=== PATIENT | female | born 1950 | race Caucasian/White ===

== ENCOUNTER → 2023-08-17 11:19 | Outpatient (BNVA) | payer OTHER, SELFPAY | PROVIDERS: PCP Physician Assistant; Visit Provider Internal Medicine Nephrology ==

== ENCOUNTER → 2023-10-24 11:42 | Outpatient (BNVA) | payer OTHER, SELFPAY | PROVIDERS: PCP Physician Assistant; Visit Provider Internal Medicine Nephrology | DX: Z94.0 Kidney transplant status (principal) ==

== ENCOUNTER 2024-05-08 12:15 | Outpatient (REF) | payer MEDICARE, OTHER, SELFPAY ==
--- OUTSIDE RECORDS SUMMARY | 2024-05-08 13:47 | XMS_ITS | Continuity of Care Document ---
Author Organization [facility] Address [address] [place] [id number]- Care Team Providers Care Supervisor Rubber Covering Name Role Phone Toñito Sharpe MD Primary Care Physician Encounter [facility] R [id number] Date(s): 03/11/24 - 04/10/24 [facility] [address] [place] [address] Encounter Type: Triage Allergies, Adverse Reactions, Alerts Substance Criticality Severity Reaction Reaction Severity Status codeine Itching Active Bactrim Tongue swelling Acti ve Immunizations Given and Recorded Vaccine Date Status Refusal Reason SARS-CoV-2 (COVID-19) mRNA BNT-162b2 vac 01/18/22 Recorded SARS-CoV-2 (COVID-19) mRNA BNT-162b2 vac 09/04/21 Recorded SARS-CoV-2 (COVID-19) mRNA BNT-162b2 vac 01/19/21 Recorded SARS-CoV-2 (COVID-19) mRNA BNT-162b2 vac 05/29/20 Recorded SARS-CoV-2 (COVID-19) mRNA BNT-162b2 vac 05/08/20 Recorded hepatitis B adult vaccine 11/08/21 Recorded hepatitis B adult vaccine 10/11/21 Recorded hepatitis B adult vaccine 09/03/21 Recorded hepatitis B adult vaccine 07/12/21 Recorded hepatitis B adult vaccine 04/09/21 Recorded hepatitis B adult vaccine 03/10/21 Recorded Medications aspirin 81 mg oral delayed release tablet 81 mg, 1, tablet, By Mouth, Daily, # 30 tablet, Refills 0, Maintenance, 02/18/22 11:57:00 AM EST, Partial fill upon patient request if the prescription is for a schedule II opioid drug. Start Date: 02/18/22 Status: Ordered Quantity: 30.0 Unit: tablet Repeat number: 1 atorvastatin 40 mg oral tablet 1 tablet = 40 mg, By Mouth, Daily, # 30 tablet, 5 Refills, Maintenance, 02/18/22 11:57:00 AM EST, Tablet, Partial fill upon patient request if the prescription is for a schedule II opioid drug. Start Date: 02/18/22 Status: Ordered Quantity: 30.0 Unit: tablet Repeat number: 1 carvedilol 25 mg oral tablet 25 mg, 1, tablet, By Mouth, 2 times a day, # 60 tablet, Refills 4, Tot. Refills 4, Maintenance, 10/06/22 11:13:00 AM EDT, Route to Pharmacy Electronically, [facility]/pharmacy #[id number], Partial fill upon patientrequest if the prescription is for a schedule II opioid drug., 154.94, cm, 10/06/22 10:41:00 EDT, Height, 64.8, kg, 09/30/22 6:41:00 EDT, Dry Weight Start Date: 10/06/22 Status: Ordered Quantity: 60.0 Unit: tablet Repeat number: 5 doxazosin 4 mg oral tablet 1 tablet = 4 mg, By Mouth, Daily at bedtime, Maintenance, 08/09/23 7:43:00 AM EDT, Tablet Start Date: 08/09/23 Status: Ordered Repeat number: 1 Envarsus XR 0.75 mg oral tablet, extended release See Instructions, 11/17/22 Take with 1mg tablets for a total daily dose of 3mg daily in the AM, # 75 tablet, 3 Refills, Maintenance, 11/03/22 3:42:00 PM EDT, [facility], Partial fill upon patient request if the prescription is for a schedule II opioid drug., 154.94, cm, 11/03/22 13:07:00 EDT, Height, 64.8, kg, 09/30/22 6:41:00 EDT, Dry Weight Start Date: 11/03/22 Status: Ordered Quantity: 75.0 Unit: tablet Repeat number: 4 Envarsus XR 1 mg oral tablet, extended release See Instructions, 11/17/22 Take with 0.75mg tablets for a total daily dose of 3 mg daily in the AM,# 240 tablet, 3 Refills, Maintenance, 09/30/22 3:20:00 PM EDT, [facility], Partial fill upon patient request if the prescription is for a schedule II opioid drug., 154.94, cm, 09/29/22 20:28:00 EDT, Height, 64.8, kg, 09/30/22 6:41:00 EDT, Dry Weight Start Date: 09/30/22 Status: Ordered Quantity: 240.0 Unit: tablet Repeat number: 4 folic acid 0.4 mg oral tablet 1 tablet = 0.4 mg, By Mouth, Daily, # 100 tablet, 0 Refills, Maintenance, 02/18/22 11:58:00 AM EST,Tablet, Partial fill upon patient request if the prescription is for a schedule II opioid drug. Start Date: 02/18/22 Status: Ordered Quantity: 100.0 Unit: tablet Repeat number: 1 levETIRAcetam 250 mg oral tablet 1 tablet, By Mouth, 2 times a day, # 60 tablet, 11 Refills, Maintenance, 11/16/22 8:32:00 AM EDT, [id number], 154.94, cm, 11/15/22 14:56:00 EDT, Height, 64.8, kg, 09/30/22 6:41:00 EDT, Dry Weight Start Date: 11/16/22 Status: Ordered Quantity: 60.0 Unit: tablet Repeat number: 1 losartan 50 mg oral tablet 50 mg, 1, tablet, By Mouth, Daily, # 30 tablet, Refills 3, Tot. Refills 3, Maintenance, 12/22/22 3:41:00 PM EDT, Route to Pharmacy Electronically, [facility], Partial fill upon patient request if the prescription is for a schedule II opioid drug., 154.94, cm, 12/22/22 8:01:00 EDT, Height, 64.8, kg, 09/30/22 6:41:00 EDT, Dry Weight Start Date: 12/22/22 Status: Ordered Quantity: 30.0 Unit: tablet Repeat number: 4 Tizanidine 4 mg, By Mouth, 3 times a day, PRN, Refills 0, Maintenance, Spasm, 03/08/17 2:11:33 PM EST Start Date: 03/08/17 Status: Ordered Repeat number: 1 Vitamin D3 = 2,000 units, By Mouth, Daily, 0 Refills, Maintenance, 01/17/18 9:05:21 AM EDT Start Date: 01/17/18 Status: Ordered Repeat number: 1 Problem List Condition Confirmation Course Effective Dates Status H ealth Status Informant Cardiomyopathy Confirmed Active GERD (gastroesophageal reflux disease) Confirmed Active Status post -donor kidney transplantation 1 Confirmed 09/29/22 Active History of subdural hematoma 2 Confirmed Active Hyperlipidemia Confirmed Active Hypertension Confirmed Active Iliopsoas bursitis Confirmed Active 1campath induction 2s/p Cyndy hole craniotomy Social History Social History Type Response Smoking Status Never smoker entered on: 01/25/16 Sex Sex Representation Female (finding) Patient Care team information Care Team Personnel Name: Nara Lema RN Position: [facility] SN RN Member Role: Primary Care Nurse Name: Jame Bennett MD Position: [facility] Renal MD Member Role: Lifetime Consulting Physician Address: [address] [place], [place] [address] [place] [address]- Telecom: Name: Tang KIM, Zluy Position: [facility] RN Member Role: Primary Care Nurse Name: Jinny Mcclain MD Position: [facility] Renal MD Member Role: Lifetime Consulting Physician Address: [address] [facility] [place] [place] [address]- Telecom: Name: Toñito Sharpe MD Position: [facility] Physician - Primary Care Member Role: PCP Address: [address] [place] [address]- Telecom: Name: Clarisa Rainey Position: [facility] AMB [place] Member Role: Primary Care Nurse Care Team Related Persons Name: HORACE ELIAS Name: IVAN ERWIN Name: FELICIANO WELLS Insurance Providers Guarantor name: MERCEDEZ ELIAS Health Plan Information #: 1 Payer: MEDICARE PART B OUTPT Member Number: NA Policy Number: NA Group Number: NA Health Plan Information #: 2 Payer: [facility] Member Number: NA Policy Number: NA Group Number: NA
--- OUTSIDE RECORDS SUMMARY | 2024-05-08 13:47 | XMS_ITS | Encounter Summary ---
Author Organization [facility] Address [address] [facility] [address] [place] [address] Phone Care Team Providers Care Capsule Maker Name Role Phone Monica Iniguez PA-C Primary Care Provider + Reason for Visit * Reason Comments Med Refill Encounter Details Date Type Department Care Team (Late st Contact Info) Description 06/27/2022 Refill [facility] [address] [place] [phone] David Ferrera MD Social History Tobacco Use Types Packs/Day Years Used Date Smoking Tobacco: Never Smokeless Tobacco: Never Alcohol Use Standard Drinks/Week Comments Yes 0 (1 standard drink = 0.6 oz pure alcohol) Alcoholic Drinks/day: 1-2 drinks per day Comments Unknown Sex and Gender Information Value Date Recorded Sex Assigned at Not on file Legal Sex Female 5:00 PM EST Gender Identity Not on file Sexual Orientation Not on file documented as of this encounter Plan of Treatment Not on file documented as of this encounter Visit Diagnoses Not on filedocumented in this encounter Care Teams Capsule Maker Relationship Specialty Start Date End Date Monica Iniguez PA-C [address] [place] [id number] PCP - General Physician Cloth Feeder 07/05/23 documented as of this encounter
--- OUTSIDE RECORDS SUMMARY | 2024-05-08 13:47 | XMS_ITS | Encounter Summary ---
Author Organization [facility] Address [address] [facility] [facility] [address] [place] [address] Phone Care Team Providers Care Business And Services Instructor Name Role Phone Monica Iniguez PA-C Primary Care Provider + Reason for Visit * Reason Comments Med Refill Encounter Details Date Type Department Care Team (Late st Contact Info) Description 07/11/2022 Refill [facility] [address] [place] [phone] David Ferrera MD Social History Tobacco Use [...] on filedocumented in this encounter Care Teams Business And Services Instructor Relationship Specialty Start Date End Date Monica Iniguez PA-C [address] [place] [address] PCP - General Physician Online Communications Manager 07/05/23 documented as of this encounter
--- OUTSIDE RECORDS SUMMARY | 2024-05-08 13:47 | XMS_ITS | Clinical Summary ---
Author Organization [facility] Address [address] [place] [address] Care Team Providers Care Commercial Sales Specialist Name Role Phone Dyana Lockhart MD Primary Care Provider [phone] Encounters Date Type Department Care Team Description 03/14/2024 8:15 AM EST - 03/14/2024 8:30 AM EST Surgery [facility] [place] [phone] Serjio Parada MD CAT W/IOL LENSX ORA 03/14/2024 6:46 AM EST - 03/14/2024 11:59 PM EST Hospital Encounter [place] [phone] Serjio Parada MD Discharge Disposition: Home or Self Care 03/13/2024 Travel 02/22/2024 9:30 AM EST - 02/22/2024 9:45 AM EST Surgery [facility] Surgery [place] [phone] Serjio Parada MD CAT W/IOL LENSX ORA 02/22/2024 7:54 AM EST - 02/22/2024 11:59 PM EST Hospital Encounter [place] [phone] Serjio Parada MD Discharge Disposition: Home or Self Care 02/21/2024 Travel from Last 3 Months Social History Tobacco Use Types Packs/Day Years Used Date Smoking Tobacco: Never Assessed Sex and Gender Information Value Date Recorded Sex Assigned at Female 02/22/2024 7:55 AM EST Gender Identity Female 02/22/2024 7:55 AM EST Sexual Orientation Heterosexual (straight) 02/21 7:55 AM EST Plan of Treatment Health Maintenance Due Date Last Done Comments Hepatitis C Virus Screening 1950 DTaP/Tdap/Td Vaccines (1 - Tdap) 1969 Pneumococcal Vaccines 50+ (1 of 2 - PCV) 1969 Hepatitis B Vaccines (1 of 3 - Risk Dialysis 4-dose series) 1970 Mammogram 1990 Colonoscopy 1995 Zoster (Shingles) Vaccine (1 of 2) 02/17/2000 DXA Bone Density (Females,Ag es 65 and older) 2015 Influenza Vaccine 11/02/2023 12/25/2016, , 02/26/2014 COVID-19 Vaccine (2023-2 5 season) 2023 01/18/2022, 09/04/2021, 01/19/2021, Additional history exists RSV Vaccine 60 years and old er and Patients (1 - 1-dose 75+ series) 2025 Medical Devices Implanted Type Area General Dentist Device Identifier Shelf Expiration Date Model / Serial / Lot [id number] Lens Iol +24.5 Batool Mod C 13mm 6mm Posterior Chamber 1 Pc - [id number] Implanted:Qty: 1 on 02/22/2024 by Serjio Parada MD at [facility] [place], [place] [employer] CAR [id number] / [id number] / [id number] Lens Iol +23.5 Batool Mod C 13mm 6mm Posterior Chamber 1 Pc - [id number] Implanted:Qty: 1 on 03/14/2024 by Serjio Parada MD at [facility] [place], [place] [employer] CAR [id number] / [id number] / Procedures Procedure Name Priority Date/Time Associated Diagnosis Comments CA XCAPSL CTRC RMVL INSJ IO LENS PROSTH W/O ECP 03/14/2024 8:15 AM EST Nuclear sclerotic cataract of right eye HX PHYSICIAN ORDER 03/14/2024 CA XCAPSL CTRC RMVL INSJ IO LENS PROSTH W/O ECP 02/22/2024 9:30 AM EST Nuclear sclerotic cataract of left eye HX PHYSICIAN ORDER 02/22/2024 from Last 3 Months Results * Physician Order (03/14/2024) Only the most recent of2 resultswithin the time period is included. Narrative 03/14/2024 Ordered by an unspecified provider. Generic Provider HX AMB PROCEDURES from Last 3 Months Care Teams Commercial Sales Specialist Relationship Specialty Start Date End Date Dyana Lockhart MD [address] [place] [id number] PCP - General Family Medicine 03/16/23
--- OUTSIDE RECORDS SUMMARY | 2024-05-08 13:47 | XMS_ITS ---
Author Name [facility] Organization Unknown Problems Problem Status Onset Date Problem Type Date of Resoluti on Source Nuclear sclerotic cataract of left eye active EncounterDiagnosisAct CCT
--- OUTSIDE RECORDS SUMMARY | 2024-05-08 13:47 | XMS_ITS | Clinical Summary ---
Author Organization [facility], Address [address] [place] [address] Phone Care Team Providers Care Rheumatologist Name Role Phone Monica Iniguez PA-C Primary Care Provider + Allergies Active Allergy Reactions Criticality Noted Date Comments Sulfamethoxazole-Trimethop rim Swelling,Other (see comments) High 10/23/2020 Tongue swelling Codeine Itching Medium 10/23/2020 Sulfamethoxazole Other (see comments) High 10/06/2021 Tongue swelling Trimethoprim Other (see comments) High 10/29/2020 Tongue swelling Medications tiZANidine (ZANAFLEX) 4 MG tablet Take 1 tablet by mouth if needed 1 Active Cholecalciferol (Vitamin D) 25 MCG (1000 UT) tablet Take 2,000 Units by mouth 1 (one) time each day Active aspirin (ST QUITA) 81 MG EC tablet Take 81 mg by mouth 1 (one) time each day Active folic acid (FOLVITE) 400 MCG tablet TAKE 1 TABLET (0.4 MG) BY ORAL ROUTE ONCE DAILY 2 Active calcium carbonate (TUMS) 500 MG chewable tablet Chew 1 tablet 1 (one) time each day Active B complex-vitamin C-folic acid (NEPHROCAPS) 1 MG capsule Take 1 capsule by mouth 1 (one) time each day Active valGANciclovir (VALCYTE) 450 MG tablet Take 450 mg by mouth 1 (one) time each day 3 Active levETIRAcetam (KEPPRA) 750 MG tablet Take 750 mg by mouth in the morning and 750 mg in the evening. Active doxazosin (Cardura) 4 MG tablet Take 1 tablet (4 mg total) by mouth every night 90 tablet 3 3 Active losartan (COZAAR) 100 MG tablet 3 Active atorvastatin (LIPITOR) 40 MG tabletIndication s:Hyperlipidemia , not otherwise specified Take 1 tablet (40 mg total) by mouth 1 (one) time each day 30 tablet 11 3 Active carvedilol (COREG) 6.25 MG tabletIndication s:Stage 5 chronic kidney disease (HCC),Essential hypertension Take 4 tablets (25 mg total) by mouth in the morning and 4 tablets (25 mg total) in the evening. Take with meals. 720 tablet 3 3 Active cinacalcet (SENSIPAR) 30 MG tablet Take 1 tablet (30 mg total) by mouth 1 (one) time each day 30 tablet 11 3 Active Additional Information Patient taking differently:30 mg Oral Daily, Pt is now taking them 3 times a weekMond, Mon and Monday., Reported on 04/19/2023 furosemide (LASIX) 20 MG tabletIndication s:Edema, not otherwise specified Take 1 tablet (20 mg total) by mouth 1 (one) time each day 30 tablet 2 3 Active cetirizine (ZyrTEC) 5 MG chewable tablet Chew 1 tablet (5 mg total) 1 (one) time each day if needed for allergies 30 tablet 4 Active entecavir (BARACLUDE) 0.5 MG tablet Take 0.5 mg by mouth 1 (one) time each day 4 Active LORazepam (Ativan) 0.5 MG tabletIndication s:Insomnia, not otherwise specified Take 1 tablet (0.5 mg total) by mouth at night if needed for anxiety 30 tablet 4 Active Envarsus XR 1 MG tablet sustained-releas e 24 hourIndications: Kidney transplant status Take 3 mg by mouth 1 (one) time each day Take three 1 mg tablets along with one 0.75 mg tablet for a total daily dose of 3.75 mg 90 tablet 11 4 025 Active Envarsus XR 0.75 MG tablet sustained-releas e 24 hourIndications: Kidney transplant status Take 0.75 mg by mouth 1 (one) time each day Take one 0.75 mg tablet along with three 1 mg tablets for a total daily dose of 3.75 mg 30 tablet 11 4 025 Active tiZANidine (ZANAFLEX) 2 MG capsuleIndicatio ns:Spasm of back muscles Take 1 capsule (2 mg total) by mouth 3 (three) times a day if needed for muscle spasms 30 capsule 4 025 Active magnesium oxide 400 (240 Mg) MG tabletIndication s:Hypomagnesemia Take 400 mg by mouth in the morning and 400 mg in the evening. 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 History of renal transplant 09/29/202201/01 Overview (01/19/2023): campath induction Subdural hematoma 10/08/2021 Iliopsoas bursitis 10/06/2021 Degenerative joint disease involving multiple rahul ints 12/23/2020 Dependence on renal dialysis 12/23/2020 Dyslipidemia 12/23/2020 End stage renal disease 12/23/2020 Gastroesophageal reflux disease 12/23/2020 Low back pain 12/23/2020 Sacroiliac disorder 12/23/2020 Type 2 diabetes mellitus 12/23/2020 Stage 5 chronic kidney disease 11/02/2020 Secondary hyperparathyroidism of renal origin Essential hypertension 10/23/2020 Immunizations Name Administration Dates Next Due Hepatitis B 11/08/2021,,09/03/2021,07/12/2021,04/09/2021,11/2020 Pfizer SARS-COV-2 01/18/2022,09/04/2021,01/20/20 21,05/29/2020,05/08/2020 Family History Medical History Relation Comments Hypertension Father Heart disease Mother Hypertension Mother Relation Status Comments Father Mother Social History Tobacco Use Types Packs/Day Years Used Date Smoking Tobacco: Never Smokeless Tobacco: Never Tobacco Cessation:Counseling Given: No Alcohol Use Standard Drinks/Week Comments Yes 0 (1 standard drink = 0.6 oz pure alcohol) Alcoholic Drinks/day: 1-2 drinks per day Comments Unknown Sex and Gender Information Value Date Recorded Sex Assigned at Not on file Legal Sex Female 5:00 PM EST Gender Identity Not on file Sexual Orientation Not on file Last Filed Vital Signs Vital Sign Reading Time Taken Comments Blood Pressure 130/70 07/05/2023 11:17 AM EDT Pulse 58 07/05/2023 11:17 AM EDT Temperature 36.3 ??C (97.4 ??F) 10/10/2022 8:57 AM ED T Respiratory Rate 16 04/11/2022 7:58 AM EST Oxygen Saturation 99% 07/05/2023 11:17 AM EDT Inhaled Oxygen Concentration - - Weight 63.5 kg (140 lb) 07/05/2023 11:17 AM EDT Height 154.9 cm (5' 1 ) 01/03/2023 9:10 AM EDT Body Mass Index 26.45 01/03/2023 9:10 AM EDT Plan of Treatment Health Maintenance Due Date Last Done Comments Breast Cancer Screening 1950 Pneumococcal Vaccine: 65+ Years (1 of 2 - PCV) 02[birth year]17/1956 Diabetes: Ophthalmology Exam 11/02/2020 Diabetes: Pedal Pulse Checked 11/02/2020 Diabetes: Sensory Foot Exam 11/02/2020 Diabetes: Visual Foot Exam 11/02/2020 Diabetes: Hemoglobin A1C 04/07/2022 022, 10/06/2021, 07/07/2021, Additional history exists Colonoscopy (Post-Transplant Patient) 10/05/2022 Mammogram (Post-Transplant Patient) 10/05/2022 Pelvic Exam (Post-Transplant Patient) 10/05/2022 Influenza Vaccine (#1) 2023 Hepatitis B Vaccine Aged Out 11/08/2021, 10/11/2021, 09/03/2021, Additional history exists No longer eligible based on patient's age to complete this topic Procedures Procedure Name Priority Date/Time Associated Diagnosis Comments SPECIAL CHEMISTRY Routine 01/05/2022 3:3 0 PM EDT from Last 3 Months or Most Recently Relevant to Health Maintenance Results * (ABNORMAL) SPECIAL CHEMISTRY (01/05/2022 3:30 PM EDT) Hemoglobin A1C 4.3(L) 4.8 - 5.9 % APS SPECTRA PVNMA 01/05/2022 3:30 PM EDT 01/06/2022 7:16 AM EDT Narrative APS SPECTRA PVNMA - 01/05/2022 3:30 PM EDT Unless otherwise specified, test(s) performed at: [facility], [address] [place] [address] [employer]: Rosendo Long M.D. For any questions, please call customer service at FREQUENCY:QUARTERLY Resulting Agency Comment Specimen source: Blood David Ferrera MD LAB BLOOD BANK TEST ORDERABLES F inal Result APS SPECTRA PVNMA from Last 3 Months or Most Recently Relevant to Health Maintenance Insurance UNICARE Member Subscriber Plan / Payer (Ef fective 2015-Present) Name:Daisy Reyes Relation to Subscriber:Self Name:Daisy Reyes Payer ID:Not on file Type:Not on file Address: [place] [id number] MEDICARE [facility] MEDICARE Care Teams Rheumatologist Relationship Specialty Start Date End Date Monica Iniguez PA-C [address] [place], [place] [id number] PCP - General Physician Child & Adolescent Psychiatrist 07/05/23
--- OUTSIDE RECORDS SUMMARY | 2024-05-08 13:47 | XMS_ITS | Clinical Summary ---
Author Organization [facility] Address [address] [place] [address] Phone Care Team Providers Care Produce Wrapper Name Role Phone Dyana Lockhart MD Primary Care Provider [phone] Allergies Active Allergy Reactions Criticality Noted Date Comments Codeine 12/16/2020 Sulfamethoxazole-Trimethoprim 2020 Medications Medication Sig Dispensed Refills Start Date End Date Status aspirin 81 mg EC tablet Take 1 Tablet by mouth daily. Active atorvastatin (LIPITOR) 40 mg tablet Take 1 Tablet by mouth daily. Active atovaquone (MEPRON) 750 mg/5 mL suspension Take 10 mL by mouth daily. Active cetirizine (ZyrTEC) 5 mg chewable tablet Take 1 Tablet by mouth. 04/19/2023 Active cholecalciferol (VITAMIN D-3) 25 mcg (1,000 unit) tablet Take 2 Tablets by mouth daily. Active cinacalcet (SENSIPAR) 30 mg tablet Take 1 Tablet by mouth. 03/15/2023 Active cyclobenzaprine (FLEXERIL) 5 mg tablet Take 1 Tablet by mouth. 05/31/2023 05/30/2024 Active entecavir (BARACLUDE) 0.5 mg tablet Take 1 Tablet by mouth every morning. Active levETIRAcetam (KEPPRA) 750 mg tablet Take 1 Tablet by mouth 2 times daily. Active losartan (COZAAR) 100 mg tablet daily. 01/07/2023 Active mirtazapine (REMERON) 7.5 mg tablet Take 1 Tablet by mouth daily. Active tacrolimus (Envarsus XR) 0.75 mg extended release tablet Take 1 Tablet by mouth every morning. Active tiZANidine (ZANAFLEX) 4 mg capsule Take 1 Capsule by mouth as needed. Active valGANciclovir (VALCYTE) 450 mg tablet Take 1 Tablet by mouth daily. Active magnesium oxide (MAG-OX) 400 mg (241.3 elemental magnesium) tablet Take 400 mg by mouth. 04/19/2023 04/18/2024 Active Problems Problem Noted Date Diagnosed Date Cardiomyopathy 03/24/2022 Overview (03/11/2024): - See echo under NSTEMI section Last Assessment & Plan: Patient is euvolemic on exam. Unclear if she will have significant resolution of her LV hypertrophy even after renal transplant but her EF has been normal and she has no heart failure symptoms. Continue current Lasix every other day. See further medication recommendations on her hypertension section. Non-ST elevation IN (NSTEMI) 03/24/2022 Overview (03/11/2024): - I met her in consultation in the hospital in November into early December 2021- she presented with hypoxic respiratory failure ultimately secondary to COVID-19 pneumonia - In the midst of all this, she had high-sensitivity troponins checked and trended and there was an acute rise going from 248 [id number] down to 832 with flat CK but mildly elevated MB fraction; this was also associated with deep T wave inversions in the anterolateral leads making acute coronary syndrome a possibility - An echocardiogram was performed (I have independently reviewed images) it showed moderate, concentric left ventricular hypertrophy with normal LV cavity size and systolic function, normal regional wall motion with ejection fraction of 60 to 65%, normal RV size and systolic function with pronounced RV hypertrophy, severe left atrial enlargement, grade 2 diastolic dysfunction consistent with increased left atrial pressure, evidence of pulmonary hypertension, evidence of high rate atrial pressure, trileaflet aortic valve with mild aortic stenosis with dimensionless index of 0.64 and calculated aortic valve area of 1.8 cm??- 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; alternatively, 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 though it does not have the classic apical variant appearance - Cath eventually performed on 04/28/2022 showing LVEDP of 8 mmHg with 18 mmHg mean gradient across the aortic valve consistent with mild aortic stenosis, normal left main, minor luminal irregularities of the LAD, normal circumflex, minor luminal irregularities of the RCA - Given hypertrophic left ventricle, proceeded with PYP scan which was negative for TTR amyloid - Also proceeded with a basic AL amyloid screening with SIFE, UIFE, serum free light chains, and urine free light chains- all unremarkable and not suggestive of AL amyloid Last Assessment & Plan: Recurrent symptoms, 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 So as to avoid confusion, I believe that the laborer prestressed concrete should be the sole person in charge of blood pressure medication alterations versus her primary care. This is mainly so we avoid any interactions with transplant medications. She has regularly been following with her laborer prestressed concrete and during those visits her blood pressures have been steadily in the 130s systolic. I have not made any changes today in spite of elevated blood pressures at today's visit. I suspect this is whitecoat phenomenon. Continue current regimen of losartan 100 mg daily, carvedilol 6.25 twice daily, Lasix 20 mg every other day, doxazosin 4 mg daily TIA (transient ischemic attack) 03/24/2022 Aortic stenosis 03/22/2022 Overview (03/11/2024): Mild / moderate Last Assessment & Plan: See echocardiogram under NSTEMI section, mild most recently and mild by exam to at most moderate, surveillance echo prior to next year's visit Immunizations Name Administration Dates Next Due Pfizer SARS-CoV-2 COVID-19, mRNA, LNP-S, preservative free 01/18/2022,09/04/2021,01/19/2021,2020,05/08/2020 Family History Medical History Relation Name Comments No Known Problems Father No Known Problems Mother Relation Name Status Comments Father Mother Social History Tobacco Use Types Packs/Day Years Used Date Smoking Tobacco: Never Smokeless Tobacco: Never Alcohol Use Standard Drinks/Week Comments Yes 0 (1 standard drink = 0.6 oz pur e alcohol) Sex and Gender Information Value Date Recorded Sex Assigned at Not on file Gender Identity Not on file Sexual Orientation Not on file Obstetrics History Last Filed Vital Signs Vital Sign Reading Time Taken Comments Blood Pressure 155/70 06/15/2023 10:20 AM EDT Pulse 72 06/15/2023 10:20 AM EDT Temperature - - Respiratory Rate - - Oxygen Saturation - - Inhaled Oxygen Concentration - - Weight 62.4 kg (137 lb 9.6 oz) 06/15/2023 10:20 AM EDT Height 157.5 cm (5' 2 ) 06/15/2023 10:20 AM EDT Body Mass Index 25.17 06/15/2023 10:20 AM EDT Plan of Treatment Upcoming Encounters Date Type Department Care Team (Late st Contact Info) Description 06/13/2024 11:00 AM EDT Ancillary Procedure [facility] [address] [place] [address] [place] [address] Health Maintenance Due Date Last Done Comments Breast Cancer Screening 1950 Pneumococcal Vaccine: 65+ Years (1 of 2 - PCV) 02/17/1956 DTaP,Tdap,and Td Vaccines (1 - Tdap) 1969 Zoster Vaccines (1 of 2) 1969 RSV Immunization Patients 60+ Years Old (1 - Risk 60-74 years 1-dose series) 2010 Cholesterol Screening (Lipid Panel) 03/05/2022 Colorectal Cancer Screening: Colonoscopy 03/05/2022 Depression Screening 03/05/2022 Falls Risk Assessment 03/05/2022 Hepatitis C Screening 03/05/2022 Medicare Annual Wellness Visit 03/05/2022 Osteoporosis Screening (Bone Density Screening) 03/05/2022 Social Influencers of Health Screening 03/05/2022 Hypertension/CHF/CAD Annual BMP Blood Test 05/03/2023 COVID-19 Vaccine ( season) 2023 01/18/2022, 09/04/2021, 01/19/2021, Additional history exists Influenza Vaccine (#1) 2023 HIB Vaccines Aged Out No longer eligi ble based on patient's age to complete this topic HPV Vaccines Aged Out No longer eligi ble based on patient's age to complete this topic Hepatitis A Vaccines Aged Out No long er eligible based on patient's age to complete this topic Hepatitis B Vaccines Aged Out No long er eligible based on patient's age to complete this topic IPV Vaccines Aged Out No longer eligi ble based on patient's age to complete this topic MMR Vaccines Aged Out No longer eligi ble based on patient's age to complete this topic Meningococcal ACWY Vaccine Aged Out N o longer eligible based on patient's age to complete this topic RSV Immunization Patients Under 20 months Aged Out No longer eligible based on patient's age to complete this topic Varicella Vaccines Aged Out No longer eligible based on patient's age to complete this topic Advance Directives Documents on File Type Date Recorded Patient Wafer Fabricator Expl anation Health Care Decision (hx) 09/25/2015 AD KERR DIRECTIVE Health Care Decision (hx) 09/25/2015 AD KERR DIRECTIVE Health Care Decision (hx) 09/25/2015 AD KERR DIRECTIVE Health Care Decision (hx) 09/25/2015 AD KERR DIRECTIVE Health Care Decision (hx) 09/25/2015 AD KERR DIRECTIVE Health Care Decision (hx) 09/25/2015 AD KERR DIRECTIVE Health Care Decision (hx) 09/25/2015 AD KERR DIRECTIVE Health Care Decision (hx) 09/25/2015 AD KERR DIRECTIVE Health Care Decision (hx) 09/25/2015 AD KERR DIRECTIVE Health Care Decision (hx) 09/25/2015 AD KERR DIRECTIVE Health Care Decision (hx) 09/25/2015 AD KERR DIRECTIVE Health Care Decision (hx) 09/25/2015 AD KERR DIRECTIVE Health Care Decision (hx) 09/25/2015 AD KERR DIRECTIVE Health Care Decision (hx) 09/25/2015 AD KERR DIRECTIVE Health Care Decision (hx) 09/25/2015 AD KERR DIRECTIVE Health Care Decision (hx) 09/25/2015 AD KERR DIRECTIVE Health Care Decision (hx) 09/25/2015 AD KERR DIRECTIVE Health Care Decision (hx) 09/25/2015 AD KERR DIRECTIVE Health Care Decision (hx) 09/25/2015 AD KERR DIRECTIVE Health Care Decision (hx) 09/25/2015 AD KERR DIRECTIVE Health Care Decision (hx) 09/25/2015 AD KERR DIRECTIVE Health Care Decision (hx) 09/25/2015 AD KERR DIRECTIVE Health Care Decision (hx) 09/25/2015 AD KERR DIRECTIVE Health Care Decision (hx) 09/25/2015 AD KERR DIRECTIVE Care Teams Produce Wrapper Relationship Specialty Start Date End Date Dyana Lockhart MD [address] [place] [address] PCP - General 09/24/15
[2024-05-08 18:27] LABS: MANUAL DIFF FLAG NO
[2024-05-08 18:36] LABS: Basophils Percent Auto 0.4 % (0-2); Eosinophils Absolute Auto 0.3 X10*3/uL (0.0-0.4); Eosinophils Percent Auto 5.7 % (0-4); Hematocrit 31.6 % (37.0-47.0); Hemoglobin 10.5 g/dl (12.0-16.0); Imm Gran Abs Auto 0.01 X10*3/uL (0.00-0.03); Imm Gran Pct Auto 0.2 % (0.0-0.4); Lymphocytes Absolute Auto 1.1 X10*3/uL (1.2-4.9); Mean Corpuscular HGB Conc 33.2 g/dl (31.0-35.0); Mean Corpuscular Hemoglobin 30.6 pg (27.0-33.0); Mean Corpuscular Volume 92.1 fL (80.0-98.0); Mean Platelet Volume 9.2 fL (9.4-12.3); Monocytes Absolute Auto 0.6 X10*3/uL (0.1-1.2); Monocytes Percent Auto 12.2 % (2-11); Neutrophils Absolute Auto 2.7 x10*3/uL (2.0-8.3); Neutrophils Percent Auto 57.5 % (45-73); Platelet Count 170 X10*3/uL (160-400); Red Blood Count 3.43 X10*6/uL (4.20-5.50); Red Cell Distribution Width 13.3 % (11.0-16.0); White Blood Count 4.8 X10*3/uL (4.8-10.8)
[2024-05-08 18:44] LABS: Estimated Average Glucose 137 mg/dL; Hemoglobin A1C 131.5048 umol/L; Hemoglobin A1c % 6.4 % (<6.0); Total Hemoglobin (HGBA1C) 2842.6896 umol/L
[2024-05-08 18:44] LABS: Anion Gap 7 (12-20); Blood Urea Nitrogen 27 mg/dL (9-16); Calcium 10.4 mg/dL (8.4-10.2); Carbon Dioxide 22 mmol/L (22-29); Chloride 112 mmol/L (96-108); Estimated Glomerular Filt Rate > 60; Potassium 4.5 mmol/L (3.3-5.1); Sodium 136 mmol/L (135-145)
[2024-05-08 18:59] LABS: Alanine Aminotransferase 25 U/L (0-31); Albumin Level 3.7 g/dL (3.5-5.0); Alkaline Phosphatase 70 U/L (39-117); Anion Gap 7 (12-20); Aspartate Amino Transferase 25 U/L (5-31); Bilirubin Total 0.4 mg/dL (0.0-1.0); Blood Urea Nitrogen 27 mg/dL (9-16); Calcium 10.4 mg/dL (8.4-10.2); Carbon Dioxide 22 mmol/L (22-29); Chloride 112 mmol/L (96-108); Cholesterol 158 mg/dL (<200); Estimated Glomerular Filt Rate > 60; Glucose Random 107 mg/dL (60-115); Potassium 4.5 mmol/L (3.3-5.1); Sodium 136 mmol/L (135-145); Total Protein 7.3 g/dL (6.5-8.0)
[2024-05-08 19:15] LABS: TSH reflex Free T4 0.49 uIU/mL (0.32-4.0)
[2024-05-09 20:01] LABS: Tacrolimus Prograf 6.9 mcg/L
== END 2024-05-08 12:16 | disposition home or self-care (01) ==
LOC: HO.HKASLDS 12:15
PROVIDERS: PCP Internal Medicine; Visit Provider Internal Medicine Nephrology
DX: Z94.0 Kidney transplant status (principal); I10 Essential (primary) hypertension; B34.8 Other viral infections of unspecified site; K21.9 Gastro-esophageal reflux disease without esophagitis; I12.9 Hypertensive chronic kidney disease with stage 1 through stage 4 chronic kidney disease, or unspecified chronic kidney disease; E11.22 Type 2 diabetes mellitus with diabetic chronic kidney disease; N18.6 End stage renal disease; E55.9 Vitamin D deficiency, unspecified; E78.00 Pure hypercholesterolemia, unspecified; G40.909 Epilepsy, unspecified, not intractable, without status epilepticus
CPT/HCPCS: 36415; 80051; 80053; 80197; 82310; 82465; 82565; 83036; 84443; 84520; 85025

== ENCOUNTER → 2024-05-14 10:36 | Outpatient (BNVA) | payer MEDICARE, OTHER, SELFPAY | PROVIDERS: PCP Physician Assistant; Visit Provider Internal Medicine Nephrology | DX: I10 Essential (primary) hypertension (principal); I42.9 Cardiomyopathy, unspecified; E78.5 Hyperlipidemia, unspecified; B34.8 Other viral infections of unspecified site; Z94.0 Kidney transplant status | CPT/HCPCS: 99212 ==

== ENCOUNTER 2024-08-20 14:58 | Outpatient (REF) | payer MEDICARE, OTHER, SELFPAY ==
--- OUTSIDE RECORDS SUMMARY | 2024-08-20 16:07 | XMS_ITS | Clinical Summary ---
Author Organization [facility], Address [address] [place] [address] Phone Care Team Providers Care Licensed Practical Nurse Instructor Name Role Phone Monica Iniguez PA-C [...] needed for anxiety 30 tablet 4 Active tiZANidine (ZANAFLEX) 2 MG capsuleIndicatio ns:Spasm of back muscles Take 1 capsule (2 mg total) by mouth 3 (three) times a day if needed for muscle spasms 30 capsule 4 Active Envarsus XR 1 MG tablet sustained-releas e 24 hourIndications: Kidney transplant status Take 3 mg by mouth 1 (one) time each day Take three 1 mg tablets along with one 0.75 mg tablet for a total daily dose of 3.75 mg 90 tablet 11 4 025 Envarsus XR 0.75 MG tablet sustained-releas e 24 hourIndications: Kidney transplant status Take 0.75 mg by mouth 1 (one) time each day Take one 0.75 mg tablet along with three 1 mg tablets for a total daily dose of 3.75 mg 30 tablet 11 4 025 Active Problems Problem Noted Date Diagnosed Date Cardiomyopathy 01/19/2023 01/19/2023 History of subdural hematoma 01/19/2023 Overview (01/19/2023): s/p Lawler hole craniotomy Hyperlipidemia 01/19/2023 01/19/2023 Anemia in [...] of renal origin Essential hypertension 10/23/2020 Immunizations Immunization Administration Dates Next Due Hepatitis B 11/08/2021, 2,09/03/2021,07/12/2021,04/09/2021,11/2020 Pfizer SARS-COV-2 01/18/2022,09/04/2021,01/20/20 21,05/29/2020,05/08/2020 Family History Medical [...] Comments Breast Cancer Screening 1950 Pneumococcal Vaccine: 50+ Years (1 of 2 - PCV) 1969 Diabetes: Ophthalmology Exam 11/02/2020 Diabetes: Pedal Pulse Checked 11/02/2020 Diabetes: Sensory Foot Exam 11/02/2020 Diabetes: Visual Foot Exam 11/02/2020 Diabetes: Hemoglobin A1C 04/07/2022 022, 10/06/2021, 07/07/2021, Additional history exists Colonoscopy (Post-Transplant Patient) 10/05/2022 Mammogram (Post-Transplant Patient) 10/05/2022 Pelvic Exam (Post-Transplant Patient) 10/05/2022 Influenza Vaccine (Season Ended) 2024 Hepatitis B Vaccine Aged Out 11/08/2021, 10/11/2021, [...] EDT Unless otherwise specified, test(s) performed at: [place] [address] FIRER LOCOMOTIVE: Rosendo Long M.D. For any questions, please call customer service at FREQUENCY:QUARTERLY Resulting Agency Comment Specimen source: Blood David Ferrera MD LAB BLOOD BANK TEST ORDERABLES F inal Result APS SPECTRA PVNMA from Last 3 Months or Most Recently Relevant to Health Maintenance Insurance Medicare [facility] Medicare Care Teams Licensed Practical Nurse Instructor Relationship Specialty Start Date End Date Monica Iniguez PA-C [address] [place] [id number] PCP - General Physician Or Rn 07/05/23
--- OUTSIDE RECORDS SUMMARY | 2024-08-20 16:07 | XMS_ITS | Encounter Summary ---
Author Organization [facility] Address [address] [facility] [address] [facility] [address] [place] [address] Phone Care Team Providers Care Ambulatory Services Representative Name Role Phone Monica Iniguez PA-C Primary Care Provider + Reason for Visit * Reason Comments Med Refill Encounter Details Date Type Department Care Team (Late st Contact Info) Description 06/27/2022 Refill [facility] [address] [place] [phone] David Ferrera MD Social History Tobacco Use [...] on filedocumented in this encounter Care Teams Ambulatory Services Representative Relationship Specialty Start Date End Date Monica Iniguez PA-C [address] [place] [phone] PCP - General Physician Textile Colorist Dyer 07/05/23 documented as of this encounter
--- OUTSIDE RECORDS SUMMARY | 2024-08-20 16:07 | XMS_ITS | Clinical Summary ---
Author Organization [facility] Address [address] [place] [address] Care Team Providers Care Mechanical Piping Designer Name Role Phone Dyana Lockhart MD Primary Care Provider [phone] Social History Tobacco Use Types Packs/Day Years Used Date Smoking Tobacco: Never Assessed Comments Unknown Sex and Gender Information Value Date Recorded Sex Assigned at Female 02/22/2024 7:55 AM EST Legal Sex Female 4:12 PM EST Gender Identity Female 02/22/2024 7:55 AM [...] Density (Females,Ag es 65 and older) 2015 COVID-19 Vaccine (2023-2 5 season) 2023 01/18/2022, 09/04/2021, 01/19/2021, Additional history exists Influenza Vaccine 11/01/2024 12/25/2016, , 02/26/2014 RSV Vaccine 60 years and old er and Patients (1 - 1-dose 75+ series) 2025 Medical Devices Implanted Type Area Instrument Engineer Device Identifier Shelf Expiration Date Model / Serial / Lot [id number] Lens Iol +24.5 Batool Mod C 13mm 6mm Posterior Chamber 1 - [id number] Implanted:Qty: 1 on 02/22/2024 by Srejio Parada MD at [facility] [place] Lens [employer] [id number] / [id number] / [id number] Lens Iol +23.5 Batool Mod C 13mm 6mm Posterior Chamber 1 - [id number] Implanted:Qty: 1 on 03/14/2024 by Serjio Parada MD at [facility] [place] Lens [employer] CAR [id number] / [id number] / Insurance MEDICARE PART A & B [facility] MEDICARE Care Teams Mechanical Piping Designer Relationship Specialty Start Date End Date Dyana Lockhart MD [address] [facility] [address] [place] [address] PCP - General Family Medicine 03/16/23
--- OUTSIDE RECORDS SUMMARY | 2024-08-20 16:07 | XMS_ITS | Encounter Summary ---
Author Organization [facility] Address [address] [facility] [address] [place] [address] Phone Care Team Providers Care Pick Up Operator Name Role Phone Monica Iniguez PA-C Primary Care Provider + Reason for Visit * Reason Comments Med Refill Encounter Details Date Type Department Care Team (Late st Contact Info) Description 07/11/2022 Refill [facility] [address] [place] [phone] David Ferrera MD Social History Tobacco Use [...] on filedocumented in this encounter Care Teams Pick Up Operator Relationship Specialty Start Date End Date Monica Iniguez PA-C [address] [place] [address] PCP - General Physician Ice Cream Freezer 07/05/23 documented as of this encounter
--- OUTSIDE RECORDS SUMMARY | 2024-08-20 16:07 | XMS_ITS | Clinical Summary ---
Author Organization [facility] Address [address] [facility] [place] [address] Phone Care Team Providers Care Spring Machine Operator Name Role Phone Dyana Lockhart MD Primary Care Provider [phone] Allergies Active Allergy Reactions Criticality Noted Date Comments Codeine 12/16/2020 Sulfamethoxazole-Trimethoprim Angioedema High 2020 Medications aspirin 81 mg EC tablet Take 1 Tablet by mouth daily. Active atovaquone (MEPRON) 750 mg/5 mL suspension Take 10 mL by mouth daily. Active cetirizine (ZyrTEC) 5 mg chewable tablet Take 1 Tablet by mouth. 4 Active cholecalcifero l (VITAMIN D-3) 25 mcg (1,000 unit) tablet Take 2 Tablets by mouth daily. Active cinacalcet (SENSIPAR) 30 mg tablet Take 1 Tablet by mouth. 3 Active entecavir (BARACLUDE) 0.5 mg tablet Take 1 Tablet by mouth every morning. Active levETIRAcetam (KEPPRA) 750 mg tablet Take 1 Tablet by mouth 2 times daily. Active mirtazapine (REMERON) 7.5 mg tablet Take 1 Tablet by mouth daily. Active valGANciclovir (VALCYTE) 450 mg tablet Take 1 Tablet by mouth daily. Active losartan (COZAAR) 50 mg tablet Take 1 tablet (50 mg total) by mouth 2 (two) times a day. 3 Active doxazosin (CARDURA) 4 mg tablet Take 1 tablet (4 mg total) by mouth. 3 Active carvediloL (COREG) 6.25 mg tablet Take 1 tablet (6.25 mg total) by mouth 2 (two) times a day with meals. 3 Active Envarsus XR 1 mg extended release tablet Take 4 tablets (4 mg total) by mouth 1 (one) time each day before breakfast. 3 Active magnesium oxide (MAG-OX) 400 mg (241.3 elemental magnesium) tablet 5 Active folic acid (FOLVITE) 400 mcg tablet Take 1 tablet (0.4 mg total) by mouth 1 (one) time each day. Active atorvastatin (LIPITOR) 40 mg tablet Take 1 tablet (40 mg total) by mouth at bedtime. Active omeprazole OTC (PriLOSEC OTC) 20 mg EC tablet Take 1 tablet (20 mg total) by mouth 1 (one) time each day. Do not crush, chew, or split. Active polyethylene glycol (Golytely) 236-22.74-6.74 -5.86 gram solution Take 4L by mouth once for one dose. May substitue any PEG. Starting at 6PM the night before your procedure drink 1 8oz glasses at your own pace until you complete half of the gallon. Finish 2nd half of the gallon 5 hours before your procedure. 4000 mL 5 Active bisacodyL (DULCOLAX) 5 mg EC tablet Take 2 tablets by mouth right before beginning bowel prep. See instructions provided by the office 2 tablet 5 Active omeprazole (PriLOSEC) [address] capsule 5 Active tiZANidine (ZANAFLEX) 4 mg tablet Take 1 tablet (4 mg total) by mouth 2 (two) times a day if needed. 5 Active atorvastatin (LIPITOR) 40 mg tablet Take 1 Tablet by mouth daily. 025 Discontin ued(Dupli sammy order) tacrolimus (Envarsus XR) 0.75 mg extended release tablet Take 1 Tablet by mouth every morning. 025 Discontin ued(Dose adjustmen t) tiZANidine (ZANAFLEX) 4 mg capsule Take 1 Capsule by mouth as needed. 025 Discontin ued(Dupli sammy order) cholecalcifero l (Vitamin D3) 50 mcg (2,000 unit) capsule Take 1 capsule (2,000 Units total) by mouth. 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 Unclear if she will have significant resolution of her LV hypertrophy even after renal transplant but her EF has been normal and she has no heart failure symptoms. Continue current Lasix every other day. See further medication recommendations on her hypertension section. Non-ST elevation MD (NSTEMI) (CMS/HCC V24, CMS/H CC V28) 03/24/2022 Overview (03/11/2024): - I met her in consultation in the hospital in November into early December 2021- she presented with hypoxic respiratory failure ultimately secondary to COVID-19 pneumonia - In the midst of all this, she had high-sensitivity troponins checked and trended and there was an acute rise going from 248 [id number] down to 832 with flat CK but [...] to avoid confusion, I believe that the cloth dyer should be the sole person in charge of blood pressure medication alterations versus her primary care. This is mainly so we avoid any interactions with transplant medications. She has regularly been following with her cloth dyer and during those visits her blood pressures [...] surveillance echo prior to next year's visit Intracranial subdural hematoma ([facility] V24, [facility] V28) 10/08/2021 Iliopsoas bursitis 10/06/2021 Degenerative joint disease involving multiple rahul ints 12/23/2020 Disorder of sacroiliac joint 12/23/2020 Dyslipidemia 12/23/2020 End stage renal disease ([facility] V24, [facility] V2 8) 12/23/2020 Gastroesophageal reflux disease 12/23/2020 Assessment & Plan (07/09/2024 4:48 PM EDT): Controlled with PPI daily, continue as directed Discussed EGD add-on given she is due for colonoscopy, patient declined today. Reviewed return precautions if symptoms persist. Reviewed risks of missed lesion, delay in diagnosis with EGD. Low back pain 12/23/2020 Type 2 diabetes mellitus ([facility] V24, [facility] V 28) 12/23/2020 Secondary hyperparathyroidism of renal origin ([facility] [place] V24) 11/02/2020 Stage 5 chronic kidney disease ([facility] V24, [facility] V28) 11/02/2020 Resolved Problems Problem Noted Date Diagnosed Date Resolved Date Dependence on renal dialysis ([facility] V24) 12/23/2020 07/09/2024 Encounters Date Type Department Care Team Description 07/09/2024 11:20 AM EDT Consult Gastroenterology - [address] [facility] 299 [facility] [address] [place] [address] Vivian Camarillo PA Gastroesophageal reflux disease without esophagitis (Primary Dx); Colon cancer screening 06/18/2024 Telephone Gastroenterology - [place] [address] [facility] [address] [place] [address] Ebony Bradley MD information needed from Last 3 Months Immunizations Name Administration Dates Next Due Pfizer SARS-CoV-2 COVID-19, mRNA, LNP-S, preservative free 01/18/2022,09/04/2021,01/19/2021,2020,05/08/2020 Surgical History Surgery Date Site/Laterality Comments HYSTERECTOMY BACK SURGERY TRIGGER FINGER RELEASE 07/03/2011 - 08/01/2011 KRYSTA HOLE FOR SUBDURAL HEMATOMA 09/24/2015 Right HIP SURGERY 04/03/2010 - 04/02/2011 AV FISTULA REPAIR 01/18/2022 Right Right arm fistula repair TRANSPLANTATION RENAL 09/30/2022 N/A COLONOSCOPY 06/15/2021 TAx8 recall 3 years COLONOSCOPY 06/10/2015 Medical History Medical History Date Comments Dependence on renal dialysis ([facility] V24) 12/23 Family History Medical History Relation Name Comments Depression Brother Hypertension Brother Kidney failure Brother Suicide Attempts Brother Heart disease Father Hypertension Father COPD Mother Coronary artery disease Mother at years old Emphysema Mother Hypertension Mother Colon cancer Neg Hx Colon polyps Neg Hx Relation Name Status Comments Brother Alive Father Maternal Grandfather Maternal Grandmother Mother Sister 1 Alive Sister 2 Sister 2 Social History Tobacco Use Types Packs/Day Years Used Date Smoking Tobacco: Never Smokeless Tobacco: Never Alcohol Use Standard Drinks/Week Comments Yes 0 (1 standard drink = 0.6 oz pur e alcohol) social Comments Unknown Sex and Gender Information Value Date Recorded Sex Assigned at Not on file Legal Sex Female 6:25 PM EST Gender Identity Not on file Sexual Orientation Not on file Obstetrics History Last Filed Vital Signs Vital Sign Reading Time Taken Comments Blood Pressure 155/70 06/15/2023 10:20 AM EDT Pulse 72 06/15/2023 10:20 AM EDT Temperature - - Respiratory Rate - - Oxygen Saturation - - Inhaled Oxygen Concentration - - Weight 65.8 kg (145 lb) 08/20/2024 12:00 PM EDT Height 157.5 cm (5' 2 ) 08/20/2024 12:00 PM EDT Body Mass Index 26.52 08/20/2024 12:00 PM EDT Plan of Treatment Upcoming Encounters Date Type Department Care Team (Late st Contact Info) Description 08/23/2024 9:00 AM EDT Ancillary Procedure [facility] [address] [facility] [address] [place] [address] 08/29/2024 3:00 PM EDT Hospital Encounter [facility] Endoscopy [address] [place] [phone] Ebony Bradley MD 299 [facility] [address] [place] [address] Health Maintenance Due Date Last Done Comments Breast Cancer Screening 1950 Diabetes: Annual Foot Exam 02/17/1960 Diabetes: Annual Retina Eye Exam 02/17/1960 Pneumococcal Vaccine: 50+ Years (1 of 2 - PCV) 1969 Zoster Vaccines (2 of 2) 06/04/2020 04/09/2020 Cholesterol Screening (Lipid Panel) 03/05/2022 Depression Screening 03/05/2022 Falls Risk Assessment 03/05/2022 Hepatitis C Screening 03/05/2022 Medicare Annual Wellness Visit 03/05/2022 Osteoporosis Screening (Bone Density Screening) 03/05/2022 Social Influencers of Health Screening 03/05/2022 Hypertension/CHF/CAD Annual BMP Blood Test 05/03/2023 COVID-19 Vaccine (9 - Pfizer risk 2023- season) 2024 12/13/2023, 01/03/2023, 01/18/2022, Additional history exists Diabetes: Blood Sugar Control Test (HGBA1C) 07/08/2024 DTaP,Tdap,and Td Vaccines (2 - Td or Tdap) 01/23/2031 01/23/2021 Colorectal Cancer Screening: Colonoscopy 07/11/2034 07/11/2024 Hepatitis B Vaccines Completed 11/08/2021, 10/11/2021, 09/03/2021, Additional history exists RSV Immunization Adult Patients Completed 03/21/2023 Influenza Vaccine Completed 12/13/2023, , 12/07/2019, Additional history exists HIB Vaccines Aged Out No longer eligi [...] patient's age to complete this topic Meningococcal B Vaccine Aged Out No l onger eligible based on patient's age to complete this topic RSV Immunization Patients Under 20 months Aged Out No longer eligible based on patient's age to complete this topic Varicella Vaccines Aged Out No longer eligible based on patient's age to complete this topic Procedures Procedure Name Priority Date/Time Associated Diagnosis Comments COLONOSCOPY Routine 07/11/2024 1:49 PM EDT from Last 3 Months Results * COLONOSCOPY (07/11/2024 1:49 PM EDT) Anatomical Region Laterality Modality Endoscopy us Historical Provider GI~PROCEDURE ORDERABLES F inal Result from Last 3 Months Insurance MEDICARE [facility] Advance Directives Documents on File Type Date Recorded Patient Arborist Representative Expl anation Health Care Decision (hx) 09/25/2015 [...] (hx) 09/25/2015 AD KERR DIRECTIVE Care Teams Spring Machine Operator Relationship Specialty Start Date End Date Dyana Lockhart MD [address] [place] [address] PCP - General 09/24/15
[2024-08-20 18:34] LABS: Anion Gap 11 (12-20); Blood Urea Nitrogen 23 mg/dL (9-16); Calcium 11.1 mg/dL (8.4-10.2); Carbon Dioxide 24 mmol/L (22-29); Chloride 105 mmol/L (96-108); Estimated Glomerular Filt Rate > 60; Magnesium 1.7 mg/dL (1.6-2.6); Phosphorus 2.1 mg/dL (2.7-4.5); Potassium 4.2 mmol/L (3.3-5.1); Sodium 136 mmol/L (135-145)
[2024-08-21 10:53] LABS: Tacrolimus Prograf 4.3 mcg/L
[2024-08-23 18:02] LABS: BK Virus DNA QL Urine Detected (Not Detected)
== END 2024-08-20 14:59 | disposition home or self-care (01) ==
LOC: HO.HKASLDS 14:58
PROVIDERS: Visit Provider Internal Medicine Nephrology
DX: Z94.0 Kidney transplant status (principal); B34.8 Other viral infections of unspecified site; I10 Essential (primary) hypertension
CPT/HCPCS: 36415; 80051; 80197; 82310; 82565; 83735; 84100; 84520; 87798

== ENCOUNTER 2024-08-27 15:06 | Outpatient (AMB) | payer MEDICARE, OTHER, SELFPAY ==
--- OUTSIDE RECORDS SUMMARY | 2024-08-27 15:08 | XMS_ITS | Encounter Summary ---
Author Organization [facility] Address [address] [facility] [address] [place] [address] Phone Care Team Providers Care Carbide Grinder Name Role Phone Monica Iniguez PA-C Primary Care Provider + Reason for Visit * Reason Comments Med Refill Encounter Details Date Type Department Care Team (Late st Contact Info) Description 07/11/2022 Refill [facility] [address] [place] [phone] David Ferrera MD Social History Tobacco Use [...] on filedocumented in this encounter Care Teams Carbide Grinder Relationship Specialty Start Date End Date Monica Iniguez PA-C [address] [place] [address] PCP - General Physician Power Plant Technician 07/05/23 documented as of this encounter
--- NOTE | 2024-08-27 15:27 | HO.NEPHOV ---
Vital Signs 08/27/24 15:29 Height 5 ft 2 in Weight 148 lb 2 oz BMI 27.1 BP 140/70 H Blood Pressure Location Lt brachial Position Sitting Pulse 94 Pulse Source Pulse Oximeter Pulse Oximetry (%) 97 Oxygen Delivery Method Room Air Intake Visit Reasons: 3 mo follow up-Conf House Mover Helper Required: No Accompanied by: Self / Same As Patient Allergies codeine Allergy (Verified 08/27/24 15:28) Itching sulfamethoxazole [From Sulfamethoxazole-Trimethoprim] Allergy (Verified 08/27/24 15:28) Swelling trimethoprim [From Sulfamethoxazole-Trimethoprim] Allergy (Verified 08/27/24 15:28) Swelling HPI Comments Details: Daisy is 74 years of age and had 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 She has history of cardiomyopathy and dyslipidemia as well as prior subdural hematoma needing craniotomy. She underwent a donor renal transplant on 09/29/2022. Induction was done using Campath and Solu-Medrol. She was on hemodialysis for 2 years prior to her transplant. Recipient CMV was negative/ EBV positive. Donor was CMV positive, hepatitis C core antibody positive, toxoplasma positive. She used to take Atovaquone until March of 2023. She was on Valcyte which was discontinued on September. She had a PRA of 0. She has no fever, chills, rigors, hematuria, dysuria, pedal edema, chest pain, shortness of breath, tremor, new skin rashes or any joint swellings. She is compliant with her medications. She has no history of any rejections. 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 Her BP has been at goal and her renal function has been stable. She has some back issues for which she has seen Orthopedician and has a follow up appointment with pain management. [facility] Medical History (Updated 08/27/24 @ 22:19 by David Ferrera MD) Disorder of SI (sacroiliac) joint Hypokalemia Hypertension GERD (gastroesophageal reflux disease) Diabetes mellitus Acute kidney injury Surgical History History of angioplasty Family History Father Hypertension Mother Heart disease Hypertension Social History Alcohol intake: current Patient Tobacco Use Status: Never used Tobacco Review of Systems Const All systems reviewed & are unremarkable except as noted in HPI and below Physical Exam Vital Signs: Last Vital Signs Pulse 94 08/27/24 15:29 BP 140/70 H 08/27/24 15:29 Pulse Ox 97 08/27/24 15:29 Oxygen Delivery Method Room Air 08/27/24 15:29 BMI result Body Mass Index 27.1 Const General: comfortable and no acute distress Orientation/consciousness: patient oriented x3 HEENT Head: Yes normocephalic Mouth: Normal oral and palatal mucosa present Eyes EOM: EOMs intact bilaterally Neck Neck: Yes supple Resp Auscultation: clear to auscultation bilaterally Cardio Jugular venous distension: no JVD Rate: regular rate GI Palpation (GI): Soft to palpation Auscultation: normal bowel sounds General: Yes no CVA tenderness Back/Spine/Pelvis Back: no CVA tenderness Skin General skin exam: no rashes or lesions noted Neuro General: patient oriented x3 and moves all extremities Extrem General: Yes no pedal edema Results Reviewed Nephrology Results: Hgb 10.5 g/dl (12.0-16.0) L 05/08/24 WBC 4.8 X10*3/uL (4.8-10.8) 05/08/24 Plt Count 170 X10*3/uL (160-400) 05/08/24 Sodium 136 mmol/L (135-145) 08/20/24 Potassium 4.2 mmol/L (3.3-5.1) 08/20/24 Chloride 105 mmol/L (96-108) 08/20/24 Carbon Dioxide 24 mmol/L (22-29) 08/20/24 BUN 23 mg/dL (9-16) H 08/20/24 Creatinine 0.88 mg/dL (0.5-1.4) 08/20/24 Calcium 11.1 mg/dL (8.4-10.2) H 08/20/24 Phosphorus 2.1 mg/dL (2.7-4.5) L 08/20/24 Assessment & Plan Assessment & Plan (1) Hypertension: Code(s): I10 - Essential (primary) hypertension Category: Medical Qualifiers: Hypertension type: primary hypertension Qualified Code(s): I10 - Essential (primary) hypertension (2) Renal transplant recipient: Code(s): Z94.0 - Kidney transplant status Category: Surgical (3) 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 Her last serum creatinine has been close to 0.8. Her DSA has been negative. Her Trugraf was [place]. Her urine protein creatinine ratio was within normal limits. She had it transplant Doppler which did not show any renal artery stenosis. She is on Envarsus monotherapy. She does not have any side effects from it. I increased the dose to 5 mg daily. She had history of BK virus infection and her levels have been kept low. She had a CMV high-risk donor positivity with the recipient being negative and was maintained on Valcyte 450 mg daily. Her hepatitis-B & C PCR has been negative. Her last CMV and EBV PCR has been negative as well. Blood pressure is very well controlled on the current medication regimen at home. She is off calcium supplements. Her serum calcium is high. I D/Weston her vitamin D and ordered W/U. She may need sensipar. Follow-up lab work was ordered. Follow-up appointment given. Answered all questions Orders: Orders Complete Blood Count Auto Diff 2 Months I10 - Essential (primary) hypertension, Z94.0 - Kidney transplant status Creatinine 2 Months I10 - Essential (primary) hypertension, Z94.0 - Kidney transplant status Electrolytes 2 Months I10 - Essential (primary) hypertension, Z94.0 - Kidney transplant status Calcium 2 Months I10 - Essential (primary) hypertension, Z94.0 - Kidney transplant status Phosphorus 2 Months I10 - Essential (primary) hypertension, Z94.0 - Kidney transplant status Tacrolimus Prograf 2 Months I10 - Essential (primary) hypertension, Z94.0 - Kidney transplant status Aspartate Amino Transferase 2 Months I10 - Essential (primary) hypertension, Z94.0 - Kidney transplant status Protein Creatinine Ratio, Ur 2 Months I10 - Essential (primary) hypertension, Z94.0 - Kidney transplant status Blood Urea Nitrogen 2 Months I10 - Essential (primary) hypertension, Z94.0 - Kidney transplant status Parathyroid Hormone Intact 2 Months I10 - Essential (primary) hypertension, Z94.0 - Kidney transplant status Alanine Aminotransferase 2 Months I10 - Essential (primary) hypertension, Z94.0 - Kidney transplant status Coding Level of Care Code Est Pt Level 4 (95651) Diagnoses Primary hypertension I10 Hypertension type: primary hypertension Renal transplant recipient Z94.0 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
[2024-08-27 15:29] VITALS: BP 140/70; PULSE 94; O2SAT 97; BMI 27.1
== END 2024-08-27 16:09 | disposition home or self-care (01) ==
LOC: HO.HKAS 15:06
PROVIDERS: PCP Physician Assistant; Visit Provider Internal Medicine Nephrology
DX: I10 Essential (primary) hypertension (principal); Z94.0 Kidney transplant status; B34.8 Other viral infections of unspecified site
CPT/HCPCS: 99214

== ENCOUNTER → 2024-08-27 15:06 | Outpatient (BNVA) | payer MEDICARE, OTHER, SELFPAY | PROVIDERS: PCP Physician Assistant; Visit Provider Internal Medicine Nephrology | DX: I10 Essential (primary) hypertension (principal); B34.8 Other viral infections of unspecified site; Z94.0 Kidney transplant status | CPT/HCPCS: 99212 ==

== ENCOUNTER 2024-12-19 11:06 | Outpatient (REF) | payer MEDICARE, OTHER, SELFPAY ==
--- OUTSIDE RECORDS SUMMARY | 2024-12-19 13:25 | XMS_ITS | Encounter Summary ---
Author Organization [facility] [place] [address] Care Team Providers Care Cras Name Role Phone Toñito Sargent MD Primary Care Provider [phone] Reason for Visit * Reason Onset Date Comments rescheduling appt 12/13/2024 Encounter Details Date Type Department Care Team (Late st Contact Info) Description 12/13/2024 Telephone [facility] - [facility] [address] [facility] [address] [place] [phone] Galina Yusuf MD [address] [place] [address] [place] [phone] Social History Tobacco Use Types Packs/Day Years Used Date Smoking Tobacco: Never Smokeless Tobacco: Never Alcohol Use Standard Drinks/Week Comments Yes 0 (1 standard drink = 0.6 oz pur e alcohol) social Interpersonal Safety Answer Date Record ed Physical Abuse 08/29/2024 Verbal Abuse 08/29/2024 Comments Unknown Sex and Gender Information Value Date Recorded Sex Assigned at Not on file Legal Sex Female 6:25 PM EST Gender Identity Not on file Sexual Orientation Not on file documented as of this encounter Progress Notes * Maryann Cannon - 12/13/2024 11:16 AM EDT Left Message for patient to reschedule appt with Dr. Yusuf in September 2024. Patient can be scheduled on 02/14/25 @ 1020am with Dr. Yusuf documented in this encounter Plan of Treatment Upcoming Encounters Date Type Department Care Team (Late st Contact Info) Description 02/14/2025 10:20 AM EST Office Visit [facility] - [address] [facility] [address] [place] [phone] Galina Yusuf MD [address] [place] [address] [address] [place] [address] documented as of this encounter Visit Diagnoses Not on filedocumented in this encounter Care Teams Cras Relationship Specialty Start Date End Date Toñito Sargent MD [address] [place] [address] PCP - General Internal Medicine 08/23/24 documented as of this encounter
--- OUTSIDE RECORDS SUMMARY | 2024-12-19 13:25 | XMS_ITS | Encounter Summary ---
Author Organization [facility] Address [address] [address] [place] [address] Phone Care Team Providers Care Senior Corporate Recruiter Name Role Phone Monica Iniguez PA-C Primary Care Provider + Reason for Visit * Reason Comments Med Refill Encounter Details Date Type Department Care Team (Late st Contact Info) Description 07/11/2022 Refill [facility] [address] [place] [phone] David Ferrera MD Social History Tobacco Use [...] on filedocumented in this encounter Care Teams Senior Corporate Recruiter Relationship Specialty Start Date End Date Monica Iniguez PA-C [address] [place] [phone] PCP - General Physician Health Promotion Officer 07/05/23 documented as of this encounter
--- OUTSIDE RECORDS SUMMARY | 2024-12-19 13:25 | XMS_ITS | Clinical Summary ---
Author Organization [facility], Address [address] [place] [address] Phone Care Team Providers Care Developmental Education Instructor Name Role Phone Monica Iniguez PA-C [...] for muscle spasms 30 capsule 4 Active Active Problems Problem Noted Date Diagnosed Date Cardiomyopathy 01/19/2023 01/19/2023 History of subdural hematoma 01/19/2023 Overview (01/19/2023): s/p [place] hole craniotomy Hyperlipidemia 01/19/2023 01/19/2023 Anemia in [...] Immunization Administration Dates Next Due Hepatitis B 11/08/2021,,09/03/2021,07/12/2021,04/09/2021,11/2020 [...] 58 07/05/2023 11:17 AM EDT Temperature 36.3 C (97.4 F) 10/10/2022 8:57 AM EDT Respiratory Rate 16 04/11/2022 7:58 AM EST [...] Exam (Post-Transplant Patient) 10/05/2022 Influenza Vaccine (#1) 2024 Hepatitis B Vaccine Aged Out 11/08/2021, [...] EDT Unless otherwise specified, test(s) performed at: [facility], [address] [place] [address] RADIOLOGICAL TECHNOLOGIST: Rosendo Long M.D. For any questions, please call customer service at [facility] Resulting Agency Comment Specimen source: Blood David Ferrera MD LAB BLOOD BANK TEST ORDERABLES F inal Result APS ROBYN PVNMA from Last 3 Months or Most Recently Relevant to Health Maintenance Insurance [address] [place] [address] Medicare Care Teams Developmental Education Instructor Relationship Specialty Start Date End Date Monica Iniguez PA-C [address] [place] [phone] PCP - General Physician Public Relations Supervisor 07/05/23
--- OUTSIDE RECORDS SUMMARY | 2024-12-19 13:25 | XMS_ITS | Clinical Summary ---
Author Organization [facility] Address [address] [place] [address] Care Team Providers Care Plate Grainer Name Role Phone Dyana Lockhart MD Primary Care Provider [phone] Social History Tobacco Use Types Packs/Day Years Used Date Smoking Tobacco: Never Assessed Comments Unknown Sex and Gender Information Value Date Recorded Sex Assigned at Female 02/22/2024 7:55 AM EST Legal Sex Female 4:12 PM EST Gender Identity Female 02/22/2024 7:55 AM EST Sexual Orientation Heterosexual (straight) 02/21 7:55 AM EST Plan of Treatment Health Maintenance Due Date Last Done Comments Advance Care Planning 1950 Hepatitis C Virus Screening 1950 DTaP/Tdap/Td Vaccines (1 - Tdap) 1969 Pneumococcal Vaccines 50+ (1 of 2 - PCV) 1969 Hepatitis B Vaccines (1 of 3 - Risk Dialysis 4-dose series) 1970 Mammogram 1990 Colonoscopy 1995 Zoster (Shingles) Vaccine (1 of 2) 02/17/2000 DXA Bone Density (Females,Ag es 65 and older) 2015 Influenza Vaccine 11/01/2024 12/25/2016, , 02/26/2014 COVID-19 Vaccine ( - 2024-2 6 season) 2024 01/18/2022, 09/04/2021, 01/19/2021, Additional history exists RSV Vaccine 60 years and old er and Patients (1 - 1-dose 75+ series) 2025 Medical Devices Implanted Type Area Interior Decorator Device Identifier Shelf Expiration Date Model / Serial / Lot [id number] Lens Iol +24.5 Batool Mod C 13mm 6mm Posterior Chamber 1 Pc - [id number] Implanted:Qty: 1 on 02/22/2024 by Serjio Parada MD at [facility] [place] [employer] [id number] / [id number] / [id number] Lens Iol +23.5 Batool Mod C 13mm 6mm Posterior Chamber 1 Pc - [id number] Implanted:Qty: 1 on 03/14/2024 by Serjio Parada MD at [facility] [place] [employer] [id number] / [id number] / Insurance MEDICARE PART A & B [facility] Care Teams Plate Grainer Relationship Specialty Start Date End Date Dyana Lockhart MD [address] [place] [phone] PCP - General Family Medicine 03/16/23
--- OUTSIDE RECORDS SUMMARY | 2024-12-19 13:25 | XMS_ITS | Encounter Summary ---
Author Organization [facility] Address [address] [address] [facility] [address] [place] [address] Phone Care Team Providers Care Video Intern Name Role Phone Monica Iniguez PA-C Primary Care Provider + Reason for Visit * Reason Comments Med Refill Encounter Details Date Type Department Care Team (Late st Contact Info) Description 06/27/2022 Refill [facility] [address] [place] [phone] David Ferrera MD Social History Tobacco Use [...] on filedocumented in this encounter Care Teams Video Intern Relationship Specialty Start Date End Date Monica Iniguez PA-C [address] [place] [id number] PCP - General Physician Integrated Circuit Design Engineer 07/05/23 documented as of this encounter
--- OUTSIDE RECORDS SUMMARY | 2024-12-19 13:26 | XMS_ITS | Clinical Summary ---
Author Organization [facility] [email or web address] Address [address] [place] [address] Phone Care Team Providers Care Pipe Organ Tuner And Repairer Name Role Phone Toñito Sargent MD Primary Care Provider [phone] Allergies Active Allergy Reactions Criticality Noted Date Comments Codeine 12/16/2020 Sulfamethoxazole-Trimethoprim Angioedema High 2020 Medications aspirin 81 mg EC tablet Take 1 Tablet by mouth daily. Active atovaquone (MEPRON) 750 mg/5 mL suspension Take 10 mL by mouth daily. Active cetirizine (ZyrTEC) 5 mg chewable tablet Take 1 Tablet by mouth. 4 Active cholecalciferol (VITAMIN D-3) 25 mcg (1,000 [...] times a day if needed. 5 Active Active Problems Problem Noted Date Diagnosed [...] recommendations on her hypertension section. 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 This is mainly so we avoid any interactions with transplant medications. She has regularly been following with her animal killer and during those visits her blood pressures [...] to next year's visit Intracranial subdural hematoma ([facility] V24, [facility] V28) 10/08/2021 Iliopsoas bursitis 10/06/2021 Degenerative joint disease involving multiple rahul ints 12/23/2020 Disorder of sacroiliac joint 12/23/2020 Dyslipidemia 12/23/2020 End stage renal disease ([facility] V24, [facility] V2 8) 12/23/2020 Gastroesophageal reflux disease 12/23/2020 Assessment & Plan (07/09/2024 4:48 PM EDT): Controlled with PPI daily, continue as directed Discussed EGD add-on given she is due for colonoscopy, patient declined today. Reviewed return precautions if symptoms persist. Reviewed risks of missed lesion, delay in diagnosis with EGD. Low back pain 12/23/2020 Type 2 diabetes mellitus ([facility] V24, [facility] V 28) 12/23/2020 Secondary hyperparathyroidism of renal origin ([facility] [place] V24) 11/02/2020 Stage 5 chronic kidney disease ([facility] V24, [facility] V28) 11/02/2020 Resolved Problems Problem Noted Date Diagnosed Date Resolved Date Dependence on renal dialysis ([facility] V24) 12/23/2020 07/09/2024 Encounters Date Type Department Care Team Description 12/13/2024 Telephone [facility] - [address] [place] [address] Galina Yusuf MD from Last 3 Months Immunizations Name Administration [...] History Date Comments Dependence on renal dialysis ([facility] V24) 12/23 Diabetes mellitus ([facility] V24, [facility] V28) Hypertension GERD (gastroesophageal reflux disease) Thyroid nodule Family History Medical History Relation Name Comments [...] Sign Reading Time Taken Comments Blood Pressure 178/82 08/29/2024 4:04 PM EDT Pulse 58 08/29/2024 4:04 PM EDT Temperature 36.2 C (97.2 F) 08/29/2024 3:44 PM EDT Respiratory Rate 17 08/29/2024 4:04 PM EDT Oxygen Saturation 100% 08/29/2024 4:04 PM EDT Inhaled Oxygen Concentration - - Weight 67.1 kg (148 lb) 08/23/2024 10:09 AM EDT Height 157.5 cm (5' 2 ) 08/23/2024 10:09 AM EDT Body Mass Index 27.07 08/23/2024 10:09 AM EDT Plan of Treatment Upcoming Encounters Date Type Department Care Team (Late st Contact Info) Description 02/14/2025 10:20 AM EST Office Visit [facility] - [facility] [address] [facility] [address] [place] [phone] Galina Yusuf MD [address] [place] [address] [place] [phone] Health Maintenance Due Date Last Done Comments Breast Cancer Screening 1950 Diabetes: Annual Foot Exam 02/17/1960 Diabetes: Annual Retina Eye Exam 02/17/1960 Zoster Vaccines (2 of 2) 06/04/2020 04/09/2020 Cholesterol Screening (Lipid Panel) 03/05/2022 Hepatitis C Screening 03/05/2022 Medicare Annual Wellness Visit 03/05/2022 Osteoporosis Screening (Bone Density Screening) 03/05/2022 Social Influencers of Health Screening 03/05/2022 Hypertension/CHF/CAD Annual BMP Blood Test 05/03/2023 Depression Screening 04/03/2024 Diabetes: Blood Sugar Control Test (HGBA1C) 07/08/2024 COVID-19 Vaccine (9 - Pfizer risk season) 2024 12/13/2023, 01/03/2023, 01/18/2022, Additional history exists Influenza Vaccine (#1) 2024 , 01/03/2023, 12/07/2019, Additional history exists Falls Risk Assessment 08/29/2025 08/29/2024 DTaP,Tdap,and Td Vaccines (2 - Td or Tdap) 01/23/2031 01/23/2021 Colorectal Cancer Screening: Colonoscopy 08/29/2034 08/29/2024, 07/11/2024 Hepatitis B Vaccines Completed 11/08/2021, 10/11/2021, 09/03/2021, Additional history exists RSV Immunization Adult Patients Completed 03/21/2023 Pneumococcal Vaccine: 50+ Years Completed 07/23/2024 HIB Vaccines Aged Out No longer eligi [...] Priority Date/Time Associated Diagnosis Comments COLONOSCOPY Routine 08/29/2024 3:43 PM EDT History of colon polyps from Last 3 Months or Most Recently Relevant to Health Maintenance Results * COLONOSCOPY Anesthesia - MAC; [facility] ENDOSCOPY (08/29/2024 3:43 PM EDT) Anatomical Region Laterality Modality Other 08/29/2024 2:57 PM EDT Impressions 08/29/2024 3:45 PM EDT - Hemorrhoids found on perianal exam. - One 5 mm polyp in the ascending colon, removed with a hot snare. Resected and retrieved. - One 15 mm polyp in the ascending colon, removed with a hot snare. Complete resection. Polyp tissue not retrieved. Clip (MR conditional) was placed. - Two 4 mm polyps in the transverse colon, removed with a cold snare. Resected and retrieved. - Diverticulosis in the entire examined colon. - Internal hemorrhoids. Recommendation: - Await pathology results. - Repeat colonoscopy in 3 months for surveillance. Narrative 08/29/2024 3:45 PM EDT [facility] GI Patient Name: Daisy Reyes Procedure Date: 08/29/2024 2:57 PM Date of : 1950 Age: 74 Gender: Female Note Status: Finalized Attending MD: Ebony Bradley MD, Procedure Date No Time: 08/29/2024 Procedure: Colonoscopy Indications: High risk colon cancer surveillance: Personal history of multiple (3 or more) adenomas Providers: Ebony Bradley MD Referring MD: Toñito Vanegas MD Medicines: Propofol per Anesthesia Complications: No immediate complications. Estimated Blood Loss: Estimated blood loss: none. Procedure: Pre-Anesthesia Assessment: - ASA Grade Assessment: III - A patient with severe systemic disease. After I obtained informed consent, the scope was passed under direct vision. Throughout the procedure, the patient's blood pressure, pulse, and oxygen saturations were monitored continuously.The Olympus Pediatric Colonoscope was introduced through the anus and advanced to the cecum, identified by appendiceal orifice and ileocecal valve. The colonoscopy was performed with difficulty due to restricted mobility of the colon. Successful completion of the procedure was aided by applying abdominal pressure. The patient tolerated the procedure well. The quality of the bowel preparation was excellent. Findings: Hemorrhoids were found on perianal exam. A 5 mm polyp was found in the ascending colon. The polyp was semi-pedunculated. The polyp was removed with a hot snare. Resection and retrieval were complete. A 15 mm polyp was found in the ascending colon. The polyp was pedunculated. The polyp was removed with a hot snare. Resection was complete, but the polyp tissue was not retrieved. To prevent bleeding after the polypectomy, one hemostatic clip was successfully placed (MR conditional). There was no bleeding during, or at the end, of the procedure. Two sessile polyps were found in the transverse colon. The polyps were 4 mm in size. These polyps were removed with a cold snare. Resection and retrieval were complete. Multiple small and large-mouthed diverticula were found in the entire colon. Internal hemorrhoids were found during retroflexion. The hemorrhoids were Grade I (internal hemorrhoids that do not prolapse). Procedure Code(s): --- Professional --- 12571, Colonoscopy, flexible; with removal of tumor(s), polyp(s), or other lesion(s) by snare technique Diagnosis Code(s): --- Professional --- Z86.010, Personal history of colonic polyps D12.2, Benign neoplasm of ascending colon D12.3, Benign neoplasm of transverse colon (hepatic flexure or splenic flexure) CPT copyright 2020 [employer]. All rights reserved. The codes documented in this report are preliminary and upon data coder operator review may be revised to meet current compliance requirements. Ebony Bradley MD 08/29/2024 3:44:34 PM This report has been signed electronically.Ebony Bradley MD Number of Addenda: 0 Note Initiated On: 08/29/2024 2:57 PM Scope In: Scope Out: Endoscopy Department at [facility] - [address] [place] [phone] Procedure Note Ebony Bradley MD - 08/29/2024 [facility] GI Patient Name: Daisy Reyes Procedure Date: 08/29/2024 2:57 PM Date of : 1950 Age: 74 Gender: Female Note Status: Finalized Attending MD: Ebony Bradley MD, Procedure Date No Time: 08/29/2024 Procedure: Colonoscopy Indications: High risk colon cancer surveillance: Personalhistory of multiple (3 or more) adenomas Providers: Ebony Bradley MD Referring MD: Toñito Vanegas MD Medicines: Propofol per Anesthesia Complications: No immediate complications. Estimated Blood Loss: Estimated blood loss: none. Procedure: Pre-Anesthesia Assessment: - ASA Grade Assessment: III - A patient with severe systemic disease. After I obtained informed consent, the scope was passed under direct vision. Throughout theprocedure, the patient's blood pressure, pulse, and oxygen saturations were monitored continuously.The Olympus Pediatric Colonoscope was introduced through theanus and advanced to the cecum, identified byappendiceal orifice and ileocecal valve. The colonoscopy was performed with difficulty due to restrictedmobility of the colon. Successful completion of theprocedure was aided by applying abdominal pressure. Thepatient tolerated the procedure well. The quality of thebowel preparation was excellent. Findings: Hemorrhoids were found on perianal exam. A 5 mm polyp was found in the ascending colon. The polyp was semi-pedunculated. The polyp was removed with a hot snare. Resection and retrieval were complete. A 15 mm polyp was found in the ascending colon. The polyp was pedunculated. The polyp was removed witha hot snare. Resection was complete, but the polyp tissue was not retrieved. To prevent bleeding after the polypectomy, one hemostatic clip wassuccessfully placed (MR conditional). There was no bleedingduring, or at the end, of the procedure. Two sessile polyps were found in the transversecolon. The polyps were 4 mm in size. These polyps were removed with a cold snare. Resection and retrieval were complete. Multiple small and large-mouthed diverticula were found in the entire colon. Internal hemorrhoids were found duringretroflexion. The hemorrhoids were Grade I (internal hemorrhoids that do not prolapse). Procedure Code(s): --- Professional --- 46805, Colonoscopy, flexible; with removal of tumor(s), polyp(s), or other lesion(s) by snare technique Diagnosis Code(s): --- Professional --- Z86.010, Personal history of colonic polyps D12.2, Benign neoplasm of ascending colon D12.3, Benign neoplasm of transverse colon (hepatic flexure or splenic flexure) CPT copyright 2020 [employer]. All rights reserved. The codes documented in this report are preliminary and upon data coder operator reviewmay be revised to meet current compliance requirements. Ebony Bradley MD 08/29/2024 3:44:34 PM This report has been signed electronically.Ebony Bradley MD Number of Addenda: 0 Note Initiated On: 08/29/2024 2:57 PM Scope In: Scope Out: Endoscopy Department at [facility] - [address] [place] [phone] IMPRESSION: - Hemorrhoids found on perianal exam. - One 5 mm polyp in the ascending colon, removedwith a hot snare. Resected and retrieved. - One 15 mm polyp in the ascending colon, removedwith a hot snare. Complete resection. Polyp tissue not retrieved. Clip (MR conditional) was placed. - Two 4 mm polyps in the transverse colon, removed with a cold snare. Resected and retrieved. - Diverticulosis in the entire examined colon. - Internal hemorrhoids. Recommendation: - Await pathology results. - Repeat colonoscopy in 3 months forsurveillance. Ebony Bradley MD GI~PROCEDURE ORDERABLES Final Result from Last 3 Months or Most Recently Relevant to Health Maintenance Insurance MEDICARE [facility] Advance Directives Documents on File Type Date Recorded Patient Bulb Packer Expl anation Health Care Decision (hx) 09/25/2015 [...] (hx) 09/25/2015 AD KERR DIRECTIVE Care Teams Pipe Organ Tuner And Repairer Relationship Specialty Start Date End Date Toñito Sargent MD [address] [place] [address] PCP - General Internal Medicine 08/23/24
--- OUTSIDE RECORDS SUMMARY | 2024-12-19 13:26 | XMS_ITS ---
Author Name [facility] Organization Unknown Problems Problem Status Onset Date Problem Type Date of Resoluti on Source Nuclear sclerotic cataract of left eye active EncounterDiagnosisAct CCT Encounters Encounter Type Encounter Reason Primary Diagnosis Location Date Ambulatory Age-related nuclear cataract, right eye Age-related nuclear cataract, right eye [employer] 03/14/2024 Ambulatory Age-related nuclear cataract, left eye Age-related nuclear cataract, left eye [employer] 02/22/2024 Ambulatory Unspecified complication of kidney transplant Unspecified complication of kidney transplant [employer] 04/07/2023 Care Team Organization Name Specialty Phone Email Start Date End Da te [facility] 04/23/[address] [facility] 04/23/2023 06/19/2024 [employer] Dyana Lockhart Primary Care 04/07/[address]2320[address] [employer] [address] [facility]
[2024-12-19 14:29] LABS: Protein/Creatinine Ratio, Ur 0.10 (<0.2); Total Protein Urine Random 28 mg/dL (<12)
== END 2024-12-19 11:07 | disposition home or self-care (01) ==
LOC: HO.HKASLDS 11:06
PROVIDERS: Visit Provider Internal Medicine Nephrology
DX: I10 Essential (primary) hypertension (principal); Z97.0 Presence of artificial eye
CPT/HCPCS: 82570; 84156

== ENCOUNTER 2024-12-23 11:24 | Outpatient (REF) | payer MEDICARE, OTHER, SELFPAY ==
--- OUTSIDE RECORDS SUMMARY | 2024-10-28 10:56 | XMS_ITS ---
Author Organization [facility] Address [address] [place], [place] [id number] Care Team Providers Care Home Appraiser Name Role Phone DEZ OREILLY Primary Care Provider MARLA RICHARDS Unavailable [phone] REASON FOR VISIT rescheduled appt Encounters Encounter Location Date Provider Diagnosis [address] [address] 10/28/2024 DEZ OREILLY PLAN OF TREATMENT Next Appt Details Provider Name:DEZ Sparks, 05/27/2025 11:00:00 AM, [address] [place] [address], [phone],
--- OUTSIDE RECORDS SUMMARY | 2024-11-01 04:45 | XMS_ITS ---
Author Organization [facility] Address [facility] [place], [place] [id number] Care Team Providers Care Rolling Chair Pusher Name Role Phone DEZ OREILLY Primary Care Provider MARLA RICHARDS Unavailable [phone] REASON FOR VISIT 27/6mo f/u Encounters Encounter Location Date Provider Diagnosis [address] [address] 11/01/2024 DEZ OREILLY PLAN OF TREATMENT Next Appt Details Provider Name:DEZ Sparks, 05/27/2025 11:00:00 AM, [address] [place], [address],
--- OUTSIDE RECORDS SUMMARY | 2024-12-06 05:46 | XMS_ITS ---
Author Organization [facility] Address [facility] [place], [place] [id number] Care Team Providers Care Oracle Specialist Name Role Phone DEZ OREILLY Primary Care Provider MARLA RICHARDS Unavailable [phone] REASON FOR VISIT r/s f/u today to a VV Encounters Encounter Location Date Provider Diagnosis [address] [address] 12/06/2024 DEZ OREILLY PLAN OF TREATMENT Next Appt Details Provider Name:DEZ Sparks, 05/27/2025 11:00:00 AM, [address] [place], [address],
--- OUTSIDE RECORDS SUMMARY | 2024-12-06 11:15 | XMS_ITS ---
Author Organization [facility] Address [address] [place], [place] [address] Care Team Providers Care Hydrogen Plant Operations Manager Name Role Phone DEZ OREILLY Primary Care Provider [phone] MARLA RICHARDS Unavailable [phone] ALLERGIES Allergen (clinical drug ingredient) Drug/Non Drug Allergy documented on EMR Reaction Allergy Type Onset Date Status sulfamethoxazole / trimethoprim Bactrim tongue swelling Drug Allergy Active codeine Codeine itching Drug Allergy Active REASON FOR VISIT 27/DOXIMITY/[phone]/6mo f/u MEDICATIONS Medication SIG (Take, Route, Frequency, Duration) Notes Start Date End Date Status Losartan Potassium 50 MG 1 tab(s) Orally two times a day Active Carvedilol 6.25 MG 1 tab Orally two marjorie es a day Active Doxazosin Mesylate 4 MG 1 tablet Orally nightly Active Aspirin 81 81 MG 1 tablet Orally Once a day Active Vitamin D3 50 MCG (1999) 1 capsule or ally once a day Active Folic Acid 400 MCG 1 tablet Orally Once a day Active Magnesium Oxide 400 MG 1 tablet Orally bid Active Keppra 750 MG 1 tab(s) Orally 2 ti mes a day Active tiZANidine HCl 4 MG TAKE 1 TABLET BY TWICE A DAY Active Omeprazole 20 MG TAKE 1 CAPSULE BY H DAILY 0.5 TO 1 HOUR BEFORE BREAKFAST Active Tacrolimus ER 1 MG 4 tabs Orally once daily Active Atorvastatin Calcium 40 MG 1 tablet Oral ly Once a day Active PROBLEMS Problem Type ICD Code Onset Dates Problem Status W/U Status Risk SNOMED Code Notes Problem Other hyperlipidemia (E78.49) Active confirmed [id number] Encounters Encounter Location Date Provider Diagnosis 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 ASSESSMENTS Encounter Date Diagnosis Assessment Notes Treatment Notes Treatment Clinical Notes Section Notes 12/06/2024 Type 2 diabetes mellitus without complication (ICD-10 - E11.9) she will get me a copy of all of her labs 12/06/2024 Acute bilateral low back pain without sciatica (ICD-10 - M54.50) visit last ed from to 40 ..i have agrreed to track down her mri xrays and orho /pain mgmt eval and give her a call in a week or so with a treatment plan 12/06/2024 Essential hypertension (ICD-10 - I10) 12/06/2024 Seizure disorder (ICD-10 - G40.909) 12/06/2024 Other hyperlipidemia (ICD-10 - E78.49) 12/06/2024 -donor kidney transplant recipient (ICD-10 - Z94.0) PLAN OF TREATMENT Medication Medication Name Sig Start Date Stop Date Notes Losartan Potassium 50 MG 1 tab(s) Orally two times a day Carvedilol 6.25 MG 1 tab Orally two times a day Doxazosin Mesylate 4 MG 1 tablet Orally nightly Aspirin 81 81 MG 1 tablet Orally Once a day Keppra 750 MG 1 tab(s) Orally 2 times a day tiZANidine HCl 4 MG TAKE 1 TABLET BY PETER TH TWICE A DAY Omeprazole 20 MG TAKE 1 CAPSULE BY MO [facility] DAILY 0.5 TO 1 HOUR BEFORE BREAKFAST Tacrolimus ER 1 MG 4 tabs Orally once daily Atorvastatin Calcium 40 MG 1 tablet Orally Once a day Treatment Notes Assessment Notes Type 2 diabetes mellitus wit hout complication she will get me a copy of all of her lab s Acute bilateral low back job n without sciatica visit last ed from to 40 ..i have agrreed to track down her mri xrays and orho /pain mgmt eval and give her a call in a week or so with a treatment plan Next Appt Details Follow Up: 6 Months, Reason: Provider Name:DEZ Sparks, 05/27/2025 11:00:00 AM, [address] [place], [address], History and Physical Notes * HPI (History of Present Illness) Category Sub-Category Detail Notes Category Not es General This visit was conducted remotely while pt was at home and i am in my office using audio/visual modality doximitywith pt's permisison given COVID-19 pandemic..thus is a f/u for her typemII DM..she has ronal taking her meds as directed....her main concern is low back pain..she is having chronic pain...she hsa seen two orthopedists and has been followed by pain mgmt and done shots
--- OUTSIDE RECORDS SUMMARY | 2024-12-13 12:57 | XMS_ITS ---
Author Organization [facility] Address [facility] [place], [place] [id number] Care Team Providers Care Credit Union Field Examiner Name Role Phone DEZ OREILLY Primary Care Provider MARLA RICHARDS Unavailable [phone] Encounters Encounter Location Date Provider Diagnosis [address] [address] 12/13/2024 DEZ OREILLY PLAN OF TREATMENT Next Appt Details Provider Name:DEZ Sparks, 05/27/2025 11:00:00 AM, [address] [place] [address], [phone],
--- OUTSIDE RECORDS SUMMARY | 2024-12-23 14:07 | XMS_ITS | Clinical Summary ---
Author Organization [facility] Address [address] [place] [address] Care Team Providers Care Child And Family Services Worker Name Role Phone Dyana Lockhart MD Primary Care Provider [phone] Social History Tobacco Use Types Packs/Day Years [...] series) 2025 Medical Devices Implanted Type Area High [employer] Band Teacher Device Identifier Shelf Expiration Date Model / Serial / Lot [id number] Lens Iol +24.5 Batool Mod C 13mm 6mm Posterior Chamber 1 Pc - [id number] Implanted:Qty: 1 on 02/22/2024 by Serjio Parada MD at [facility] [employer] HE[employer] CAR [id number] / [id number] / [id number] Lens Iol +23.5 Batool Mod C 13mm 6mm Posterior Chamber 1 Pc - [id number] Implanted:Qty: 1 on 03/14/2024 by Serjio Parada MD at [facility] [employer] HEALTH CAR [id number] / [id number] / Insurance MEDICARE PART A & B [facility] MEDICARE Care Teams Child And Family Services Worker Relationship Specialty Start Date End Date Dyana Lockhart MD [address] [place] [id number] PCP - General Family Medicine 03/16/23
--- OUTSIDE RECORDS SUMMARY | 2024-12-23 14:07 | XMS_ITS | Clinical Summary ---
Author Organization [facility] [employer] Address [address] [facility] [place] [address] Phone Care Team Providers Care Funeral Home Attendant Name Role Phone Toñito Sargent MD Primary Care Provider [phone] Allergies Active Allergy Reactions Criticality Noted Date [...] recommendations on her hypertension section. Non-ST elevation [place] (NSTEMI) (CMS/HCC V24, CMS/H CC V28) 03/24/2022 Overview (03/11/2024): - I met her in consultation in the hospital in November into early December 2021- she presented with hypoxic respiratory failure ultimately secondary to COVID-19 pneumonia - In the midst of all this, she had high-sensitivity troponins checked and trended and there was an acute rise going from 248 [id number] down to 832 with flat CK but [...] to avoid confusion, I believe that the drag out worker should be the sole person in charge of blood pressure medication alterations versus her primary care. This is mainly so we avoid any interactions with transplant medications. She has regularly been following with her drag out worker and during those visits her blood pressures [...] to next year's visit Intracranial subdural hematoma ([facility] V24, [facility] V28) 10/08/2021 Iliopsoas bursitis 10/06/2021 Degenerative joint disease involving multiple rahul ints 12/23/2020 Disorder of sacroiliac joint 12/23/2020 Dyslipidemia 12/23/2020 End stage renal disease ([facility] V24, [facility] V2 8) 12/23/2020 Gastroesophageal reflux disease 12/23/2020 Assessment & Plan (07/09/2024 4:48 PM EDT): Controlled with PPI daily, continue as directed Discussed EGD add-on given she is due for colonoscopy, patient declined today. Reviewed return precautions if symptoms persist. Reviewed risks of missed lesion, delay in diagnosis with EGD. Low back pain 12/23/2020 Type 2 diabetes mellitus ([facility] V24, [facility] V 28) 12/23/2020 Secondary hyperparathyroidism of renal origin ([facility] V24) 11/02/2020 Stage 5 chronic kidney disease ([facility] V24, [facility] V28) 11/02/2020 Resolved Problems Problem Noted Date Diagnosed Date Resolved Date Dependence on renal dialysis ([facility] V24) 12/23/2020 07/09/2024 Encounters Date Type Department Care Team Description 12/13/2024 Telephone [facility] - [address] [place] [address] Galina Yusuf MD from Last [...] History Date Comments Dependence on renal dialysis ([facility] V24) 12/23 Diabetes mellitus ([facility] V24, [facility] V28) Hypertension GERD [...] Description 02/14/2025 10:20 AM EST Office Visit [facility] - [facility] [address] [facility] [address] [place] [phone] Galina Yusuf MD [address] [place] [address] [place] [phone] Health Maintenance Due Date Last Done Comments [...] Maintenance Results * COLONOSCOPY Anesthesia - MAC; [facility] ENDOSCOPY (08/29/2024 3:43 PM EDT) Anatomical Region [...] for surveillance. Narrative 08/29/2024 3:45 PM EDT [facility] GI Patient Name: Daisy Reyes Procedure [...] not prolapse). Procedure Code(s): --- Professional --- 01861, Colonoscopy, flexible; with removal of tumor(s), polyp(s), or other lesion(s) by snare technique Diagnosis Code(s): --- Professional --- Z86.010, Personal history of colonic polyps D12.2, Benign neoplasm of ascending colon D12.3, Benign neoplasm of transverse colon (hepatic flexure or splenic flexure) CPT copyright 2020 [employer]. All rights reserved. The codes documented in this report are preliminary and upon hospital coder review may be revised to meet current compliance requirements. Ebony Bradley MD 08/29/2024 3:44:34 PM This report has been signed electronically.Ebony Bradley MD Number of Addenda: 0 Note Initiated On: 08/29/2024 2:57 PM Scope In: Scope Out: Endoscopy Department at [facility] - [address] [place] [phone] Procedure Note Ebony Bradley MD - 08/29/2024 [facility] GI Patient Name: Daisy Reyes Procedure [...] not prolapse). Procedure Code(s): --- Professional --- 76339, Colonoscopy, flexible; with removal of tumor(s), polyp(s), or other lesion(s) by snare technique Diagnosis Code(s): --- Professional --- Z86.010, Personal history of colonic polyps D12.2, Benign neoplasm of ascending colon D12.3, Benign neoplasm of transverse colon (hepatic flexure or splenic flexure) CPT copyright 2020 [employer]. All rights reserved. The codes documented in this report are preliminary and upon hospital coder reviewmay be revised to meet current compliance requirements. Ebnoy Bradley MD 08/29/2024 3:44:34 PM This report has been signed electronically.Ebony Bradley MD Number of Addenda: 0 Note Initiated On: 08/29/2024 2:57 PM Scope In: Scope Out: Endoscopy Department at [facility] - [address] [place] [phone] IMPRESSION: - Hemorrhoids found on perianal exam. [...] Recently Relevant to Health Maintenance Insurance MEDICARE [facility] Advance Directives Documents on File Type Date Recorded Patient Painting Department Supervisor Expl anation Health Care Decision (hx) 09/25/2015 [...] (hx) 09/25/2015 AD KERR DIRECTIVE Care Teams Funeral Home Attendant Relationship Specialty Start Date End Date Toñito Sargent MD [address] [place] [address] PCP - General Internal Medicine 08/23/24
--- OUTSIDE RECORDS SUMMARY | 2024-12-23 14:07 | XMS_ITS | Encounter Summary ---
Author Organization [facility] [place] [address] Care Team Providers Care Offshore Wind Turbine Technician Name Role Phone Toñito Sargent MD Primary Care Provider [phone] Reason for Visit * Reason Onset Date Comments rescheduling appt 12/13/2024 Encounter Details Date Type Department Care Team (Late st Contact Info) Description 12/13/2024 Telephone [facility] - [facility] [address] [facility] [address] [place] [phone] Galina Yusuf MD [address] [place] [address] [place] [phone] Social History Tobacco Use Types Packs/Day Years [...] Description 02/14/2025 10:20 AM EST Office Visit [facility] - [address] [facility] [address] [place] [phone] Galina Yusuf MD [address] [place] [address] [address] [place] [address] documented as of this encounter Visit Diagnoses Not on filedocumented in this encounter Care Teams Offshore Wind Turbine Technician Relationship Specialty Start Date End Date Toñito Sargent MD [address] [place] [address] PCP - General Internal Medicine 08/23/24 documented as of this encounter
--- OUTSIDE RECORDS SUMMARY | 2024-12-23 14:07 | XMS_ITS | Encounter Summary ---
Author Organization [facility] Address [address] [facility] [address] [place] [address] Phone Care Team Providers Care Chemical Test Engineer Name Role Phone Monica Iniguez PA-C Primary Care Provider + Reason for Visit * Reason Comments Med Refill Encounter Details Date Type Department Care Team (Late st Contact Info) Description 07/11/2022 Refill [facility] [address] [place] [phone] David Ferrera MD Social History Tobacco Use [...] on filedocumented in this encounter Care Teams Chemical Test Engineer Relationship Specialty Start Date End Date Monica Iniguez PA-C [address] [place] [id number] PCP - General Physician Weigher Alloy 07/05/23 documented as of this encounter
--- OUTSIDE RECORDS SUMMARY | 2024-12-23 14:07 | XMS_ITS | Encounter Summary ---
Author Organization [facility] Address [address] [facility] [address] [place] [address] Phone Care Team Providers Care Strategy Associate Name Role Phone Monica Iniguez PA-C Primary Care Provider + Reason for Visit * Reason Comments Med Refill Encounter Details Date Type Department Care Team (Late st Contact Info) Description 06/27/2022 Refill [facility] [address] [place] [phone] David Ferrera MD Social History Tobacco Use [...] on filedocumented in this encounter Care Teams Strategy Associate Relationship Specialty Start Date End Date Monica Iniguez PA-C [address] [place] [id number] PCP - General Physician Adjunct Faculty Mathematics Department 07/05/23 documented as of this encounter
--- OUTSIDE RECORDS SUMMARY | 2024-12-23 14:07 | XMS_ITS | Clinical Summary ---
Author Organization [facility], Address [address] [place] [address] Phone Care Team Providers Care Sales And Service Associate Name Role Phone Monica Iniguez PA-C [...] of subdural hematoma 01/19/2023 Overview (01/19/2023): s/p [place] hole craniotomy Hyperlipidemia 01/19/2023 01/19/2023 Anemia in [...] EDT Unless otherwise specified, test(s) performed at: [facility], [address] [place] [address] EAR FLAP BINDER: Rosendo Long M.D. For any questions, please call customer service at FREQUENCY:QUARTERLY Resulting Agency Comment Specimen source: Blood David Ferrera MD LAB BLOOD BANK TEST ORDERABLES F inal Result APS ROBYN PVNMA from Last 3 Months or Most Recently Relevant to Health Maintenance Insurance [address] [place] [address] Medicare Care Teams Sales And Service Associate Relationship Specialty Start Date End Date Monica Iniguez PA-C [address] [place] [phone] PCP - General Physician Pbx Installer 07/05/23
--- OUTSIDE RECORDS SUMMARY | 2024-12-23 14:08 | XMS_ITS | Patient Health Record ---
Author Organization [facility] Address [facility] [place], [place] [id number] Care Team Providers Care Maintenance Person Name Role Phone DEZ OREILLY Primary Care Provider [phone] MARLA RICHARDS Unavailable [phone] [facility], NURSING Unavailable [phone] KATTY GLASER Unavailable [phone] ALLERGIES Allergen (clinical drug ingredient) Drug/Non Drug Allergy documented on EMR Reaction Allergy Type Onset Date Status sulfamethoxazole / trimethoprim Bactrim tongue swelling Drug Allergy Active codeine Codeine itching Drug Allergy Active REASON FOR REFERRAL Reason (2)back pain (, 04/30/24 W appt Referral Organization [facility] Referring Provider First Name DEZ Referring Provider Last Name AFIA Referring Provider Speciality Internal M edicine Referred Provider [facility] Referred Provider Specialty Physical The rapist General Notes Cristin ORR [place] 03:15:01 PM > back pain, Cristin ORR [place] 04/30/2024 03:40:06 PM > referral faxed with recent note, Jeaneth ORR Call Center 07/15/2024 02:20:59 PM >Pt asking for PSS referral to be sent to [facility], she does not want to go to [facility]., see message started., Zulema ORR Referrals 07/16/2024 02:27:51 PM > noted, medical referral and notes have been faxed to [facility] at [phone], Zulema ORR Referrals 10/09/2024 11:09:03 AM > per ale correspondenced from [facility]. the patient was seen on 09/05/24 Referral Priority Routine Reason (06/25/24 W appt) Tri caleb GI Referral Organization [facility] Referring Provider First Name MARLA Referring Provider Last Name RICHARDS Referring Provider Speciality Nurse Prac titioner Referred Provider Specialty Gastroentero logy General Notes Zulema ORR Referrals 06/25/2024 02:51:43 PM > reqest for last ov note/demo/med and allergy list received from [facility], fax: [phone], medical referral and notes have been faxed to [facility] at [phone] Referral Priority Routine Reason please call and cons ult dr valdes at [facility] for dx hip pain ??redo THR....appt has to be with dr bravo so ok to [facility] Referral [facility] Referring Provider First Name DEZ Referring Provider Last Name OREILLY Referring Provider Speciality Internal M edicine General Notes Cristin ORR JOSIE 02:40:21 PM > please call and consult dr valdes at [facility] for dx hip pain ??redo THR....appt has to be with dr bravo so ok to [facility] Referral Priority Routine MEDICATIONS Medication SIG (Take, Route, Frequency, Duration) Notes Start Date End Date Status Folic Acid 400 MCG 1 tablet Orally Once a day Active Losartan Potassium 50 MG 1 tab(s) Orally two times a day Active Carvedilol 6.25 MG 1 tab Orally two marjorie es a day Active Doxazosin Mesylate 4 MG 1 tablet Orally nightly Active Tacrolimus ER 1 MG 4 tabs Orally once daily Active Aspirin 81 81 MG 1 tablet Orally Once a day Active Magnesium Oxide 400 MG 1 tablet Orally bid Active Keppra 750 MG 1 tab(s) Orally 2 ti mes a day Active Atorvastatin Calcium 40 MG 1 tablet Oral ly Once a day Active tiZANidine HCl 4 MG TAKE 1 TABLET BY TWICE A DAY for 30 Active Omeprazole 20 MG TAKE 1 CAPSULE BY DAILY 0.5 TO 1 HOUR BEFORE BREAKFAST Active Vitamin D3 50 MCG (1999) 1 capsule or ally once a day Active IMMUNIZATIONS Vaccine Route Administration Date Status Comme nts FLU- FLUVIRIN, PRE-FILLED SYRINGE 0.5 ml IM Intramuscular 02/26/2014 Administered Fluad Dont use IM Intramuscular 03/02/2018 Administered Fluad Dont use IM Intramuscular 03/02/2018 Administered Fluad Dont use IM Intramuscular 01/17/2019 Administered Se Antuit. Influenza Unknown 02/05/2010 Administered Influenza Unknown 12/22/2010 Administered Influenza Unknown 2012 Administered Influenza Unknown 02/02/2015 Administered recieved at pharm Influenza, Fluvirin multi dose IM Intramuscular 12/25/2016 Administered Pneumococcal, PPV 23 IM Intramuscular 05/03/2017 Administered Pneumococcal,Prevn ar 13, PEDS STATE SUPPLIED IM Intramuscular 04/16/2015 Administered Zostavax (Shingles) Unknown 10/27/2011 Administered DO NOT USE Influenza Unknown 02/18/2005 Administered Influenza, Fluzone, High-Dose, 65+ IM Intramuscular 02/22/2016 Administered SOCIAL HISTORY Tobacco Use: Social History Observation Description Date Details (start date - stop date) Never Smoker NA - NA Sex Assigned At : Social History Observation Description Sex Assigned At Unknown Smoking Question Answer Notes Are you a: never smoker Alcohol Screen Question Answer Notes Did you have a drink contain ing alcohol in the past year? Yes How often did you have a dri nk containing alcohol in the past year? Two to four times a month (2 points) How many drinks did you have on a tpical day when you were drinking in the past year? 1 or 2 (0 points) How often did you have six o r more drinks on one occassion in the past year? Never (0 points) Points 2 Interpretation Negative Section Notes: never smoked never smoked PROBLEMS Problem Type ICD Code Onset Dates Problem Status W/U Status Risk SNOMED Code Notes Problem Anxiety disorder NOS (300.00) Active confirmed Anxiety disorde r (128355080) Problem osteoarthritis (715.90) Active confirmed Osteoarthritis (367140135) Problem Essential hypertension (I10) Active confirmed Essential hypertension (00248514) Problem Vitamin D deficiency (E55.9) Active confirmed 65789535 Problem Nausea (R11.0) Active confirmed 5232572 07 Problem Multinodular goiter (E04.2) Active confirmed 136107380 Problem Abnormal mammogram (R92.8) Active confirmed 698455454 Problem 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.29) Active confirmed 14336869 Problem End stage renal disease (N18.6) Active confirmed End stage re nal disease (68499140) Problem Proteinuria, unspecified (R80.9) Active confirmed 83209028 Problem Seizure disorder (G40.909) Active confirmed 563366703 Problem Gastroesophageal reflux disease without esophagitis (K21.9) Active confirmed 943620836 Problem Type 2 diabetes mellitus without complication (E11.9) Active confirmed Type II diabetes mellitus without complication (013358633) Problem Psychophysiological insomnia (F51.04) Active confirmed 126518075 Problem Aortic stenosis, moderate (I35.0) Active confirmed 640314541 Problem PTSD (post-traumatic stress disorder) (F43.10) Active confirmed 04547195 Problem NSTEMI (non-ST elevated myocardial infarction) (I21.4) Active confirmed Acute no n-ST segment elevation myocardial infarction (645161631) Problem Non-STEMI (non-ST elevated myocardial infarction) (I21.4) Active confirmed 35432316 Problem Otalgia, right (H92.01) Active confirmed 32863873 Problem Primary hypertension (I10) Active confirmed 01645292 Problem Pure hypercholesterolemia (E78.00) Active confirmed 152123871 Problem Pure hypercholesterolemia, unspecified (E78.00) Active confirmed Pure hypercholesterolemia (295218324) Problem Auditory hallucination (R44.0) Active confirmed 37259781 Problem Cardiomyopathy, unspecified type (I42.9) Active confirmed 25967460 Problem Secondary hyperparathyroidism (of renal origin) (N25.81) Active confirmed 66769561 Problem Other hyperlipidemia (E78.49) Active confirmed 95340177 Problem Low back pain, unspecified (M54.50) Active confirmed 366663092 Problem Chronic kidney disease due to diabetes mellitus (E11.22) Active confirmed 854185383 Problem -donor kidne y transplant recipient (Z94.0) Active confirmed 537425992 VITAL SIGNS Blood pressure diastolic 68 mm Hg 04/30/2024 Height 61.5 in 04/30/2024 Blood pressure systolic 13- mm Hg 04/30/2024 Weight 152.2 lbs 04/30/2024 BMI 28.29 kg/m2 04/30/2024 Encounters Encounter Location Date Provider Diagnosis [place] [address] [address] 02/19/2024 [place] [id number] 02/21/2024 MARLA RICHARDS Pre-op evaluation Z0 1.818 ; Aortic stenosis, moderate I35.0 ; Cardiomyopathy, unspecified type I42.9 ; -donor kidney transplant recipient Z94.0 ; White coat syndrome with hypertension I10 ; Vitamin D deficiency E55.9 and Seizure disorder G40.909 [place] [id number] 02/21/[address] 03/11/2024 N[place] [id number] 03/11/2024 KATTY GLASER [place] [id number] 04/06/2024 [place] [id number] 04/30/2024 DARREN ONEILL Medicare annual well ness visit, subsequent Z00.00 [place] [id number] 04/30/2024 [facility] Gastroesophageal ref lux disease without esophagitis K21.9 ; Type 2 diabetes mellitus without complication E11.9 ; Essential hypertension I10 ; Seizure disorder G40.909 ; Pure hypercholesterolemia E78.00 ; End stage renal disease N18.6 ; -donor kidney transplant recipient Z94.0 and Vitamin D deficiency E55.[address] [address] 04/30/2024 DE[place] [id number] 05/27/2024 [facility] Encounter for screen ing mammogram for malignant neoplasm of breast Z12.[address] [address] 06/17/2024 [place] [id number] 07/15/2024 [facility] [address] [place] [address] 08/23/[address] [address] 08/28/[address] [address] 09/02/[address] [address] 10/28/[address] [address] 11/01/[address] [address] 12/06/[address] [address] 12/06/2024 [facility] Type 2 diabetes rylee itus without complication E11.9 ; Acute bilateral low back pain without sciatica M54.50 ; Essential hypertension I10 ; Seizure disorder G40.909 ; Other hyperlipidemia E78.49 and -donor kidney transplant recipient Z94.[address] [address] 12/13/2024 [facility] Encounter Date Diagnosis Assessment Notes Treatment Notes Treatment Clinical Notes Section Notes 12/06/2024 Acute bilateral low back pain without sciatica (ICD-10 - M54.50) visit last ed from 2;15 to 3;40 ..i have agrreed to track down her mri xrays and orho /pain mgmt eval and give her a call in a week or so with a treatment plan 12/06/2024 Type 2 diabetes mellitus without complication (ICD-10 - E11.9) she will get me a copy of all of her labs 05/27/2024 Encounter for screening mammogram for malignant neoplasm of breast (ICD-10 - Z12.31) 04/30/2024 Type 2 diabetes mellitus without complication (ICD-10 - E11.9) slip for labs..diet and exercise..slip for labs given tp pt 04/30/2024 Gastroesophageal reflux disease without esophagitis (ICD-10 - K21.9) rec contined avoidance of spicy foods..wt loss..no nsaids..will rx PPI for 2 months..call me INB 1-2 weeks 04/30/2024 Medicare annual wellness visit, subsequent (ICD-10 - Z00.00) AWV form reviewed with pt 02/21/2024 Aortic stenosis, moderate (ICD-10 - I35.0) Asymptomatic 02/21/2024 Pre-op evaluation (ICD-10 - Z01.818) According to this exam patient is at acceptable risk for this low risk surgery given age and comorbidities. No apparent contraindications to surgery. According to AHA/ACC guidelines no further cardiac testing is necessary for risk stratification. This exam is valid for 30 days. 02/21/2024 Cardiomyopathy, unspecified type (ICD-10 - I42.9) Asymptomatic, follows with cardiology 04/30/2024 Essential hypertensi on (ICD-10 - I10) rec low salt diet and exercise and wt loss.. 12/06/2024 Essential hypertensi on (ICD-10 - I10) 04/30/2024 Seizure disorder (ICD-10 - G40.909) cont rx..call if issues 12/06/2024 Seizure disorder (ICD-10 - G40.909) 02/21/2024 -donor kidne y transplant recipient (ICD-10 - Z94.0) 04/30/2024 Pure hypercholesterolemia (ICD-10 - E78.00) cont rx..follow labs..low fat diet 02/21/2024 White coat syndrome with hypertension (ICD-10 - I10) BP elevated in office which is usual for her when in any MD office 12/06/2024 Other hyperlipidemia (ICD-10 - E78.49) 12/06/2024 -donor kidne y transplant recipient (ICD-10 - Z94.0) 04/30/2024 End stage renal disease (ICD-10 - N18.6) cont rx and care with renal 02/21/2024 Vitamin D deficiency (ICD-10 - E55.9) 04/30/2024 -donor kidne y transplant recipient (ICD-10 - Z94.0) cont rx and care with renal 02/21/2024 Seizure disorder (ICD-10 - G40.909) No seizures 04/30/2024 Vitamin D deficiency (ICD-10 - E55.9) 04/30/2024 Other refill sent..wi ll refer to [facility] per her request 02/21/2024 Other I am seeing the patient under the supervision of the co-signing physician. The physician was available for consultation at the time of the office visit. PLAN OF TREATMENT Pending Test Test Name Order Date Echocardiogram 02/08/2022 US : ABDOMEN UPPER QUADRANTS 10/16/2020 CBC W/OUT AUTOMATED DIFF 10/19/2020 URINALYSIS WITH REFLEX MICROSCOPIC 10/19 Future Test Test Name Order Date LIPID PROFILE 05/02/2017 TSH WITH REFLEX TO FT4 01/29/2020 LIPID PROFILE 02/09/2021 GLYCOHEMOGLOBIN (HBA1C) 02/09/2021 GLYCOHEMOGLOBIN (HBA1C) 08/13/2021 AST ( SGOT) 08/13/2021 LDL DIRECT 08/13/2021 ALT(DO NOT USE) 08/13/2021 LIPID PROFILE 02/08/2022 HEPATIC FUNCTION PANEL 02/08/2022 Mammogram Diagnostic Left Br east, Perform breast US and/or US guided aspiration or breast biopsy if warranted. 10/06/2022 Mammogram Screening Bilatera l, Perform Breast US and/or US-guided aspiration and/or breast biopsy if warranted 10/16/2023 Hemoglobin [id number] 04/30/2024 CBC With Differential/Platelet-[id number] TSH Rfx on Abnormal to Free [id number] LP+Non-HDL Cholesterol-076000 04/30/2024 Comp. Metabolic Panel [id number] 2024 Next Appt Details Provider Name:DEZ Sparks, 05/27/2025 11:00:00 AM, [address] [place], [address], Insurance Providers Payer Name Payer Address Payer Phone Subscriber Number Group Number Insured Name Patient Relationship to Insured Coverage Start Date Coverage End Date MEDICARE [employer] [address] [place] [address] [id number] MERCEDEZ HOFFMAN Self - patient is the insured [address] [place] [address] [address] [place] [id number] MERCEDEZ HOFFMAN Self - patient is the insured MEDICAL (GENERAL) HISTORY Medical History History ICD Code Hypertension Type II DM Hyperlipidemia gerd colon 2021...due 2026 Thyroid nodules: US 10/2015: right side with one small nodule, left side with four nodules, largest in inferior area measuring 1.6x0.9x1.2 cm advised bx and US follow up ESRD, now s/p renal transpla nt, DDKT (donor hep C core ab, hep C core ab, toxoplasma ab +) Surgical History Surgery Date(Month/Year) renal transplant 09/30/2022 Right arm fistula repair 01/18/2022 hip 2010 Right renee hole drainage of subdural hem atoma. 09/24/2015 trigger finger surgery 07/2011 [facility] as a child Back surgery Hysterectomy - [facility] Hospitalization History Reason Date(Month/Year) [facility]: pneumonia versus asymmetric pulmona ry edema 12/01/21 [facility] ED: partial seizure 06/18/2021 [facility]: Acute renal failure 10/19/2020 [facility]-Right cerebral infarct. 09/28/2015 [facility]-Acute subdural hematoma. 09/24/2015
[2024-12-23 18:04] LABS: MANUAL DIFF FLAG NO
[2024-12-23 18:19] LABS: Hematocrit 34.0 % (37.0-47.0); Hemoglobin 10.9 g/dl (12.0-16.0); Imm Gran Abs Auto 0.01 X10*3/uL (0.00-0.03); Imm Gran Pct Auto 0.2 % (0.0-0.4); Lymphocytes Absolute Auto 1.4 X10*3/uL (1.2-4.9); Mean Corpuscular HGB Conc 32.1 g/dl (31.0-35.0); Mean Corpuscular Hemoglobin 30.0 pg (27.0-33.0); Mean Corpuscular Volume 93.7 fL (80.0-98.0); NRBC Abs Auto 0.000 X10*3/uL (0.0-0.012); NRBC Pct Auto 0.0 /100WBC (0.0-0.2); Platelet Count 166 X10*3/uL (160-400); Red Blood Count 3.63 X10*6/uL (4.20-5.50); White Blood Count 5.3 X10*3/uL (4.8-10.8)
[2024-12-23 18:27] LABS: Alanine Aminotransferase 23 U/L (0-31); Anion Gap 11 (12-20); Aspartate Amino Transferase 29 U/L (5-31); Blood Urea Nitrogen 14 mg/dL (9-16); Calcium 10.7 mg/dL (8.4-10.2); Carbon Dioxide 21 mmol/L (22-29); Chloride 109 mmol/L (96-108); Estimated Glomerular Filt Rate 58; Potassium 4.1 mmol/L (3.3-5.1); Sodium 137 mmol/L (135-145)
[2024-12-23 18:39] LABS: Parathyroid Hormone Intact 142.9 pg/mL (8.7-77.1)
[2024-12-24 05:28] LABS: Tacrolimus Prograf 9.3 mcg/L
== END 2024-12-23 11:25 | disposition home or self-care (01) ==
LOC: HO.HKASLDS 11:24
PROVIDERS: Visit Provider Internal Medicine Nephrology
DX: I10 Essential (primary) hypertension (principal); Z94.0 Kidney transplant status
CPT/HCPCS: 36415; 80051; 80197; 82310; 82565; 83970; 84100; 84450; 84460; 84520; 85025

== ENCOUNTER 2025-03-11 15:22 | Outpatient (REF) | payer MEDICARE, OTHER, SELFPAY ==
--- OUTSIDE RECORDS SUMMARY | 2024-03-15 08:56 | XMS_ITS | Continuity of Care Document ---
Author Organization [facility] Address [address] [place] [address] Phone Care Team Providers Care Datacap Developer Name Role Phone Serjio Parada MD Unavailable Unavailable Allergies, Adverse Reactions, Alerts Substance Reaction Status Criticality codeine Active No Information trimethoprim Active No Information sulfamethoxazole Active No Informat ion Medications Medication Instructions Dosage Effective Dates (start - stop) Status Comments ketorolac 0.5 % eye drops instill 1 drop by ophthalmic route 2 times every day into operative eye begin 3 days prior to surgery - Active prednisolone acetate 1 % eye drops,suspension instill 1 drop by ophthalmic route 2 times every day into operative eye begin 3 days prior to surgery - Active moxifloxacin 0.5 % eye drops instill 1 drop by ophthalmic route 4 times every day into operative eye, begin 3 day prior to surgery - Active Envarsus XR 1 mg tablet,extended release - Active atorvastatin 40 mg tablet - Active zolpidem 10 mg tablet TAKE 1 TABLET BY MOUTH AT BEDTIME NEEDED FOR INSOMNIA - Active Envarsus XR 0.75 mg tablet,extended release - Active doxazosin 4 mg tablet - Acti ve losartan 50 mg tablet - Acti ve tizanidine 4 mg tablet - Act marciano folic acid 400 mcg tablet TAKE 1 TABLET BY MOUTH EVERY DAY - Active levetiracetam 750 mg tablet - Active magnesium oxide 400 mg (241.3 mg magnesium) tablet - Active cinacalcet 30 mg tablet TAKE 1 TABLET BY MOUTH 1 TIME EACH DAY. - Active acetaminophen 500 mg tablet TAKE 1 TABLET BY MOUTH EVERY 6 HOURS NEEDED FOR PAIN - Active chlorhexidine gluconate 0.12 % mouthwash RINSE WITH 15 ML, HOLD X 30 SECONDS AND EXPECTORATE TWICE DAILY X 4 DAYS. START DAY AFTER SURGERY - Active entecavir 0.5 mg tablet - Ac tive valganciclovir 450 mg tablet - Active cyclobenzaprine 5 mg tablet - Active lorazepam 0.5 mg tablet TAKE 1 TABLET BY MOUTH AT NIGHT NEEDED ANXIETY - Active zolpidem 5 mg tablet TAKE 1 TABLET BY MOUTH EVERY DAY AT BEDTIME NEEDED FOR SLEEP - Active cetirizine 5 mg tablet - Act marciano pramipexole 0.25 mg tablet - Active furosemide 20 mg tablet TAKE 1 TABLET (2 0 MG TOTAL) BY MOUTH ONE TIME EACH DAY - Active carvedilol 6.25 mg tablet PLEASE SEE ATTACHED FOR DETAILED DIRECTIONS - Active Procedures Procedure Date [employer] F[employer] IOL Master Calculation RT Post Op Visit [employer] Fee Ophthalmic IOL Master SCODI--Retina WOOD 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 [address] [place], [place], [id number] , . tel: [phone] [facility], [address] [place] [address], [facility], tel: [phone] [place] No Information 4 Karma Bassett. [address] [place] [address], [id number] , . tel: [phone] Referring Provider: Ahsan Wayne OD E, [address] [place] [address], [address]. tel:[phone] [facility], [address] [place] [address], [facility], tel:[phone] [place] s/p PCIOL OS (chief complaint) Combined forms of age-related cataract, right eyePseudophakia of left eyeRegular astigmatism, right eye 4 Karma Bassett. [address] [place] [address], [id number] , . tel: [phone] Referring Provider: Serjio Parada, [address] [place] [address], [id number] . tel:[phone] [facility], [address] [place] [address], [facility], tel:[phone] [place] No Information 4 Karma Bassett. [address] [place] [address], [id number] , . tel: [phone] Referring Provider: Ahsan Wayne OD E, [address] [place] [address], [address]. tel:[phone] WOOD HEEL FLAP INSERTER Moderate MDM [facility], [address] [place] [address], [facility], tel:[phone] [place] blurry vision (chief complaint) Combined forms of age-related cataract, bilateralHypertens marciano retinopathy, bilateralRegular astigmatism, bilateral 4 Karma Bassett. [address] [place] [address], [id number] , . tel: [phone] Referring Provider: Serjio Parada, [address] [facility], [place], [address] . tel:[phone] Family History Family Member Type Diagnosis Age At Onset Problem Family history of Arthritis Payers Payer name Insurance type Covered green party ID Authoriza tion(s) No Information Social History Type Description Quantity Date Captured Comments Alcohol Use Details Unknown Caffeine Use Details Unknown Tobacco Use Status No Information Smoking Status No Information Sex Female Chief Complaint And Reason For Visit No Information Reason For Referral Reason For Referral No Information History Of Present Illness Encounter Date Complaint History Of Prese nt Illness s/p PCIOL OS The 74 year old patient presents for evaluation of s/p PCIOL OS. Pt reports he is doing well, denies any complaints or concerns regarding OS. Pt denies any pain, states VA OS is improved. Pt using all PO gtts as directed.Pt would like to continue tx OD, will begin pre-op gtts as directed. Pt VA OD could not be improved further with a refraction. blurry vision The 73 year old patient presents for evaluation of blurry vision in the right eye and left eye. Pt referred by Dr. Wayne who was unable to improve pt VA OU further with a refraction. It occurs all the time. The onset was gradual. It affects both near and far vision. The symptom is constant. The condition is significant. Pt reports trouble seeing street signs, poor night V, glares/halos, and hazy/blurred V. Pt having difficulty driving at night. Pt is not using any gtts - denies any pain or discomfort at this time. Functional Status Date Functional Assessmen t No Information Instructions Date Instruction Additional Infor mation Impression/Plan Related to Pseud ophakia of left eye Impression/Plan Related to Regul ar astigmatism, right eye Impression/Plan Related to Combi victorina forms of age-related cataract, right eye Impression/Plan Related to Combi victorina forms of age-related cataract, bilateral Impression/Plan Related to Hyper tensive retinopathy, bilateral Impression/Plan Related to Regul ar astigmatism, bilateral Assessments Type Assessment Date No Information Patient Care Teams Name Effective Dates (start - stop) Status Members No Information
--- OUTSIDE RECORDS SUMMARY | 2024-11-01 03:45 | XMS_ITS ---
Author Organization [facility] Address [address] [place] [address] Care Team Providers Care Disk Sharpener Name Role Phone DEZ SHARPE Primary Care Provider MARLA RICHARDS Unavailable [phone] REASON FOR VISIT 27/6mo f/u Encounters Encounter Location Date Provider Diagnosis [address] [address] 11/01/2024 DEZ SHARPE Plan Of Treatment Next Appt Details Provider Name:DEZ Sparks, 05/27/2025 11:00:00 AM, [address] [place] [address], [phone], Progress Notes * MERCEDEZ ELIAS MDOB:[birth year] (75 yo F)Acc No.[id number]:11/01/2024 Progress Notes Patient: MERCEDEZ PATRICIA Provider: Yesenia Sharpe MD :1950 A ge:74 Y S ex:Female Date:11/01/2024 Address:[address] [facility] Subjective: * Chief Complaints: * 2 7/6mo f/u * Electronic signature of LAURYN SHARPE M.D. on 03/11/2025 at 09:56 PM EST Sign off status: Pending * Provider: Yesenia Sharpe MD Date: 0 11/01/2024 Generated for Paddy morris/Nahum/Dianna on: 1 05/12/2024 09:56 PM EST
[2025-03-11 18:16] LABS: MANUAL DIFF FLAG NO
[2025-03-11 18:19] LABS: Hematocrit 30.2 % (37.0-47.0); Hemoglobin 9.8 g/dl (12.0-16.0); Imm Gran Abs Auto 0.01 X10*3/uL (0.00-0.03); Imm Gran Pct Auto 0.2 % (0.0-0.4); Lymphocytes Absolute Auto 1.1 X10*3/uL (1.2-4.9); Mean Corpuscular HGB Conc 32.5 g/dl (31.0-35.0); Mean Corpuscular Hemoglobin 30.3 pg (27.0-33.0); Mean Corpuscular Volume 93.5 fL (80.0-98.0); NRBC Abs Auto 0.000 X10*3/uL (0.0-0.012); NRBC Pct Auto 0.0 /100WBC (0.0-0.2); Platelet Count 152 X10*3/uL (160-400); Red Blood Count 3.23 X10*6/uL (4.20-5.50); White Blood Count 6.6 X10*3/uL (4.8-10.8)
[2025-03-11 18:56] LABS: Alanine Aminotransferase 17 U/L (0-31); Anion Gap 9 (12-20); Aspartate Amino Transferase 24 U/L (5-31); Blood Urea Nitrogen 35 mg/dL (9-16); Calcium 10.4 mg/dL (8.4-10.2); Carbon Dioxide 21 mmol/L (22-29); Chloride 106 mmol/L (96-108); Estimated Glomerular Filt Rate 27; Potassium 4.7 mmol/L (3.3-5.1); Sodium 131 mmol/L (135-145)
--- OUTSIDE RECORDS SUMMARY | 2025-03-11 21:56 | XMS_ITS | Clinical Summary ---
Author Organization 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 For any questions, please call customer service at FREQUENCY:QUARTERLY Resulting Agency Comment Specimen source: Blood David Ferrera MD LAB BLOOD BANK TEST ORDERABLES F inal Result APS ROBYN PVNMA from Last 3 Months or Most Recently Relevant to Health Maintenance Insurance [id number] Medicare [facility] Medicare Care Teams Aerospace Project Engineer Relationship Specialty Start Date End Date Monica Iniguez PA-C [address] [place] [id number] PCP - General Physician Blood Coordinator 07/05/23
--- OUTSIDE RECORDS SUMMARY | 2025-03-11 21:56 | XMS_ITS | Clinical Summary ---
Author Organization [facility] Address [address] [place] [address] Phone Care Team Providers Care Glass Polisher Name Role Phone Toñito Sargent MD Primary Care Provider [phone] Allergies Active Allergy Reactions Criticality Noted Date [...] transplant 09/29/2022 Overview (07/08/2024): campath induction Cardiomyopathy 03/24/2022 Overview (03/11/2024): - See echo under NSTEMI section Last Assessment & Plan: Patient is euvolemic on exam. Unclear if she will have significant resolution of her LV hypertrophy even after renal transplant but her EF has been normal and she has no heart failure symptoms. Continue current Lasix every other day. See further medication recommendations on her hypertension section. Non-ST elevation NV (NSTEMI) 03/24/2022 Overview (03/11/2024): - I met her in consultation in the hospital in November into early December 2021- she presented with hypoxic respiratory failure ultimately secondary to COVID-19 pneumonia - In the midst of all this, she had high-sensitivity troponins checked and trended and there was an acute rise going from 248 [id number] down to 832 with flat CK but [...] to avoid confusion, I believe that the exotic dancer should be the sole person in charge of blood pressure medication alterations versus her primary care. This is mainly so we avoid any interactions with transplant medications. She has regularly been following with her exotic dancer and during those visits her blood pressures [...] to next year's visit Intracranial subdural hematoma 10/08/2021 Iliopsoas bursitis 10/06/2021 Degenerative joint disease involving multiple rahul ints 12/23/2020 Disorder of sacroiliac joint 12/23/2020 Dyslipidemia 12/23/2020 End stage renal disease 12/23/2020 Gastroesophageal reflux disease 12/23/2020 Assessment & Plan (07/09/2024 4:48 PM EDT): Controlled with PPI daily, continue as directed Discussed EGD add-on given she is due for colonoscopy, patient declined today. Reviewed return precautions if symptoms persist. Reviewed risks of missed lesion, delay in diagnosis with EGD. Low back pain 12/23/2020 Type 2 diabetes mellitus 12/23/2020 Secondary hyperparathyroidism of renal origin 08 /05/2020 Stage 5 chronic kidney disease 11/02/2020 Resolved Problems Problem Noted Date Diagnosed Date Resolved Date Dependence on renal dialysis 12/23/2020 07/09/2024 Encounters Date Type Department Care Team Description 12/13/2024 Telephone [facility] [address] [facility] [address] [place] [address] Galina Yusuf MD from Last 3 Months Immunizations Immunization Administration Dates Next Due Pfizer SARS-CoV-2 COVID-19, [...] History Date Comments Dependence on renal dialysis ([facility] V24) 12/23 Diabetes mellitus ([facility] V24, [facility] V28) Hypertension GERD (gastroesophageal reflux disease) Thyroid [...] Safety Answer Date Record ed Physical Abuse Unrecognized value 08/29/2024 Verbal Abuse Unrecognized value 08/29/2024 Comments Unknown Sex and Gender Information [...] 08/23/2024 10:09 AM EDT Plan of Treatment Health Maintenance Due Date Last Done Comments Diabetes: Annual Foot Exam 02/17/1960 Diabetes: Annual Retina Eye Exam 02/17/1960 Zoster Vaccines (2 of 2) 06/04/2020 04/09/2020 Cholesterol Screening (Lipid Panel) 03/05/2022 Hepatitis C Screening 03/05/2022 Medicare Annual Wellness Visit 03/05/2022 Osteoporosis Screening (Bone Density Screening) 03/05/2022 Social Influencers of Health Screening 03/05/2022 Hypertension/CHF/CAD Annual BMP Blood Test 05/03/2023 Depression Screening 04/03/2024 Diabetes: Blood Sugar Control Test (HGBA1C) 07/08/2024 COVID-19 Vaccine ( season) 2024 12/13/2023, 01/03/2023, 01/18/2022, Additional history [...] Maintenance Results * COLONOSCOPY Anesthesia - MAC; [facility] ENDOSCOPY (08/29/2024 3:43 PM EDT) Anatomical Region [...] for surveillance. Narrative 08/29/2024 3:45 PM EDT [facility] Patient Name: Daisy Reyes Procedure Date: [...] not prolapse). Procedure Code(s): --- Professional --- 95522, Colonoscopy, flexible; with removal of tumor(s), polyp(s), or other lesion(s) by snare technique Diagnosis Code(s): --- Professional --- Z86.010, Personal history of colonic polyps D12.2, Benign neoplasm of ascending colon D12.3, Benign neoplasm of transverse colon (hepatic flexure or splenic flexure) CPT copyright 2020 [employer]. All rights reserved. The codes documented in this report are preliminary and upon horse identifier review may be revised to meet current compliance requirements. Ebony Bradley MD 08/29/2024 3:44:34 PM This report has been signed electronically.Ebony Bradley MD Number of Addenda: 0 Note Initiated On: 08/29/2024 2:57 PM Scope In: Scope Out: Endoscopy Department at [facility] - [address] [place] [phone] Procedure Note Ebony Bradley MD - 08/29/2024 [facility] Patient Name: Daisy Reyes Procedure Date: [...] not prolapse). Procedure Code(s): --- Professional --- 83318, Colonoscopy, flexible; with removal of tumor(s), polyp(s), or other lesion(s) by snare technique Diagnosis Code(s): --- Professional --- Z86.010, Personal history of colonic polyps D12.2, Benign neoplasm of ascending colon D12.3, Benign neoplasm of transverse colon (hepatic flexure or splenic flexure) CPT copyright 2020 [employer]. All rights reserved. The codes documented in this report are preliminary and upon horse identifier reviewmay be revised to meet current compliance requirements. Ebony Bradley MD 08/29/2024 3:44:34 PM This report has been signed electronically.Ebony Bradley MD Number of Addenda: 0 Note Initiated On: 08/29/2024 2:57 PM Scope In: Scope Out: Endoscopy Department at [facility] - [address] [place] [phone] IMPRESSION: - Hemorrhoids found on perianal exam. [...] Recently Relevant to Health Maintenance Insurance MEDICARE [facility] Advance Directives Documents on File Type Date Recorded Patient Corporation Officer Expl anation Health Care Decision (hx) 09/25/2015 [...] (hx) 09/25/2015 AD KERR DIRECTIVE Care Teams Glass Polisher Relationship Specialty Start Date End Date Toñito Sargent MD [address] [place] [address] PCP - General Internal Medicine 08/23/24
--- OUTSIDE RECORDS SUMMARY | 2025-03-11 21:56 | XMS_ITS | Clinical Summary ---
Author Organization [facility] Address [address] [place] [address] Care Team Providers Care Transport Aide Name Role Phone Dyana Lockhart MD Primary Care Provider [phone] Social History Tobacco Use Types Packs/Day Years [...] Vaccine 11/01/2024 12/25/2016, , 02/26/2014 COVID-19 Vaccine (2024-2 6 season) 2024 01/18/2022, 09/04/2021, 01/19/2021, Additional history exists RSV Vaccine 50 years and old er and Patients (1 - 1-dose 75+ series) 2025 Medical Devices Implanted Type Area Senior Java Web Application Developer Device Identifier Shelf Expiration Date Model / Serial / Lot [id number] Lens Iol +24.5 Batool Mod C 13mm 6mm Posterior Chamber 1 Pc - [id number] Implanted:Qty: 1 on 02/22/2024 by Serjio Parada MD at [facility] [place] [employer] [id number] / [id number] / [id number] Lens Iol +23.5 Batool Mod C 13mm 6mm Posterior Chamber 1 Pc - [id number] Implanted:Qty: 1 on 03/14/2024 by Serjio Parada MD at [facility] [place] [employer] [id number] / [id number] / Insurance MEDICARE PART A & B [facility] MEDICARE Care Teams Transport Aide Relationship Specialty Start Date End Date Dyana Lockhart MD [address] [place] [id number] PCP - General Family Medicine 03/16/23
--- OUTSIDE RECORDS SUMMARY | 2025-03-11 21:56 | XMS_ITS | Encounter Summary ---
Author Organization [facility] Address [address] [facility] [address] [place] [address] Phone Care Team Providers Care Nuclear Radiation Engineer Name Role Phone Monica Iniguez PA-C Primary Care Provider + Reason for Visit * Reason Comments Med Refill Encounter Details Date Type Department Care Team (Late st Contact Info) Description 07/11/2022 Refill [facility] [address] [facility] [place] [address] [place] [address] David Ferrera MD [address] [place] [phone] Social History Tobacco Use Types Packs/Day Years [...] on filedocumented in this encounter Care Teams Nuclear Radiation Engineer Relationship Specialty Start Date End Date Monica Iniguez PA-C [address] [place] [phone] PCP - General Physician Title Attorney 07/05/23 documented as of this encounter
--- OUTSIDE RECORDS SUMMARY | 2025-03-11 21:56 | XMS_ITS | Encounter Summary ---
Author Organization [facility] Address [address] [facility] [address] [address] [place] [address] Phone Care Team Providers Care Paper Cup Machine Operator Name Role Phone Monica Iniguez PA-C Primary Care Provider + Reason for Visit * Reason Comments Med Refill Encounter Details Date Type Department Care Team (Late st Contact Info) Description 06/27/2022 [facility]ill [facility] [address] [facility] [address] [address] [place] [address] David Ferrera MD [address] [place] [phone] Social History Tobacco Use Types Packs/Day Years [...] on filedocumented in this encounter Care Teams Paper Cup Machine Operator Relationship Specialty Start Date End Date Monica Iniguez PA-C [address] [place] [phone] PCP - General Physician Arc And Gas Welder 07/05/23 documented as of this encounter
--- OUTSIDE RECORDS SUMMARY | 2025-03-11 21:57 | XMS_ITS | Patient Health Record ---
Author Organization [facility] Address [address] [place] [address] Care Team Providers Care Wool Hat Hydraulicker Name Role Phone DEZ OREILLY Primary Care Provider MARLA RICHARDS Unavailable [phone] [place], NURSING Unavailable [phone] KATTY Woodson Unavailable Allergies Allergen (clinical drug ingredient) Drug/Non Drug Allergy documented on EMR Reaction Allergy Type Onset Date Status sulfamethoxazole / trimethoprim Bactrim tongue swelling Drug Allergy Active codeine Codeine itching Drug Allergy Active Reason For Referral Reason (2)back pain ( 5, 04/30/24 W appt Referral Organization [facility] Referring Provider First [...] for PSS referral to be sent to [facility], she does not want to go to [facility]., see message started., Zulema ORR Referrals 07/16/2024 02:27:51 PM > noted, medical referral and notes have been faxed to [facility] at [phone], Zulema ORR Referrals 10/09/2024 11:09:03 AM > per ale correspondenced from [facility]. the patient was seen on 09/05/24 Referral Priority Routine Reason CALL OFFICE TO SEE I F PATIENT WAS SEEN, NO NOTE IN CHART ... (06/25/24 W appt) [employer] [facility] Referral Organization [facility] Referring Provider First Name MARLA Referring Provider Last Name SUSIE Referring Provider Speciality Nurse Prac titioner Referred Provider Specialty Gastroentero logy General Notes Zulema ORR Referrals 06/25/2024 02:51:43 PM > reqest for last ov note/demo/med and allergy list received from [facility], fax: [phone], medical referral and notes have been faxed to [facility] at [phone], Breonna ORR Referrals 01/16/2025 09:32:59 PM > CALL OFFICE TO SEE IF PATIENT WAS SEEN, NO NOTE IN CHART Referral Priority Routine Reason please call and cons ult [facility] ??redo THR....appt has to be with dr bravo so ok to [facility] Referral Organization [facility] Referring Provider First Name DEZ Referring Provider Last Name AFIA Referring Provider Speciality Internal M edicine General Notes Cristin ORR [place] 02:40:21 PM > please call and consult dr [facility] for [facility] ??redo THR....appt has to be with dr bravo so ok to [facility] Referral Priority Routine Medications Medication SIG (Take, Route, Frequency, Duration) Notes Start Date End Date Status traMADol HCl 50 MG Tablet 1 Orally bid prn 025 Active Ondansetron 4 MG Tablet Disintegrating 1 Orally tid 01/17/2025 Active Marinol 2.5 MG Capsule 1 Orally bid 01/24/2025 Active Omeprazole 20 MG Capsule Delayed Release TAKE 1 CAPSULE BY MOUTH DAILY 0.5 TO 1 HOUR BEFORE BREAKFAST Active Folic Acid 400 MCG Tablet 1 tablet Orall y Once a day Active Medrol 4 MG Tablet Therapy Pack as directed Orally daily; Duration: 6 01/15/2025 Active tiZANidine HCl 4 MG Tablet 1 tab(s) oral ly twice daily Active Aspirin 81 81 MG Tablet Chewable 1 tablet Orally Once a day Active Carvedilol 6.25 MG Tablet 1 tab Orally t wo times a day Active Atorvastatin Calcium 40 MG Tablet 1 tablet Orally Once a day Active Tacrolimus ER 1 MG Tablet Extended Release 24 Hour 4 tabs Orally once daily Active Losartan Potassium 50 MG Tablet 1 tab(s) Orally two times a day Active Vitamin D3 50 MCG (1999 UT) Capsule 1 capsule orally once a day Active Magnesium Oxide 400 MG Tablet 1 tablet Orally bid Active Keppra 750 MG Tablet 1 tab(s) Orally 2 t imes a day Active Doxazosin Mesylate 4 MG Tablet 1 tablet Orally nightly Acti ve Immunizations Vaccine Route Administration Date Status Comme nts Influenza, Fluzone, High-Dose, 65+ IM Intramuscular 02/22/2016 Administered DO NOT USE Influenza Unknown 02/18/2005 Administered Zostavax (Shingles) Unknown 10/27/2011 Administered Pneumococcal,Prevn ar 13, PEDS STATE SUPPLIED IM Intramuscular 04/16/2015 Administered Pneumococcal, PPV 23 IM Intramuscular 05/03/2017 Administered Influenza, Fluvirin multi dose IM Intramuscular 12/25/2016 Administered Influenza Unknown 02/05/2010 Administered Influenza Unknown 12/22/2010 Administered Influenza Unknown 2012 Administered Influenza Unknown 02/02/2015 Administered recieved at pharm Fluad Dont use IM Intramuscular 03/02/2018 Administered Fluad Dont use IM Intramuscular 03/02/2018 Administered Fluad Dont use IM Intramuscular 01/17/2019 Administered [employer] FLU- FLUVIRIN, PRE-FILLED SYRINGE 0.5 ml IM Intramuscular 02/26/2014 Administered Social History Tobacco Use: Social History Observation Description Date Details (start date - stop date) Never Smoker NA - NA Social History Drug/Alcohol: Social Info Question Answer Notes Alcohol Screen Did you have a drink containing alcohol in the past year? Yes How often did you have a drink containing alcohol in the past year? Two to four times a month (2 points) How many drinks did you have on a tpical day when you were drinking in the past year? 1 or 2 (0 points) How often did you have six or more drinks on one occassion in the past year? 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 asbestos exposure: No Past year's travels: [place] alcohol use: yes occasionally drug use: No Hobbies/Exercise habits: dance Coffee/Tea/Soda: yes No Coffee, Tea 1-2 daily, Soda occasionally Marital Status experience No Living with Pets 1 dog smokers in household No pt never sm jayesh Section Notes: never smoked never smoked never smoked Problems Problem Type SNOMED Code ICD Code Onset Dates Problem Status W/U Status Risk Notes Problem Anxiety disorder (175064012) Anxiety disorder NOS (300.00) Active confirmed Problem Osteoarthritis (236045419) osteoarthritis (715.90) Active confirmed Problem Essential hypertension (62750201) Essential hypertension (I10) Active confirmed Problem Vitamin D deficiency (25816400) Vitamin D deficiency (E55.9) Active confirmed Problem Nausea (385615087) Nausea (R11.0) Active confir med Problem Multinodular goiter (093086406) Multinodular goiter (E04.2) Active confirmed Problem Abnormal mammogram (376317881) Abnormal mammogram (R92.8) Active confirmed Problem Diabetic renal disease (131882165) 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.29) Active confirmed Problem End stage renal disease (00666673) End stage renal disease (N18.6) Active confirmed Problem Proteinuria (92917797) Proteinuria, unspecified (R80.9) Active confirmed Problem Seizure disorder (945339460) Seizure disorder (G40.909) Active confirmed Problem Gastroesophageal reflux disease without esophagitis (253575550) Gastroesophageal reflux disease without esophagitis (K21.9) Active confirmed Problem Type II diabetes mellitus without complication (737739877) Type 2 diabetes mellitus without complication (E11.9) Active confirmed Problem Insomnia disorder related to another mental disorder (61202012) Psychophysiological insomnia (F51.04) Active confirmed Problem Aortic valve disorde r (6191375) Aortic stenosis, moderate (I35.0) Active confirmed Problem Posttraumatic stress disorder (42378486) PTSD (post-traumatic stress disorder) (F43.10) Active confirmed Problem Acute non-ST segment elevation myocardial infarction (107627820) NSTEMI (non-ST elevated myocardial infarction) (I21.4) Active confirmed Problem Acute non-ST segment elevation myocardial infarction (942701940) Non-STEMI (non-ST elevated myocardial infarction) (I21.4) Active confirmed Problem Otalgia of right ear (finding) (9800346383) Otalgia, right (H92.01) Active confirmed Problem Primary hypertension (84944509) Primary hypertension (I10) Active confirmed Problem Pure hypercholesterolemia (535708648) Pure hypercholesterolemia (E78.00) Active confirmed Problem Pure hypercholesterolemia (156400688) Pure hypercholesterolemia, unspecified (E78.00) Active confirmed Problem Hallucinations (3905426) Auditory hallucination (R44.0) Active confirmed Problem Sciatica (39231062) Acute right- sided low back pain with left-sided sciatica (M54.42) Active confirmed Problem Cardiomyopathy (49608131) Cardiomyopathy, unspecified type (I42.9) Active confirmed Problem Hyperparathyroidism due to renal insufficiency (08642875) Secondary hyperparathyroidism (of renal origin) (N25.81) Active confirmed Problem Hyperlipidemia (59060445) Other hyperlipidemia (E78.49) Active confirmed Problem Low back pain (539510157) Low back pain, unspecified (M54.50) Active confirmed Problem Diabetic renal disease (896749291) Chronic kidney disease due to diabetes mellitus (E11.22) Active confirmed Problem History of renal transplant (737033726) -donor kidney transplant recipient (Z94.0) Active confirmed Vital Signs Blood pressure diastolic 80 mm Hg 01/15/2025 o2 94 Height 61.5 in 01/15/2025 o2 94 Blood pressure systolic 124 mm Hg 01/15/2025 o2 9 4 Weight 00 lbs 01/15/2025 o2 94 BMI 28.29 kg/m2 04/30/2024 Encounters Encounter Location Date Provider Diagnosis [address] [address] 04/30/2024 [facility] Gastroesophageal ref lux disease without esophagitis K21.9 ; Type 2 diabetes mellitus without complication E11.9 ; Essential hypertension I10 ; Seizure disorder G40.909 ; Pure hypercholesterolemia E78.00 ; End stage renal disease N18.6 ; -donor kidney transplant recipient Z94.0 and Vitamin D deficiency E55.[address] [address] 04/30/2024 [facility] Medicare annual well ness visit, subsequent Z00.[address] [address] 01/15/2025 [facility] Acute right-sided lo w back pain with left-sided sciatica M54.42 ; Mid back pain M54.9 ; Hyperglycemia R73.9 ; -donor kidney transplant recipient Z94.0 ; Vitamin D deficiency E55.9 ; Essential hypertension I10 and Other hyperlipidemia E78.[address] [address] 12/06/2024 [facility] Type 2 diabetes rylee itus without complication E11.9 ; Acute bilateral low back pain without sciatica M54.50 ; Essential hypertension I10 ; Seizure disorder G40.909 ; Other hyperlipidemia E78.49 and -donor kidney transplant recipient Z94.[address] [address] 02/04/[address] [address] 01/24/[address] [address] 01/24/[address] [address] 01/17/2025 [facility] [address] [address] 01/16/2025 [facility] [address] [address] 01/15/2025 [facility] [address] [address] 01/15/2025 [facility] [address] [address] 01/14/[address] [address] 01/14/2025 [facility] [address] [address] 12/13/2024 [facility] [address] [address] 12/06/[address] [place] [address] 10/28/[address] [address] 08/28/[address] [place] [address] 08/23/[address] [place] [address] 07/15/[address] [address] 06/17/[address] [address] 05/27/2024 [facility] Encounter for screen ing mammogram for malignant neoplasm of breast Z12.[address] [address] 04/30/[address] [address] 04/06/2024 [facility] Assessments Encounter Date Diagnosis (ICD Code) Assessment Notes Treatment Notes Treatment Clinical Notes Section Notes 01/15/2025 Mid back pain (ICD-1 0 - M54.9) will check mri t spine 01/15/2025 Acute right-sided lo w back pain with left-sided sciatica (ICD-10 - M54.42) will rx medrol..[facility] demetriabs..will try and find dr lundy... will check mri of ls spine and t spoine as well 12/06/2024 Type 2 diabetes rylee itus without complication (ICD-10 - E11.9) she will get me a copy of all of her labs 12/06/2024 Acute bilateral low back pain without sciatica (ICD-10 - M54.50) visit last ed from 2; to 340 ..i have agrreed to track down her mri xrays and orho /pain mgmt eval and give her a call in a week or so with a treatment plan 04/30/2024 Gastroesophageal ref lux disease without esophagitis (ICD-10 - K21.9) rec contined avoidance of spicy foods..wt loss..no nsaids..will rx PPI for 2 months..call me INB 1-2 weeks 04/30/2024 Type 2 diabetes rylee itus without complication (ICD-10 - E11.9) slip for labs..diet and exercise..sl ip for labs given tp pt 04/30/2024 Medicare annual well ness visit, subsequent (ICD-10 - Z00.00) AWV form reviewed with pt 05/27/2024 Encounter for screen ing mammogram for malignant neoplasm of breast (ICD-10 - Z12.31) 04/30/2024 Essential hypertensi on (ICD-10 - I10) rec low salt diet and exercise and wt loss.. 12/06/2024 Essential hypertensi on (ICD-10 - I10) 01/15/2025 Hyperglycemia (ICD-1 0 - R73.9) needs abs to follow sugars 12/06/2024 Seizure disorder (IC D-10 - G40.909) 01/15/2025 -donor kidne y transplant recipient (ICD-10 - Z94.0) 04/30/2024 Seizure disorder (IC D-10 - G40.909) cont rx..call if issues 04/30/2024 Pure hypercholesterolemia (ICD-10 - E78.00) cont rx..follow labs..low fat diet 12/06/2024 Other hyperlipidemia (ICD-10 - E78.49) 01/15/2025 Vitamin D deficiency (ICD-10 - E55.9) 01/15/2025 Essential hypertensi on (ICD-10 - I10) 12/06/2024 -donor kidne y transplant recipient (ICD-10 - Z94.0) 04/30/2024 End stage renal dise ase (ICD-10 - N18.6) cont rx and care with renal 04/30/2024 -donor kidne y transplant recipient (ICD-10 - Z94.0) cont rx and care with renal 01/15/2025 Other hyperlipidemia (ICD-10 - E78.49) 04/30/2024 Vitamin D deficiency (ICD-10 - E55.9) 04/30/2024 Other refill sent..will refer to [facility] per her request Plan Of Treatment Pending Test Test Name Order Date Echocardiogram 02/08/2022 US : ABDOMEN UPPER QUADRANTS 10/16/2020 CBC W/OUT AUTOMATED DIFF 10/19/2020 URINALYSIS WITH REFLEX MICROSCOPIC 10/19 Future Test Test Name Order Date TSH WITH REFLEX TO FT4 01/29/2020 LIPID [...] and/or breast biopsy if warranted 10/16/2023 Hemoglobin [id number] 04/30/2024 CBC With Differential/Platelet-[id number] TSH Rfx on Abnormal to Free [id number] LP+Non-HDL Cholesterol-[id number] 04/30/2024 Comp. Metabolic Panel [id number] 2024 Next Appt Details Provider Name:DEZ Rodriguez SHARATH Sparks, 05/27/2025 11:00:00 AM, [address] [place] [address], [id number], Insurance Providers Payer Name Payer Address Payer Phone Subscriber Number Group Number Insured Name Patient Relationship to Insured Coverage Start Date Coverage End Date MEDICARE [employer] [address] [place] [address] [id number] DIGNANHI MERCEDEZ Rodriguez Self - patient is the insured [facility] [address] [place] [address] [id number] MERCEDEZ HOFFMAN Self - patient is the insured Medical (General) History Medical History History ICD Code Hypertension Type [...] toxoplasma ab +) Surgical History Surgery Date(Month/Year) Hysterectomy - [facility] Back surgery Appy as a child trigger finger surgery 07/2011 Right renee hole drainage of subdural hem atoma. 09/24/2015 hip 2010 Right arm fistula repair 01/18/2022 renal transplant 09/30/2022 Hospitalization History Reason Date(Month/Year) [facility]-Acute subdural hematoma. 09/24/2015 [facility]-Right cerebral infarct. 09/28/2015 [facility]: Acute renal failure 10/19/2020 [facility] ED: partial seizure 06/18/2021 [facility]: pneumonia versus asymmetric pulmona ry edema 12/01/21
[2025-03-12 06:58] LABS: Tacrolimus Prograf 7.2 mcg/L
== END 2025-03-11 15:23 | disposition home or self-care (01) ==
LOC: HO.HKASLDS 15:22
PROVIDERS: PCP Internal Medicine; Visit Provider Internal Medicine Nephrology
DX: I10 Essential (primary) hypertension (principal); Z94.0 Kidney transplant status; B34.8 Other viral infections of unspecified site; Z13.21 Encounter for screening for nutritional disorder
CPT/HCPCS: 36415; 80051; 80197; 82306; 82310; 82565; 84450; 84460; 84520; 85025

== ENCOUNTER 2025-03-18 14:09 | Outpatient (AMB) | payer MEDICARE, OTHER, SELFPAY ==
--- OUTSIDE RECORDS SUMMARY | 2024-11-01 03:45 | XMS_ITS ---
Author Organization [facility] Address [address] [place] [address] Care Team Providers Care Paint Trimmer Pipe Bowls Name Role Phone DEZ SHARPE Primary Care Provider MARLA RICHARDS Unavailable [phone] REASON FOR VISIT 27/6mo f/u Encounters Encounter Location Date Provider Diagnosis [address] [address] 11/01/2024 DEZ SHARPE Plan Of Treatment Next Appt Details Provider Name:DEZ Sparks, 05/27/2025 11:00:00 AM, [address] [place] [address], [phone], Progress Notes * MERCEDEZ ELIAS MDOB:[birth year] (75 yo F)Acc No.[id number]:11/01/2024 Progress Notes Patient: MERCEDEZ PATRICIA Provider: Yesenia Sharpe MD :1950 A ge:74 Y S ex:Female Date:11/01/2024 Address:[address] [facility] Subjective: * Chief Complaints: * 2 7/6mo f/u * Electronic signature of LAURYN SHARPE M.D. on 03/18/2025 at 06:22 PM EST Sign off status: Pending * Provider: Yesenia Sharpe MD Date: 0 11/01/2024 Generated for Paddy morris/Nahum/Dianna on: 1 05/19/2024 06:22 PM EST
--- NOTE | 2025-03-18 14:40 | HO.NEPHOV ---
Vital Signs 03/18/25 14:43 Height 5 ft 2 in Weight 147 lb 2 oz BMI 26.9 BP 140/90 H Blood Pressure Location Lt brachial Position Sitting Pulse 72 Pulse Source Pulse Oximeter Pulse Oximetry (%) 95 Oxygen Delivery Method Room Air Intake Visit Reasons: Transplant pt [facility] Insurance Representative Required: No Accompanied by: Self / Same As Patient Allergies codeine Allergy (Verified 03/18/25 14:43) Itching sulfamethoxazole (From Sulfamethoxazole-Trimethoprim) Allergy (Verified 03/18/25 14:43) Swelling trimethoprim (From Sulfamethoxazole-Trimethoprim) Allergy (Verified 03/18/25 14:43) Swelling HPI Comments Details: Daisy is 75 years of age and had 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 She has history of cardiomyopathy and dyslipidemia as well as prior subdural hematoma needing craniotomy. She underwent a donor renal transplant on 09/29/2022. Induction was done using Campath and Solu-Medrol. She was on hemodialysis for 2 years prior to her transplant. Recipient CMV was negative/ EBV positive. Donor was CMV positive, hepatitis C core antibody positive, toxoplasma positive. She used to take Atovaquone until March of 2023. She was on Valcyte which was discontinued on September. She had a PRA of 0. She has no fever, chills, rigors, hematuria, dysuria, pedal edema, chest pain, shortness of breath, tremor, new skin rashes or any joint swellings. She is compliant with her medications. She has no history of any rejections. 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 Her BP has been at goal but her recent serum creatinine has gone up. She has not come for any follow up visits for close to 7 months [facility] Medical History (Updated 03/18/25 @ 14:43 by David Ferrera MD) Disorder of SI (sacroiliac) joint Hypokalemia Hypertension GERD (gastroesophageal reflux disease) Diabetes mellitus Acute kidney injury Surgical History History of angioplasty Family History Father Hypertension Mother Heart disease Hypertension Social History Alcohol intake: current Patient Tobacco Use Status: Never used Tobacco Review of Systems Const All systems reviewed & are unremarkable except as noted in HPI and below Physical Exam Vital Signs: Last Vital Signs Pulse 72 03/18/25 14:43 BP 140/90 H 03/18/25 14:43 Pulse Ox 95 03/18/25 14:43 Oxygen Delivery Method Room Air 03/18/25 14:43 BMI result Body Mass Index 26.9 Const General: comfortable and no acute distress Orientation/consciousness: patient oriented x3 HEENT Head: Yes normocephalic Mouth: Normal oral and palatal mucosa present Eyes EOM: EOMs intact bilaterally Neck Neck: Yes supple Resp Auscultation: clear to auscultation bilaterally Cardio Jugular venous distension: no JVD Rate: regular rate GI Palpation (GI): Soft to palpation Auscultation: normal bowel sounds General: Yes no CVA tenderness Back/Spine/Pelvis Back: no CVA tenderness Skin General skin exam: no rashes or lesions noted Neuro General: patient oriented x3 and moves all extremities Extrem General: Yes no pedal edema Results Reviewed Nephrology Results: Hgb, (12.0-16.0) 9.8 g/dl L 03/11/25 WBC, (4.8-10.8) 6.6 X10*3/uL 03/11/25 Plt Count, (160-400) 152 X10*3/uL L 03/11/25 Sodium, (135-145) 131 mmol/L L 03/11/25 Potassium, (3.3-5.1) 4.7 mmol/L 03/11/25 Chloride, (96-108) 106 mmol/L 03/11/25 Carbon Dioxide, (22-29) 21 mmol/L L 03/11/25 BUN, (9-16) 35 mg/dL H 03/11/25 Creatinine, (0.5-1.4) 1.85 mg/dL H 03/11/25 Calcium, (8.4-10.2) 10.4 mg/dL H 03/11/25 Phosphorus, (2.7-4.5) 2.4 mg/dL L 12/23/24 PTH Intact, (8.7-77.1) 142.9 pg/mL H 12/23/24 Urine Creatinine 290.45 mg/dL 12/19/24 Protein/Creatinin Ratio, (<0.2) 0.10 12/19/24 Assessment & Plan Assessment & Plan (1) Acute kidney injury: Code(s): N17.9 - Acute kidney failure, unspecified Category: Medical (2) BK viremia: Code(s): 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 Her losartan has been put on hold since. ( ? tubular injury due to diarrhea and altered autoregulation while being on ARB). Her DSA has been negative in the past . Her Trugraf was [place]. Her urine protein creatinine ratio was within normal limits. She had it transplant Doppler which did not show any renal artery stenosis. She is on Envarsus monotherapy. She had history of BK virus infection and her levels have been kept low. She had a CMV high-risk donor positivity with the recipient being negative and was maintained on Valcyte 450 mg daily. Her hepatitis-B & C PCR has been negative. Her last CMV and EBV PCR has been negative as well. Blood pressure is very well controlled on the current medication regimen at home. She is off calcium supplements. Her serum calcium is high. I D/Weston her vitamin D and ordered W/U. She may need sensipar. Follow-up lab work was ordered. Follow-up appointment given. Answered all questions Orders: Orders HLA DSA Today N17.9 - Acute kidney failure, unspecified, Z94.0 - Kidney transplant status Sodium Urine Random Today N17.9 - Acute kidney failure, unspecified, Z94.0 - Kidney transplant status Protein Creatinine Ratio, Ur Today N17.9 - Acute kidney failure, unspecified, Z94.0 - Kidney transplant status UA and rflx microscopic Today N17.9 - Acute kidney failure, unspecified, Z94.0 - Kidney transplant status Complete Blood Count Auto Diff Today N17.9 - Acute kidney failure, unspecified, Z94.0 - Kidney transplant status Electrolytes 2 Months N17.9 - Acute kidney failure, unspecified, Z94.0 - Kidney transplant status Aspartate Amino Transferase 2 Months N17.9 - Acute kidney failure, unspecified, Z94.0 - Kidney transplant status Tacrolimus Prograf 2 Months Z94.0 - Kidney transplant status Other Ref Test - Misc Today N17.9 - Acute kidney failure, unspecified, Z94.0 - Kidney transplant status Prothrombin Time INR Today N17.9 - Acute kidney failure, unspecified, Z94.0 - Kidney transplant status Blood Urea Nitrogen 2 Months N17.9 - Acute kidney failure, unspecified, Z94.0 - Kidney transplant status Creatinine 2 Months N17.9 - Acute kidney failure, unspecified, Z94.0 - Kidney transplant status Alanine Aminotransferase 2 Months N17.9 - Acute kidney failure, unspecified, Z94.0 - Kidney transplant status Medications: Discontinued losartan Discontinued Reason: Doctor's Order 50 mg PO BID 180 tabs 3RF Coding Level of Care Code Est Pt Level 4 (20809) Diagnoses Acute kidney injury N17.9 BK viremia B34.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
[2025-03-18 14:43] VITALS: BP 140/90; PULSE 72; O2SAT 95; BMI 26.9
--- OUTSIDE RECORDS SUMMARY | 2025-03-18 18:22 | XMS_ITS | Clinical Summary ---
Author Organization [facility] Address [address] [place] [address] Care Team Providers Care Alumni Secretary Name Role Phone Dyana Lockhart MD Primary Care Provider [phone] Social History Tobacco Use Types Packs/Day Years [...] series) 2025 Medical Devices Implanted Type Area Hip Hop Dancer Device Identifier Shelf Expiration Date Model / Serial / Lot [id number] Lens Iol +24.5 Batool Mod C 13mm 6mm Posterior Chamber 1 Pc - [id number] Implanted:Qty: 1 on 02/22/2024 by Serjio Parada MD at [facility], [employer] [employer] [id number] / [id number] / [id number] Lens Iol +23.5 Batool Mod C 13mm 6mm Posterior Chamber 1 Pc - [id number] Implanted:Qty: 1 on 03/14/2024 by Serjio Parada MD at [facility], [employer] [id number] / [id number] / Insurance MEDICARE PART A & [facility] Care Teams Alumni Secretary Relationship Specialty Start Date End Date Dyana Lockhart MD [address] [place] [id number] PCP - General Family Medicine 03/16/23
--- OUTSIDE RECORDS SUMMARY | 2025-03-18 18:22 | XMS_ITS | Patient Health Record ---
Author Organization [facility] Address [address] [place] [address] Care Team Providers Care Internet Developer Name Role Phone DEZ OREILLY Primary Care Provider MARLA RICHARDS Unavailable [phone] Allergies Allergen (clinical drug ingredient) Drug/Non Drug Allergy documented on EMR Reaction Allergy Type Onset Date Status sulfamethoxazole / trimethoprim Bactrim tongue swelling Drug Allergy Active codeine Codeine itching Drug Allergy Active Reason For Referral Reason (2)back pain ( 5, 04/30/24 W appt Referral Organization [facility] Referring Provider First Name DEZ Referring Provider [...] for PSS referral to be sent to [facility], she does not want to go to [facility] see message started., Zulema ORR Referrals 07/16/2024 02:27:51 PM > noted, medical referral and notes have been faxed to [facility] at [phone], Zulema ORR Referrals 10/09/2024 11:09:03 AM > per incoiming correspondenced from [facility]. the patient was seen on 09/05/24 Referral Priority Routine Reason [facility] (06/25/24 W appt) Referral Organization [facility] As [facility] Referring Provider First Name MARLA Referring Provider Last Name SUSIE Referring Provider Speciality Nurse Alberta strauss Referred Provider DAVINA ESTES Referred Provider Specialty Gastroentero logy General Notes Zulema ORR Referrals 06/25/2024 02:51:43 PM > reqest for last ov note/demo/med and allergy list received from [facility], fax: [phone], medical referral and notes have been faxed to [facility] at [phone], Breonna ORR Referrals 01/16/2025 09:32:59 PM > CALL OFFICE TO SEE IF PATIENT WAS SEEN, NO NOTE IN CHART, Zulema ORR Referrals 03/13/2025 04:27:24 PM > per incoming correspondenced from [facility] dated 08/29/25, the patient had a colonoscopy on 08/29/24 Referral Priority Routine Reason please call and cons ult dr valdes at [facility] for dx hip pain ??redo THR....appt has to be with dr bravo so ok to [facility] Referral Organization [facility] As [facility] Referring Provider First Name DEZ Referring Provider Last Name AFIA Referring Provider Speciality Internal M edicine General Notes Cristin ORR [place] 02:40:21 PM > please call and consult dr valdes at [facility] for dx hip pain ??redo THR....appt has to be with dr bravo so ok to [facility] Referral Priority Routine Medications Medication SIG (Take, [...] directed Orally daily; Duration: 6 01/15/2025 Active Aspirin 81 81 MG Tablet Chewable 1 tablet Orally Once a day Active Carvedilol 6.25 MG Tablet 1 tab Orally t wo times a day Active Atorvastatin Calcium 40 MG Tablet 1 tablet Orally Once a day Active tiZANidine HCl 4 MG Tablet 1 tab(s) oral ly 3 times a day prn Active Tacrolimus ER 1 MG Tablet Extended [...] Dont use IM Intramuscular 01/17/2019 Administered Se [employer] 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 Past year's travels: [place] alcohol use: yes occasionally drug use: No Hobbies/Exercise habits: dance Coffee/Tea/Soda: yes No Coffee, Tea 1-2 daily, Soda occasionally Marital Status experience No Living with Pets 1 dog smokers in household No pt never sm jayesh Section Notes: never smoked never smoked never smoked Problems Problem Type SNOMED Code ICD Code Onset Dates Problem Status W/U Status Risk Notes Problem Anxiety disorder (071655875) Anxiety disorder NOS (300.00) Active confirmed Problem Osteoarthritis (288646771) osteoarthritis (715.90) Active confirmed Problem Essential hypertension (95636995) Essential hypertension (I10) Active confirmed Problem Vitamin D deficiency (80915229) Vitamin D deficiency (E55.9) Active confirmed Problem Nausea (974193463) Nausea (R11.0) Active confir med Problem Multinodular goiter (748352661) Multinodular goiter (E04.2) Active confirmed Problem Abnormal mammogram (402233262) Abnormal mammogram (R92.8) Active confirmed Problem Diabetic renal disease (206952042) 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.29) Active confirmed Problem End stage renal disease (74182778) End stage renal disease (N18.6) Active confirmed Problem Proteinuria (07268590) Proteinuria, unspecified (R80.9) Active confirmed Problem Seizure disorder (055234025) Seizure disorder (G40.909) Active confirmed Problem Gastroesophageal reflux disease without esophagitis (728019818) Gastroesophageal reflux disease without esophagitis (K21.9) Active confirmed Problem Type II diabetes mellitus without complication (061771875) Type 2 diabetes mellitus without complication (E11.9) Active confirmed Problem Insomnia disorder related to another mental disorder (43744278) Psychophysiological insomnia (F51.04) Active confirmed Problem Aortic valve disorde r (0528237) Aortic stenosis, moderate (I35.0) Active confirmed Problem Posttraumatic stress disorder (21791340) PTSD (post-traumatic stress disorder) (F43.10) Active confirmed Problem Acute non-ST segment elevation myocardial infarction (328769151) NSTEMI (non-ST elevated myocardial infarction) (I21.4) Active confirmed Problem Acute non-ST segment elevation myocardial infarction (991730997) Non-STEMI (non-ST elevated myocardial infarction) (I21.4) Active confirmed Problem Otalgia of right ear (finding) (9800952000) Otalgia, right (H92.01) Active confirmed Problem Primary hypertension (97013018) Primary hypertension (I10) Active confirmed Problem Pure hypercholesterolemia (687555522) Pure hypercholesterolemia (E78.00) Active confirmed Problem Pure hypercholesterolemia (384988135) Pure hypercholesterolemia, unspecified (E78.00) Active confirmed Problem Hallucinations (9009257) Auditory hallucination (R44.0) Active confirmed Problem Sciatica (91894482) Acute right- sided low back pain with left-sided sciatica (M54.42) Active confirmed Problem Cardiomyopathy (77745880) Cardiomyopathy, unspecified type (I42.9) Active confirmed Problem Hyperparathyroidism due to renal insufficiency (18129336) Secondary hyperparathyroidism (of renal origin) (N25.81) Active confirmed Problem Hyperlipidemia (18240389) Other hyperlipidemia (E78.49) Active confirmed Problem Low back pain (820159595) Low back pain, unspecified (M54.50) Active confirmed Problem Diabetic renal disease (169135738) Chronic kidney disease due to diabetes mellitus (E11.22) Active confirmed Problem History of renal transplant (422109607) -donor kidney transplant recipient (Z94.0) Active confirmed Vital Signs Blood pressure diastolic 80 mm Hg 01/15/2025 o2 94 Height 61.5 in 01/15/2025 o2 94 Blood pressure systolic 124 mm Hg 01/15/2025 o2 9 4 Weight 00 lbs 01/15/2025 o2 94 BMI 28.29 kg/m2 04/30/2024 Encounters Encounter Location Date Provider Diagnosis [address] [address] 04/30/2024 DEZ OREILLY Medicare annual well ness visit, subsequent Z00.[address] [address] 04/30/2024 DEZ OREILLY Gastroesophageal ref lux disease without esophagitis K21.9 ; Type 2 diabetes mellitus without complication E11.9 ; Essential hypertension I10 ; Seizure disorder G40.909 ; Pure hypercholesterolemia E78.00 ; End stage renal disease N18.6 ; -donor kidney transplant recipient Z94.0 and Vitamin D deficiency E55.[address] [address] 12/06/2024 DEZ OREILLY Type 2 diabetes rylee itus without complication E11.9 ; Acute bilateral low back pain without sciatica M54.50 ; Essential hypertension I10 ; Seizure disorder G40.909 ; Other hyperlipidemia E78.49 and -donor kidney transplant recipient Z94.[address] [address] 01/15/2025 DEZ OREILLY Acute right-sided lo w back pain with left-sided sciatica M54.42 ; Mid back pain M54.9 ; Hyperglycemia R73.9 ; -donor kidney transplant recipient Z94.0 ; Vitamin D deficiency E55.9 ; Essential hypertension I10 and Other hyperlipidemia E78.[address] [address] 04/06/2024 DEZ [place] [id number] 04/30/[address] [address] 05/27/2024 DEZ OREILLY Encounter for screen ing mammogram for malignant neoplasm of breast Z12.[address] [address] 06/17/2024 DEZ [facility] [address] [address] 07/15/2024 DEZ [facility] [address] [address] 08/23/2024 DEZ [facility] [address] [address] 08/28/2024 DEZ [facility] [address] [address] 10/28/2024 DEZ [facility] [address] [address] 12/06/[address] [address] [facility] [address] [address] 01/14/2025 [facility] [address] [address] 01/14/2025 DEZ [facility] [address] [address] 01/15/2025 DEZ [facility] [address] [address] 01/15/2025 DEZ [facility] [address] [address] 01/16/2025 [facility] [address] [address] 01/17/2025 [facility] [address] [address] 01/24/[address] [address] 01/24/[address] [address] 02/04/[address] [address] [facility] right-sided lo w back pain with left-sided sciatica M54.42 Assessments Encounter Date Diagnosis (ICD Code) Assessment Notes Treatment Notes Treatment Clinical Notes Section Notes 05/27/2024 Encounter for screen ing mammogram for malignant neoplasm of breast (ICD-10 - Z12.31) 04/30/2024 Gastroesophageal ref lux disease without esophagitis [...] - Z00.00) AWV form reviewed with pt 12/06/2024 Type 2 diabetes rylee itus without [...] week or so with a treatment plan 01/15/2025 Mid back pain (ICD-1 0 - M54.9) will check mri t spine 01/15/2025 Acute right-sided lo w back pain with left-sided sciatica (ICD-10 - M54.42) will rx medrol..chec k esme..will try and find dr lundy... will check mri of ls spine and t spoine as well 03/14/2025 Acute right-sided lo w back pain with left-sided sciatica (ICD-10 - M54.42) 01/15/2025 Hyperglycemia (ICD-1 0 - R73.9) needs abs to follow sugars 12/06/2024 Essential hypertensi on (ICD-10 - I10) 04/30/2024 Essential hypertensi on (ICD-10 - I10) rec low salt diet and exercise and wt loss.. 04/30/2024 Seizure disorder (IC D-10 - G40.909) cont rx..call if issues 12/06/2024 Seizure disorder (IC D-10 - G40.909) 01/15/2025 -donor kidne y transplant recipient (ICD-10 - Z94.0) 01/15/2025 Vitamin D deficiency (ICD-10 - E55.9) 12/06/2024 Other hyperlipidemia (ICD-10 - E78.49) 04/30/2024 Pure hypercholesterolemia (ICD-10 - E78.00) cont rx..follow labs..low fat diet 04/30/2024 End stage renal dise ase (ICD-10 - N18.6) cont rx and care with renal 12/06/2024 -donor kidne y transplant recipient (ICD-10 - Z94.0) 01/15/2025 Essential hypertensi on (ICD-10 - I10) 01/15/2025 Other hyperlipidemia (ICD-10 - E78.49) 04/30/2024 -donor kidne y transplant recipient (ICD-10 - Z94.0) cont rx and care with renal 04/30/2024 Vitamin D deficiency (ICD-10 - E55.9) [...] and/or breast biopsy if warranted 10/16/2023 Hemoglobin [id number] 04/30/2024 CBC With Differential/Platelet-[id number] TSH Rfx on Abnormal to Free [id number] LP+Non-HDL Cholesterol-224116 04/30/2024 Comp. Metabolic Panel [phone] Next Appt Details Provider Name:DEZ EARLY Clare, 05/27/2025 11:00:00 AM, [address] [place], [address], Insurance Providers Payer Name Payer Address Payer Phone Subscriber Number Group Number Insured Name Patient Relationship to Insured Coverage Start Date Coverage End Date [employer]IC[employer] [address] [place] [address] [id number] MERCEDEZ HOFFMAN Self - patient is the insured 5 [employer] [address] [place] [address] [id number] MERCEDEZ HOFFMAN Self - patient is the insured 5 Medical (General) History Medical History History ICD [...] drainage of subdural hem atoma. 09/24/2015 hip 2011 Right arm fistula repair 01/18/2022 renal transplant 09/30/2022 Hospitalization History Reason Date(Month/Year) [facility]-Acute subdural hematoma. 09/24/2015 [facility]-Right cerebral infarct. 09/28/2015 [facility]: Acute renal failure 10/19/2020 [facility] ED: partial seizure 06/18/2021 [facility]: pneumonia versus asymmetric pulmona ry edema 12/01/21
--- OUTSIDE RECORDS SUMMARY | 2025-03-18 18:22 | XMS_ITS | Clinical Summary ---
Author Organization [facility] Address [address] [place] [address] Phone Care Team Providers Care Coupler Name Role Phone Toñito Sargent MD Primary Care Provider [phone] Allergies Active Allergy Reactions Criticality Noted Date [...] recommendations on her hypertension section. Non-ST elevation ME (NSTEMI) 03/24/2022 Overview (03/11/2024): - I met her in consultation in the hospital in November into early December 2021- she presented with hypoxic respiratory failure ultimately secondary to COVID-19 pneumonia - In the midst of all this, she had high-sensitivity troponins checked and trended and there was an acute rise going from 248 ly0814 down to 832 with flat CK but [...] to avoid confusion, I believe that the lead oracle developer should be the sole person in charge of blood pressure medication alterations versus her primary care. This is mainly so we avoid any interactions with transplant medications. She has regularly been following with her lead oracle developer and during those visits her blood pressures [...] Date Dependence on renal dialysis 12/23/2020 07/09/2024 Immunizations Immunization Administration Dates Next Due Pfizer [...] History Date Comments Dependence on renal dialysis ([facility] V24) 12/23 Diabetes mellitus ([facility] V24, [facility] V28) Hypertension GERD (gastroesophageal reflux disease) Thyroid [...] Maintenance Results * COLONOSCOPY Anesthesia - MAC; [facility] ENDOSCOPY (08/29/2024 3:43 PM EDT) Anatomical [...] for surveillance. Narrative 08/29/2024 3:45 PM EDT [facility] Patient Name: Daisy Reyes Procedure Date: [...] not prolapse). Procedure Code(s): --- Professional --- 95647, Colonoscopy, flexible; with removal of tumor(s), polyp(s), or other lesion(s) by snare technique Diagnosis Code(s): --- Professional --- Z86.010, Personal history of colonic polyps D12.2, Benign neoplasm of ascending colon D12.3, Benign neoplasm of transverse colon (hepatic flexure or splenic flexure) CPT copyright 2020 [employer]. All rights reserved. The codes documented in this report are preliminary and upon machine maintenance review may be revised to meet current compliance requirements. Ebony Bradley MD 08/29/2024 3:44:34 PM This report has been signed electronically.Ebony Bradley MD Number of Addenda: 0 Note Initiated On: 08/29/2024 2:57 PM Scope In: Scope Out: Endoscopy Department at [facility] - [address] [place] [phone] Procedure Note Ebony Bradley MD - 08/29/2024 [facility] Patient Name: Daisy Reyes Procedure Date: [...] not prolapse). Procedure Code(s): --- Professional --- 97583, Colonoscopy, flexible; with removal of tumor(s), polyp(s), or other lesion(s) by snare technique Diagnosis Code(s): --- Professional --- Z86.010, Personal history of colonic polyps D12.2, Benign neoplasm of ascending colon D12.3, Benign neoplasm of transverse colon (hepatic flexure or splenic flexure) CPT copyright 2020 [employer]. All rights reserved. The codes documented in this report are preliminary and upon machine maintenance reviewmay be revised to meet current compliance requirements. Ebony Bradley MD 08/29/2024 3:44:34 PM This report has been signed electronically.Ebony Bradley MD Number of Addenda: 0 Note Initiated On: 08/29/2024 2:57 PM Scope In: Scope Out: Endoscopy Department at [facility] - [address] [place] [phone] IMPRESSION: - Hemorrhoids found on perianal exam. 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
== END 2025-03-18 15:04 | disposition home or self-care (01) ==
LOC: HO.HKAS 14:10
PROVIDERS: PCP Physician Assistant; Visit Provider Internal Medicine Nephrology
DX: N17.9 Acute kidney failure, unspecified (principal); B34.8 Other viral infections of unspecified site; Z94.0 Kidney transplant status; I10 Essential (primary) hypertension
CPT/HCPCS: 99214

== ENCOUNTER → 2025-03-18 14:09 | Outpatient (BNVA) | payer MEDICARE, OTHER, SELFPAY | PROVIDERS: PCP Physician Assistant; Visit Provider Internal Medicine Nephrology | DX: Z94.0 Kidney transplant status (principal); B33.8 Other specified viral diseases; N17.9 Acute kidney failure, unspecified; I10 Essential (primary) hypertension | CPT/HCPCS: 99212 ==

== ENCOUNTER 2025-03-20 12:12 | Outpatient (REF) | payer MEDICARE, OTHER, SELFPAY ==
--- OUTSIDE RECORDS SUMMARY | 2024-11-01 03:45 | XMS_ITS ---
Author Organization [facility] Address [address] [place] [address] Care Team Providers Care It Support Specialist Name Role Phone DEZ SHARPE Primary Care Provider [phone] MARLA RICHARDS Unavailable [phone] REASON FOR VISIT 27/6mo f/u Encounters Encounter Location Date Provider Diagnosis [address] [address] 11/01/2024 DEZ SHARPE Plan Of Treatment Next Appt Details Provider Name:DEZ Sparks, 05/27/2025 11:00:00 AM, [address] [place] [address], [phone], Progress Notes * MERCEDEZ ELIAS MDOB:[birth year] (75 yo F)Acc No.[id number]:11/01/2024 Progress Notes Patient: MERCEDEZ PATRICIA Provider: Yesenia Sharpe MD :1950 A ge:74 Y S ex:Female Date:11/01/2024 Address:[address] [facility] Subjective: * Chief Complaints: * 2 7/6mo f/u * Electronic signature of LAURYN SHARPE M.D. on 03/20/2025 at 04:03 PM EST Sign off status: Pending * Provider: Yesenia Sharpe MD Date: 0 11/01/2024 Generated for Paddy morris/Nahum/Dianna on: 1 05/21/2024 04:03 PM EST
[2025-03-20 14:19] LABS: Appearance Urine Cloudy; Glucose Urine UA Negative (Negative); PH 8.0 (5.0-9.0); Specific Gravity - Urine 1.010 (1.005-1.025); UMIC TRIGGER UA YES
[2025-03-20 15:19] LABS: Total Protein Urine Random < 7 mg/dL (<12)
--- OUTSIDE RECORDS SUMMARY | 2025-03-20 16:04 | XMS_ITS | Encounter Summary ---
Author Organization [facility] Address [address] [address] Phone Care Team Providers Care Upsetter Setter Up Name Role Phone Monica Iniguez PA-C Primary Care Provider + Encounter Details Date Type Department Care Team (Late st Contact Info) Description 03/19/2025 Orders Only [facility] [address] [phone] David Ferrera MD [address] [place] [id number] Social History Tobacco Use Types Packs/Day Years [...] as of this encounter Plan of Treatment Pending Results Name Type Priority Associated Diagnoses Date /Time DSA Lab Routine 03/19/2025 11: 42 AM EST BK virus, DNA, quantitative Lab Routine 03/19/2025 11:42 AM EST HLA Class I Antibody, Panel-reactive Antibody (PRA) Lab Routine 03/19/2025 11:42 AM EST HLA CLASS II ANTIBODY HD Lab Routine 03/19/2025 11:42 AM EST documented as of this encounter Procedures Procedure Name Priority Date/Time Associated Diagnosis Comments DSA (DONOR SPECIFIC AG) Routine 03/19/2025 11:42 AM EST HLA CLASS II ANTIBODY HD Routine 03/19/2025 11:42 AM EST BK VIRUS, DNA, QUANTITATIVE Routine 03/19/2025 11:42 AM EST HLA CLASS I PRA, ANTIGEN-BOUND BEADS Routine 03/19/2025 11:42 AM EST PROTIME-INR Routine 03/19/2025 11:42 AM EST CBC AND DIFFERENTIAL Routine 03/19/2025 11:42 AM EST documented in this encounter Results * Protime-INR (03/19/2025 11:42 AM EST) INR 1.0 0.9 - 1.2 [facility] Comment: Reference interval is for non-anticoagulated patients. Suggested INR therapeutic range for Vitamin K antagonist therapy: Standard Dose (moderate intensity therapeutic range): 2.0 - 3.0 Higher intensity therapeutic range 2.5 - 3.5 Protime 10.8 9.1 - 12.0 sec [facility] 03/19/2025 11:4 2 AM EST 03/19/2025 us David Ferrera MD LAB BLOOD ORDERABLES Final Resul t [facility] [address] [place] [address] * (ABNORMAL) CBC and Differential (03/19/2025 11:42 AM EST) WBC 6.1 3.4 - 10.8 x10E3/uL [facility] RBC 3.46(L) 3.77 - 5.28 x10E6/uL [facility] Hemoglobin 10.4(L) 11.1 - 15.9 g/dL [facility] Hematocrit 32.3(L) 34.0 - 46.6 % [facility] MCV 93 79 - 97 fL [facility] MCH 30.1 26.6 - 33.0 pg [facility] MCHC 32.2 31.5 - 35.7 g/dL [facility] RDW 13.5 11.7 - 15.4 % [facility] Platelets 225 150 - 450 x10E3/uL [facility] Neutrophils Relative 69 Not Estab. % [facility] Lymphocytes Relative 19 Not Estab. % [facility] Monocytes 10 Not Estab. % [facility] Eosinophils Relative 1 Not Estab. % [facility] Basophils Relative 0 Not Estab. % [facility] Neutrophils Absolute 4.2 1.4 - 7.0 x10E3/uL [facility] Lymphocytes Absolute 1.1 0.7 - 3.1 x10E3/uL [facility] Monocytes Absolute 0.6 0.1 - 0.9 x10E3/uL [facility] Eosinophils Absolute 0.0 0.0 - 0.4 x10E3/uL [facility] Basophils Absolute 0.0 0.0 - 0.2 x10E3/uL [facility] Immature Granulocytes 1 Not Estab. % [facility] Immature Grans (Absolute) 0.1 0.0 - 0.1 x10E3/uL [facility] 03/19/2025 11:4 2 AM EST 03/19/2025 us David Ferrera MD LAB BLOOD ORDERABLES Final Resul t [facility] [address] [place] [address] documented in this encounter Visit Diagnoses Not on filedocumented in this encounter Care Teams Upsetter Setter Up Relationship Specialty Start Date End Date Monica Iniguez PA-C [address] [place] [id number] PCP - General Physician Loading Machine Adjuster 07/05/23 documented as of this encounter
--- OUTSIDE RECORDS SUMMARY | 2025-03-20 16:04 | XMS_ITS | Clinical Summary ---
Author Organization [facility], Address [address] [place] [address] Phone Care Team Providers Care Latin American Studies Professor Name Role Phone Monica Iniguez PA-C Primary [...] hyperparathyroidism of renal origin Essential hypertension 10/23/2020 Encounters Date Type Department Care Team Description 03/19/2025 Orders Only [facility] [address] [place] [phone] David Ferrera MD from Last 3 Months Immunizations Immunization Administration Dates Next Due Hepatitis [...] Procedure Name Priority Date/Time Associated Diagnosis Comments HLA CLASS II ANTIBODY HD Routine 03/19/2025 11:42 AM EST HLA CLASS I PRA, ANTIGEN-BOUND BEADS Routine 03/19/2025 11:42 AM EST BK VIRUS, DNA, QUANTITATIVE Routine 03/19/2025 11:42 AM EST PROTIME-INR Routine 03/19/2025 11:42 AM EST DSA (DONOR SPECIFIC AG) Routine 03/19/2025 11:42 AM EST CBC AND DIFFERENTIAL Routine 03/19/2025 11:42 AM EST SPECIAL CHEMISTRY Routine 01/05/2022 3:3 0 PM EDT from Last 3 Months or Most Recently Relevant to Health Maintenance Results * Protime-INR (03/19/2025 11:42 AM EST) INR 1.0 0.9 - 1.2 [facility] Comment: Reference interval is for non-anticoagulated patients. Suggested INR therapeutic range for Vitamin K antagonist therapy: Standard Dose (moderate intensity therapeutic range): 2.0 - 3.0 Higher intensity therapeutic range 2.5 - 3.5 Protime 10.8 9.1 - 12.0 sec [facility] 03/19/2025 11:4 2 AM EST 03/19/2025 us David Ferrera MD LAB BLOOD ORDERABLES Final Resul t [facility] [address] [place] [address] * (ABNORMAL) CBC and Differential (03/19/2025 11:42 AM EST) WBC 6.1 3.4 - 10.8 x10E3/uL [facility] RBC 3.46(L) 3.77 - 5.28 x10E6/uL [facility] Hemoglobin 10.4(L) 11.1 - 15.9 g/dL [facility] Hematocrit 32.3(L) 34.0 - 46.6 % [facility] MCV 93 79 - 97 fL [facility] MCH 30.1 26.6 - 33.0 pg [facility] MCHC 32.2 31.5 - 35.7 g/dL [facility] RDW 13.5 11.7 - 15.4 % [facility] Platelets 225 150 - 450 x10E3/uL [facility] Neutrophils Relative 69 Not Estab. % [facility] Lymphocytes Relative 19 Not Estab. % [facility] Monocytes 10 Not Estab. % [facility] Eosinophils Relative 1 Not Estab. % [facility] Basophils Relative 0 Not Estab. % [facility] Neutrophils Absolute 4.2 1.4 - 7.0 x10E3/uL [facility] Lymphocytes Absolute 1.1 0.7 - 3.1 x10E3/uL [facility] Monocytes Absolute 0.6 0.1 - 0.9 x10E3/uL [facility] Eosinophils Absolute 0.0 0.0 - 0.4 x10E3/uL [facility] Basophils Absolute 0.0 0.0 - 0.2 x10E3/uL [facility] Immature Granulocytes 1 Not Estab. % [facility] Immature Grans (Absolute) 0.1 0.0 - 0.1 x10E3/uL [facility] 03/19/2025 11:4 2 AM EST 03/19/2025 us David Ferrera MD LAB BLOOD ORDERABLES Final Resul t [facility] [address] [place] [address] * (ABNORMAL) SPECIAL CHEMISTRY (01/05/2022 3:30 PM EDT) Hemoglobin A1C 4.3(L) 4.8 - 5.9 % [facility] 01/05/2022 3:30 PM EDT 01/06/2022 7:16 AM EDT Narrative [facility] - 01/05/2022 3:30 PM EDT Unless otherwise specified, test(s) performed at: [place] [address] AUDIO VISUAL EQUIPMENT RENTAL CLERK: Rosendo Long M.D. For any questions, please call customer service at FREQUENCY:QUARTERLY Resulting Agency Comment Specimen source: Blood David Ferrera MD LAB BLOOD BANK TEST ORDERABLES F inal Result [facility] from Last 3 Months or Most Recently Relevant to Health Maintenance [place] [address] Medicare [facility] Medicare Care Teams Latin American Studies Professor Relationship Specialty Start Date End Date Monica Iniguez PA-C [address] [place] [address] PCP - General Physician Executive Wellness Programs Director 07/05/23
--- OUTSIDE RECORDS SUMMARY | 2025-03-20 16:04 | XMS_ITS | Clinical Summary ---
Author Organization [facility] Address [address] [facility] [place] [address] Phone Care Team Providers Care Washing Machine Striper Name Role Phone Toñito Sargent MD Primary Care Provider [phone] Allergies Active Allergy Reactions Criticality Noted Date [...] recommendations on her hypertension section. Non-ST elevation NC (NSTEMI) 03/24/2022 Overview (03/11/2024): - I met her in consultation in the hospital in November into early December 2021- she presented with hypoxic respiratory failure ultimately secondary to COVID-19 pneumonia - In the midst of all this, she had high-sensitivity troponins checked and trended and there was an acute rise going from 248 [id number] down to 832 with flat CK but [...] to avoid confusion, I believe that the scene and lighting design lecturer should be the sole person in charge of blood pressure medication alterations versus her primary care. This is mainly so we avoid any interactions with transplant medications. She has regularly been following with her scene and lighting design lecturer and during those visits her blood pressures [...] History Date Comments Dependence on renal dialysis ([facility] V24) 12/23 Diabetes mellitus ([facility] V24, [facility] V28) Hypertension GERD (gastroesophageal reflux disease) Thyroid [...] Maintenance Results * COLONOSCOPY Anesthesia - MAC; [facility] ENDOSCOPY (08/29/2024 3:43 PM EDT) Anatomical [...] for surveillance. Narrative 08/29/2024 3:45 PM EDT [facility] Patient Name: Daisy Reyes Procedure Date: [...] not prolapse). Procedure Code(s): --- Professional --- 11872, Colonoscopy, flexible; with removal of tumor(s), polyp(s), or other lesion(s) by snare technique Diagnosis Code(s): --- Professional --- Z86.010, Personal history of colonic polyps D12.2, Benign neoplasm of ascending colon D12.3, Benign neoplasm of transverse colon (hepatic flexure or splenic flexure) CPT copyright 2020 [employer]. All rights reserved. The codes documented in this report are preliminary and upon senior medical transcriptionist review may be revised to meet current compliance requirements. Ebony Bradley MD 08/29/2024 3:44:34 PM This report has been signed electronically.Ebony Bradley MD Number of Addenda: 0 Note Initiated On: 08/29/2024 2:57 PM Scope In: Scope Out: Endoscopy Department at [facility] - [address] [place] [phone] Procedure Note Ebony Bradley MD - 08/29/2024 [facility] Patient Name: Daisy Reyes Procedure Date: [...] not prolapse). Procedure Code(s): --- Professional --- 58176, Colonoscopy, flexible; with removal of tumor(s), polyp(s), or other lesion(s) by snare technique Diagnosis Code(s): --- Professional --- Z86.010, Personal history of colonic polyps D12.2, Benign neoplasm of ascending colon D12.3, Benign neoplasm of transverse colon (hepatic flexure or splenic flexure) CPT copyright 2020 [employer]. All rights reserved. The codes documented in this report are preliminary and upon senior medical transcriptionist reviewmay be revised to meet current compliance requirements. Ebony Bradley MD 08/29/2024 3:44:34 PM This report has been signed electronically.Ebony Bradley MD Number of Addenda: 0 Note Initiated On: 08/29/2024 2:57 PM Scope In: Scope Out: Endoscopy Department at [facility] - [address] [place] [phone] IMPRESSION: - Hemorrhoids found on perianal exam. [...] Recently Relevant to Health Maintenance Insurance MEDICARE [facility] Advance Directives Documents on File Type Date Recorded Patient Transplant Rn Expl anation Health Care Decision (hx) 09/25/2015 [...] (hx) 09/25/2015 AD KERR DIRECTIVE Care Teams Washing Machine Striper Relationship Specialty Start Date End Date Toñito Sargent MD [address] [place] [address] PCP - General Internal Medicine 08/23/24
--- OUTSIDE RECORDS SUMMARY | 2025-03-20 16:04 | XMS_ITS | Patient Health Record ---
Author Organization [facility] Address [address] [place] [address] Care Team Providers Care Underwear Cutter Name Role Phone DEZ OREILLY Primary Care Provider MARLA RICHARDS Unavailable [phone] Allergies Allergen (clinical drug ingredient) Drug/Non Drug Allergy documented on EMR Reaction Allergy Type Onset Date Status sulfamethoxazole / trimethoprim Bactrim tongue swelling Drug Allergy Active codeine Codeine itching Drug Allergy Active Reason For Referral Reason (2)back pain ( 5, 04/30/24 W appt Ref[facility]erring Provider First Name EDZ Referring Provider Last Name AFIA Referring Provider [...] PSS referral to be sent to [facility], she does not want to go to [facility]., see message started., Zulema ORR Referrals 07/16/2024 02:27:51 PM > noted, medical referral and notes have been faxed to [facility] at [phone], Zulema ORR Referrals 10/09/2024 11:09:03 AM > per incoiming correspondenced from [facility]. the patient was seen on 09/05/24 Referral Priority Routine Reason [facility] (06/25/24 W appt) Referral Organization [facility] As marguerite Referring Provider First Name MARLA Referring Provider Last Name SUSIE Referring Provider Speciality Nurse Alberta strauss Referred Provider DAVINA ESTES Referred Provider Specialty Gastroentero logy General Notes Zulema ORR Referrals 06/25/2024 02:51:43 PM > reqest for last ov note/demo/med and allergy list received from [facility], fax: [phone], medical referral and notes have been faxed to [facility] at [phone], Breonna ORR Referrals 01/16/2025 09:32:59 PM > CALL OFFICE TO SEE IF PATIENT WAS SEEN, NO NOTE IN CHART, Zulema ORR Referrals 03/13/2025 04:27:24 PM > per incoming correspondenced from [facility] dated 08/29/25, the patient had a colonoscopy on 08/29/24 Referral Priority Routine Reason please call and cons ult dr valdes at [facility] for dx hip pain ??redo THR....appt has to be with [facility] bravo [facility] Referral Organization [facility] marguerite Referring Provider First Name DEZ Referring Provider Last Name AFIA Referring Provider Speciality Internal M edicine General Notes Cristin ORR [place] 02:40:21 PM > please call and consult dr valdes at [facility] for dx hip pain ??redo THR....appt has to be with [facility] bravo [facility] Referral Priority Routine Medications Medication SIG [...] Dont use IM Intramuscular 01/17/2019 Administered Se [place]ellycoaster. Influenza Unknown 02/05/2010 Administered Influenza Unknown 12/22/2010 [...] acher/therapist asbestos exposure: No Past year's travels: [place] alcohol use: yes occasionally drug use: No Hobbies/Exercise habits: dance Coffee/Tea/Soda: yes No Coffee, Tea 1-2 daily, Soda occasionally Marital Status experience No Living with Pets 1 dog smokers in household No pt never sm jayesh Section Notes: never smoked never smoked never smoked Problems Problem Type SNOMED Code ICD Code Onset Dates Problem Status W/U Status Risk Notes Problem Anxiety disorder (536352698) Anxiety disorder NOS (300.00) Active confirmed Problem Osteoarthritis (300104437) osteoarthritis (715.90) Active confirmed Problem Essential hypertension (15340045) Essential hypertension (I10) Active confirmed Problem Vitamin D deficiency (32988567) Vitamin D deficiency (E55.9) Active confirmed Problem Nausea (864548346) Nausea (R11.0) Active confir med Problem Multinodular goiter (871803733) Multinodular goiter (E04.2) Active confirmed Problem Abnormal mammogram (395971565) Abnormal mammogram (R92.8) Active confirmed Problem Diabetic renal disease (983936886) 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.29) Active confirmed Problem End stage renal disease (93084154) End stage renal disease (N18.6) Active confirmed Problem Proteinuria (88878008) Proteinuria, unspecified (R80.9) Active confirmed Problem Seizure disorder (968048912) Seizure disorder (G40.909) Active confirmed Problem Gastroesophageal reflux disease without esophagitis (857552495) Gastroesophageal reflux disease without esophagitis (K21.9) Active confirmed Problem Type II diabetes mellitus without complication (441447768) Type 2 diabetes mellitus without complication (E11.9) Active confirmed Problem Insomnia disorder related to another mental disorder (92000085) Psychophysiological insomnia (F51.04) Active confirmed Problem Aortic valve disorde r (5152833) Aortic stenosis, moderate (I35.0) Active confirmed Problem Posttraumatic stress disorder (01832962) PTSD (post-traumatic stress disorder) (F43.10) Active confirmed Problem Acute non-ST segment elevation myocardial infarction (447680365) NSTEMI (non-ST elevated myocardial infarction) (I21.4) Active confirmed Problem Acute non-ST segment elevation myocardial infarction (007095205) Non-STEMI (non-ST elevated myocardial infarction) (I21.4) Active confirmed Problem Otalgia of right ear (finding) (2440008825) Otalgia, right (H92.01) Active confirmed Problem Primary hypertension (71753942) Primary hypertension (I10) Active confirmed Problem Pure hypercholesterolemia (114363266) Pure hypercholesterolemia (E78.00) Active confirmed Problem Pure hypercholesterolemia (813400799) Pure hypercholesterolemia, unspecified (E78.00) Active confirmed Problem Hallucinations (7886055) Auditory hallucination (R44.0) Active confirmed Problem Sciatica (84517397) Acute right- sided low back pain with left-sided sciatica (M54.42) Active confirmed Problem Cardiomyopathy (42675306) Cardiomyopathy, unspecified type (I42.9) Active confirmed Problem Hyperparathyroidism due to renal insufficiency (14565137) Secondary hyperparathyroidism (of renal origin) (N25.81) Active confirmed Problem Hyperlipidemia (09496291) Other hyperlipidemia (E78.49) Active confirmed Problem Low back pain (041320500) Low back pain, unspecified (M54.50) Active confirmed Problem Diabetic renal disease (235019849) Chronic kidney disease due to diabetes mellitus (E11.22) Active confirmed Problem History of renal transplant (149927641) -donor kidney transplant recipient (Z94.0) Active confirmed Vital Signs Blood pressure diastolic 80 mm Hg 01/15/2025 o2 94 Height 61.5 in 01/15/2025 o2 94 Blood pressure systolic 124 mm Hg 01/15/2025 o2 9 4 Weight 00 lbs 01/15/2025 o2 94 BMI 28.29 kg/m2 04/30/2024 Encounters Encounter Location Date Provider Diagnosis [address] [address] 04/30/2024 DEZ OREILLY Medicare annual well ness visit, subsequent Z00.[address] [address] 04/30/2024 DEZ OREILLY Gastroesophageal ref lux disease without esophagitis K21.9 ; Type 2 diabetes mellitus without complication E11.9 ; Essential hypertension I10 ; Seizure disorder G40.909 ; Pure hypercholesterolemia E78.00 ; End stage renal disease N18.6 ; -donor kidney transplant recipient Z94.0 and Vitamin D deficiency E55.[address] [address] 12/06/2024 DEZ OREILLY Type 2 diabetes rylee itus without complication E11.9 ; Acute bilateral low back pain without sciatica M54.50 ; Essential hypertension I10 ; Seizure disorder G40.909 ; Other hyperlipidemia E78.49 and -donor kidney transplant recipient Z94.[address] [address] 01/15/2025 DEZ OREILLY Acute right-sided lo w back pain with left-sided sciatica M54.42 ; Mid back pain M54.9 ; Hyperglycemia R73.9 ; -donor kidney transplant recipient Z94.0 ; Vitamin D deficiency E55.9 ; Essential hypertension I10 and Other hyperlipidemia E78.[address] [address] 04/06/2024 DEZ [place] [phone] 04/30/[address] [address] 05/27/2024 DEZ OREILLY Encounter for screen ing mammogram for malignant neoplasm of breast Z12.[address] [address] 06/17/2024 DEZ [facility] [address] [address] 07/15/2024 DEZ [facility] [address] [address] 08/23/2024 DEZ [facility] [address] [address] 08/28/2024 DEZ [facility] [address] [address] 10/28/2024 DEZ [facility] [address] [address] 12/06/[address] [address] 12/13/2024 [facility] [address] [address] 01/14/2025 [facility] [address] [address] 01/14/2025 [facility] [address] [address] 01/15/2025 [facility] [address] [address] 01/15/2025 [facility] [address] [address] 01/16/[address] [address] 01/17/[address] [address] 01/24/[address] [address] 01/24/[address] [address] 02/04/[address] [address] 03/14/2025 [facility] Acute right-sided lo w back pain with left-sided sciatica M54.42 Assessments Encounter Date Diagnosis (ICD Code) Assessment Notes Treatment Notes Treatment Clinical Notes Section Notes 03/14/2025 Acute right-sided lo w back pain with left-sided sciatica (ICD-10 - M54.42) 04/30/2024 Medicare annual well ness visit, subsequent (ICD-10 - Z00.00) AWV form reviewed with pt 04/30/2024 Gastroesophageal ref lux disease without esophagitis (ICD-10 - K21.9) rec contined avoidance of spicy foods..wt loss..no nsaids..will rx PPI for 2 months..call me INB 1-2 weeks 04/30/2024 Type 2 diabetes rylee itus without complication (ICD-10 - E11.9) slip for labs..diet and exercise..sl ip for labs given tp pt 05/27/2024 Encounter for screen ing mammogram for malignant neoplasm of breast (ICD-10 - Z12.31) 12/06/2024 Type 2 diabetes rylee itus without [...] (ICD-10 - M54.42) will rx medrol..chec k kabs..will try and find dr lundy... will check mri of ls spine and t spoine as well 01/15/2025 Hyperglycemia (ICD-1 0 - R73.9) needs [...] and/or breast biopsy if warranted 10/16/2023 Hemoglobin [id number] 04/30/2024 CBC With Differential/Platelet-[id number] TSH Rfx on Abnormal to Free [id number] LP+Non-HDL Cholesterol-[id number] 04/30/2024 Comp. Metabolic Panel [id number] 2024 Next Appt Details Provider Name:DEZ EARLY Clare, 05/27/2025 11:00:00 AM, [address] [place], [address], Insurance Providers Payer Name Payer Address Payer Phone Subscriber Number Group Number Insured Name Patient Relationship to Insured Coverage Start Date Coverage End Date MEDICARE [employer] [address] MARKOS Anderson [address] [id number] MERCEDEZ HOFFMAN Self - patient is the insured [employer] [place] [address] JOS[place] ALONZO [address] [id number] MERCEDEZ HOFFMAN Self - patient is [...]
--- OUTSIDE RECORDS SUMMARY | 2025-03-20 16:04 | XMS_ITS | Encounter Summary ---
Author Organization [facility] Address [address] [place] [address] Phone Care Team Providers Care Research Coordinator Name Role Phone Monica Iniguez PA-C Primary Care Provider + Reason for Visit * Reason Comments Med Refill Encounter Details Date Type Department Care Team (Late st Contact Info) Description 07/11/2022 Refill [facility] [address] [place] [address] David Ferrera MD [address] [place] [phone] Social History Tobacco Use Types Packs/Day Years [...] on filedocumented in this encounter Care Teams Research Coordinator Relationship Specialty Start Date End Date Monica Iniguez PA-C [address] [place] [id number] PCP - General Physician Slip Laster 07/05/23 documented as of this encounter
--- OUTSIDE RECORDS SUMMARY | 2025-03-20 16:04 | XMS_ITS | Encounter Summary ---
Author Organization [facility] Address [address] [facility] [facility] [address] [place] [address] Phone Care Team Providers Care Latex Ribbon Machine Operator Name Role Phone Monica Iniguez PA-C Primary Care Provider + Reason for Visit * Reason Comments Med Refill Encounter Details Date Type Department Care Team (Late st Contact Info) Description 06/27/2022 Refill [facility] [address] [facility] [address] [address] [place] [address] David Ferrera MD [address] [place] [id number] Social History Tobacco Use Types Packs/Day Years [...] on filedocumented in this encounter Care Teams Latex Ribbon Machine Operator Relationship Specialty Start Date End Date Monica Iniguez PA-C [address] [place] [phone] PCP - General Physician Photocomposing Keyboard Operator 07/05/23 documented as of this encounter
--- OUTSIDE RECORDS SUMMARY | 2025-03-20 16:04 | XMS_ITS | Clinical Summary ---
Author Organization [facility] Address [address] [place] [address] Care Team Providers Care Practical Ministries Professor Name Role Phone Dyana Lockhart MD Primary Care Provider [phone] Social History Tobacco Use Types Packs/Day Years [...] series) 2025 Medical Devices Implanted Type Area Lining Stamper Device Identifier Shelf Expiration Date Model / Serial / Lot [id number] Lens Iol +24.5 Batool Mod C 13mm 6mm Posterior Chamber 1 Pc - [id number] Implanted:Qty: 1 on 02/22/2024 by Serjio Parada MD at [facility] [place] [employer] [id number] / [id number] / [id number] Lens Iol +23.5 Batool Mod C 13mm 6mm Posterior Chamber 1 Pc - [id number] Implanted:Qty: 1 on 03/14/2024 by Serjio Parada MD at [facility] [place] [employer] [id number] / [id number] / Insurance MEDICARE PART A & B [facility] MEDICARE Care Teams Practical Ministries Professor Relationship Specialty Start Date End Date Dyana Lockhart MD [address] [place] [address] PCP - General Family Medicine 03/16/23
== END 2025-03-20 12:13 | disposition home or self-care (01) ==
LOC: HO.HKASLDS 12:12
PROVIDERS: PCP Internal Medicine; Visit Provider Internal Medicine Nephrology
DX: N17.9 Acute kidney failure, unspecified (principal); Z94.0 Kidney transplant status
CPT/HCPCS: 81001; 82570; 84156; 84300